=== PATIENT | male | born 1985 | race Caucasian/White ===

== ENCOUNTER 2023-10-12 11:58 | Inpatient (IN) | payer SELFPAY ==
[2023-10-12] VITALS (7 sets, daily range): BP systolic 123–135; BP diastolic 81–87; PULSE 94–113; RESP 18–24; TEMP 36.4–36.7; O2SAT 89–95; BMI 35.6; BMI 34.4
--- NOTE | ~2023-10-12 | XR_ITS ---
EXAMINATION: XR CHEST 2 VIEW CLINICAL INFORMATION: Cough COMPARISON: None TECHNIQUE: PA and lateral views of the chest obtained. FINDINGS: There is a right suprahilar masslike opacity with adjacent infiltration extending into the right upper lobe. The left lung is clear. There are no pleural effusions. The cardiac silhouette is nonenlarged XR/XR chest 2V IMPRESSION: Right suprahilar masslike opacity, perhaps reflecting pneumonia. Close follow-up is recommended to confirm clearing. If persistent, suggest thoracic CT.
--- NOTE | ~2023-10-12 | CT_ITS ---
EXAMINATION: CT CHEST WITH CONTRAST CLINICAL INFORMATION: Masslike opacity right upper lobe COMPARISON: Previous chest x-ray from earlier the same day TECHNIQUE: Multidetector volumetric CT imaging of the chest was obtained after the administration of 65 mL of Omnipaque 350 intravenous contrast without immediate adverse reactions. Axial MIP volume rendering provided. Sagittal and coronal reformatted images were obtained. This CT examination was performed using dose optimization techniques as appropriate, variously including the following: *Automated exposure control *Adjustment of mA and/or kV according to patient size (this includes techniques or standardized protocols for targeted exams where dose is matched to indication/reason for exam; i.e. extremities or head) *Use of iterative reconstruction technique DLP: 345 mGy-cm FINDINGS: LUNGS: There are scattered areas of mild bronchial wall thickening probably representing airways disease. No evidence of pneumonia or mass. No bronchiectasis. No endobronchial or endotracheal lesion. MEDIASTINUM: The mediastinum is normal. Normal heart size. No pericardial effusion. No enlarged hilar or mediastinal lymph nodes. Normal vascular structures. Mild coronary artery calcification. PLEURA: There is no pleural effusion. No pleural mass or thickening. AXILLA: No lymphadenopathy. UPPER ABDOMEN: Fatty liver. OSSEOUS STRUCTURES: Unremarkable. CT/CT chest w IV con IMPRESSION: Mild scattered areas of bronchial wall thickening. No evidence of pneumonia or mass. Fleischner guidelines were followed.
--- NOTE | 2023-10-12 12:04 | ED.GENADULT ---
HPI - General Adult General Chief complaint: Dyspnea Stated complaint: SOB Time Seen by Provider: 10/12/23 13:15 Source: patient, RN notes reviewed and old records reviewed Mode of arrival: ambulatory Limitations: no limitations History of Present Illness ED Provider: JOLLY ROYAL PA-C HPI narrative: 38-year-old male, tobacco smoker (1/2 pack/day) past medical history of uncontrolled type 2 diabetes and hypertension presents to the ED today for evaluation of shortness of breath and dyspnea x5 days, worsening. He reports symptoms initially began with sore throat and nasal congestion. He now reports feeling short of breath. Admits to cough productive of yellow sputum. Adds his father who he lives with was recently treated for strep throat. Admits to taking amoxicillin over the last few days that he had left over from an ear infection approximately a month ago. Denies known history of asthma or COPD. Admits to smoking tobacco currently however has not been able to smoke as much due to his shortness of breath. Denies recent travel or long car rides. Denies fever, chills, chest pain, calf pain/swelling, hemoptysis, palpitations. Related Data Allergies Allergy/AdvReac Type Severity Reaction Status Date / Time cat dander [CAT] Allergy Mild FACIAL Verified 10/12/23 12:07 SWELLING WATERY EYES dog dander [DOG] Allergy Mild FACIAL Verified 10/12/23 12:07 SWELLING, WATERY EYES Review of Systems Review of Systems: Constitutional: No fever, chills, fatigue, night sweats, weight changes ENT/Mouth: No ear pain, hearing loss, nasal congestion, sinus pain, rhinorrhea, sore throat Eyes: No eye pain, swelling, redness, vision changes, discharge Cardio: No chest pain, palpitations, WHALEN, orthopnea, peripheral edema Pulm: No cough, sputum, hemoptysis, +sob, +dyspnea, +wheezing GI: No nausea, vomiting, hematemesis, abdominal pain, diarrhea, constipation, hematochezia, melena : No irregular bleeding, dysuria, frequency, urgency, hesitancy, hematuria, flank pain, urinary flow changes, urinary incontinence or retention MSK: No back pain, neck pain, joint pain, myalgias Skin: No lesions, rashes Neuro: No weakness, numbness, paresthesias, LOC, dizziness, headache Psych: No anxiety/panic, depression, SI/HI, AH/VH All other systems reviewed and are negative. [facility], [facility] Past Medical History Attestation statement: The following information was validated with the patient. Source: old records reviewed and nursing notes reviewed Medical History Cigarette smoker Hypertension Type 2 diabetes mellitus Social History Social History Advance Directives: No Do you have a plan to hurt others: No Plan Physical Exam ED Vital Signs: Vital Signs - 24 hr 10/12/23 12:02 10/12/23 13:54 10/12/23 14:01 Temperature 98 F Pulse Rate 94 96 Respiratory Rate 24 H 18 Blood Pressure 123/83 Pulse Oximetry 92 90 L Oxygen Delivery Method Room Air 10/12/23 17:35 Temperature Pulse Rate Respiratory Rate Blood Pressure Pulse Oximetry 89 L Oxygen Delivery Method BMI result Body Mass Index 35.6 Tachypneic Const General: cooperative, healthy appearing and comfortable Orientation/consciousness: patient oriented x3 Limitations: no limitations HENMT Head: Yes normal to inspection, Yes No palpable skull fracture present, Yes normocephalic and Yes atraumatic Eyes General: appearance normal, both eyes and all related structures Neck Neck: Yes normal visual inspection, Yes full ROM and Yes no lymphadenopathy Resp Other: + mild respiratory distress. Increased effort of breathing with tripoding. Diffuse inspiratory wheezes and rhonchi. speaking in 3-4 word sentences. Cardio Rate: regular rate Rhythm: regular rhythm Skin General skin exam: no rashes or lesions noted Neuro General: patient oriented x3 and gait normal Course Course Course Narrative: This is a rapid medical exam performed by Chandana Kingston NP: Additional HPI, ROS, PE not included below will be deferred to primary provider. Patient is a 38-year-old male current smoker presenting to the ED with complaint of sore throat since Wednesday, shortness of breath, congestion. Father was diagnosed with strep so he started taking amoxicillin that was prescribed to him for an ear infection but symptoms have not improved. Also nausea and headaches, denies vomiting or diarrhea. PE: posterior oropharynx erythematous, nonproductive cough noted in triage Plan: viral and strep swabs, cxr Reevaluation(s) Reevaluation #1: 1457-- CBC without leukocytosis or left shift. No anemia. H&H stable. D-dimer undetectable > VTE unlikely. Chemistry without acute electrolyte abnormality requiring intervention. Random glucose 366. Patient states that he is diabetic however does not currently take medication for it. IV fluids ordered. Will repeat glucose. BNP WNL at 16. CHF unlikely. Normal renal and liver function. He has tested negative for COVID, flu, RSV, strep throat. Chest xr shows right sprahilar masslike opacity, perhaps suggesting pneumonia. Close follow-up recommended. Given patient's extensive shortness of breath along with hypoxia, will order CT chest with con to r/o pathology. Patient aware and agreeable. > ambulatory O2 dropped to 90% on room air 1751-- CT chest showing mild scattered areas of bronchial wall thickening without evidence of pneumonia or mass. On re-evaluation, patient reports minimal improvement in breathing following albuterol treatment, IV magnesium and IV Solu-Medrol. He still reports difficulty taking deep breaths in and out. On exam, there is improvement in wheezing however there are still rhonchi noted to bilateral bases. He is satting around 90% on room air while sitting on ED bed. Ambulatory O2 repeated and showed drop in oxygen saturation 89% on room air. Given continued symptoms with evidence of hypoxia, will present patient for admission. 1800-- Discussed with hospitalist who has agreed to admission for acute bronchitis and hypoxemia. Ginny Storey to place admission orders. Medications Administered Generic Name Dose Route Start Last Admin Trade Name Freq PRN Reason Stop Dose Admin Azithromycin 500 mg/ Sodium 250 mls @ 125 mls/hr 10/12/23 18:30 10/12/23 19:18 Chloride IV 125 mls/hr Q24H MARGUERITE Administration Discontinued Medications Generic Name Dose Route Start Last Admin Trade Name Freq PRN Reason Stop Dose Admin Albuterol Sulfate 2.5 mg/ 0 mg 10/12/23 13:57 10/12/23 14:01 Albuterol/Ipratropium 3 ml INHALE 10/12/23 13:58 1 dose ONCE ONE Administration Sodium Chloride 1,000 mls @ 999 mls/hr 10/12/23 14:30 10/12/23 16:16 Ns IV 10/12/23 15:30 Infused .Q1H1M MARGUERITE Infusion Magnesium Sulfate 2 gm in 50 mls @ 150 mls/hr 10/12/23 15:54 10/12/23 16:59 Magnesium Sulfate/H2o IV 10/12/23 16:13 Infused ONCE ONE Infusion Iohexol 100 ml 10/12/23 15:10 10/12/23 15:10 Iohexol 350 Mg/Ml 100 Ml Infus..Btl IV 10/12/23 15:11 65 ml ONCE ONE Administration Methylprednisolone Sodium Succinate 125 mg 10/12/23 13:41 10/12/23 14:25 Methylprednisolone Sod Succ 125 Mg/2 Ml Vial IVPUSH 10/12/23 13:42 125 mg ONCE ONE Administration Medical Decision Making Medical Decision Making MDM Narrative: 8-year-old male, tobacco smoker (1/2 pack/day) presents to the ED today for evaluation of shortness of breath and dyspnea x5 days, worsening. On presentation, patient tachypneic. Satting 92% on room air. On ambulatory O2, patient's oxygen saturation dropped to 90% on room air. On exam, patient in mild respiratory distress. Increased effort of breathing with tripoding. Diffuse inspiratory wheezes and rhonchi. speaking in 3-4 word sentences.. RRR. Skin warm/dry/intact. ambulating with steady gait. skin w/d/i. no rashes. Differential diagnosis includes asthma exacerbation, COPD exacerbation, pneumonia, bronchitis, viral syndrome, strep throat, anemia, CHF, electrolyte abnormality Plan for labs, viral/ strep swab, CXR, ED bronch protocol and re-evaluation. Differential Diagnosis Differential Diagnoses: The differential diagnosis associated with the presentation includes Above Admission/Observation Consideration of admission/observation: Escalation of care including admission/observation considered Patient to be admitted to medicine for acute bronchitis and hypoxemia. Consult Healthcare Provider Management of the patient was discussed with: Hospitalist (Dr. Andersen, Ginny Storey PA-C) Lab Data MDM Lab Attestation statement: I reviewed the patient's lab results. As above 10/12/23 13:50 10/12/23 13:50 Labs: Lab Results 10/12/23 10/12/23 10/12/23 Range/Units 12:16 13:48 13:50 WBC 7.0 (4.8-10.8) X10*3/uL RBC 5.42 (4.60-5.80) X10*6/uL Hgb 16.9 (14.0-18.0) g/dl Hct 46.1 (42.0-52.0) % MCV 85.1 (80.0-98.0) fL MCH 31.2 (27.0-33.0) pg MCHC 36.7 H (31.0-36.0) g/dl RDW 11.5 (11.0-16.0) % Plt Count 192 (160-400) X10*3/uL MPV 11.7 (9.4-12.4) fL Immature Gran % (Auto) 0.3 (0.0-0.4) % Neut % (Auto) 62.0 (45-73) % Lymph % (Auto) 24.6 (20-40) % [place] % (Auto) 8.5 (2-11) % Eos % (Auto) 4.0 (0-4) % Baso % (Auto) 0.6 (0-2) % Lymph # (Auto) 1.7 (1.2-4.9) X10*3/uL [place] # (Auto) 0.6 (0.1-1.2) X10*3/uL Eos # (Auto) 0.3 (0.0-0.4) X10*3/uL Baso # (Auto) 0.0 (0.0-0.2) X10*3/uL Abs Immat Gran (auto) 0.02 (0.00-0.03) X10*3/uL Absolute Neuts (auto) 4.4 (2.0-8.3) x10*3/uL Absolute Nucleated RBC 0.000 (0.0-0.012) X10*3/uL Nucleated RBC % (auto) 0.0 (0.0-0.2) /100WBC D-Dimer High Sensitivty < 150 NG/ML Sodium 136 (135-145) mmol/L Potassium 4.3 (3.3-5.1) mmol/L Chloride 99 (96-108) mmol/L Carbon Dioxide 27 (22-29) mmol/L Anion Gap 14 (12-20) BUN 13 (9-16) mg/dL Creatinine 0.92 (0.5-1.4) mg/dL Estim Creat Clear Calc 143.5 Estimated GFR > 60 Random Glucose 366 H* (60-115) mg/dL Calcium 9.9 (8.4-10.2) mg/dL Magnesium 1.7 (1.6-2.6) mg/dL Total Bilirubin 1.0 (0.0-1.0) mg/dL AST 25 (5-37) U/L ALT 49 H (0-40) U/L Alkaline Phosphatase 68 (39-117) U/L B-Natriuretic Peptide 16 (<100) pg/mL Total Protein 7.9 (6.5-8.0) g/dL Albumin 4.4 (3.5-5.0) g/dL Influenza Type A (PCR) NEGATIVE (Negative) Influenza Type B (PCR) NEGATIVE (Negative) RSV RNA Qual (PCR) NEGATIVE (Negative) SARS-CoV-2 RNA (RT-PCR) NEGATIVE (Negative) S. pyogenes GrpA ANDREA Negative (Negative) Independent Interpretation I performed an independent interpretation of an: Plain X-Ray and CT Scan Interpretation: XR with question consolidation to right upper lobe, agree with radiologist's interpretation. CT chest without mass, agree with radiologist's interpretation. Radiology Impression Discussion of test interpretation with radiology: I have reviewed the radiologist's reading. Radiologist Impression: EXAMINATION: XR CHEST 2 VIEW CLINICAL INFORMATION: Cough COMPARISON: None TECHNIQUE: PA and lateral views of the chest obtained. FINDINGS: There is a right suprahilar masslike opacity with adjacent infiltration extending into the right upper lobe. The left lung is clear. There are no pleural effusions. The cardiac silhouette is nonenlarged XR/XR chest 2V IMPRESSION: Right suprahilar masslike opacity, perhaps reflecting pneumonia. Close follow-up is recommended to confirm clearing. If persistent, suggest thoracic CT. EXAMINATION: CT CHEST WITH CONTRAST CLINICAL INFORMATION: Masslike opacity right upper lobe COMPARISON: Previous chest x-ray from earlier the same day TECHNIQUE: Multidetector volumetric CT imaging of the chest was obtained after the administration of 65 mL of Omnipaque 350 intravenous contrast without immediate adverse reactions. Axial MIP volume rendering provided. Sagittal and coronal reformatted images were obtained. This CT examination was performed using dose optimization techniques as appropriate, variously including the following: *Automated exposure control *Adjustment of mA and/or kV according to patient size (this includes techniques or standardized protocols for targeted exams where dose is matched to indication/reason for exam; i.e. extremities or head) *Use of iterative reconstruction technique DLP: 345 mGy-cm FINDINGS: LUNGS: There are scattered areas of mild bronchial wall thickening probably representing airways disease. No evidence of pneumonia or mass. No bronchiectasis. No endobronchial or endotracheal lesion. MEDIASTINUM: The mediastinum is normal. Normal heart size. No pericardial effusion. No enlarged hilar or mediastinal lymph nodes. Normal vascular structures. Mild coronary artery calcification. PLEURA: There is no pleural effusion. No pleural mass or thickening. AXILLA: No lymphadenopathy. UPPER ABDOMEN: Fatty liver. OSSEOUS STRUCTURES: Unremarkable. CT/CT chest w IV con IMPRESSION: Mild scattered areas of bronchial wall thickening. No evidence of pneumonia or mass. Fleischner guidelines were followed. Prescription Management I considered prescription management with: Antibiotic Chronic Conditions Patient?s care impacted by: Diabetes Social Determinants Patient?s care significantly limited by Social Determinants of Health including: Other Social Determinant of Health Critical Care Time Critical Care Time Critical Care Time: Yes Total Critical Care Time: 35 Attestation: Critical care time in the amount of 35 minutes has been provided to the patient in terms of direct patient care, frequent reevaluation after IV mag and IV solumedrol, consultation with hospitalist review and interpretation of medical data and results, and management of potentially life-threatening conditions. This is all outside of any medical procedures. Discharge Plan Discharge Clinical Impression: Acute bronchitis, Hypoxemia, Uncontrolled diabetes mellitus with hyperglycemia Patient Disposition: Admitted As Inpatient
[2023-10-12 12:29] LABS: IDNOW Serial# 58CA691E; Strep A Nucleic Acid Negative (Negative)
[2023-10-12 13:00] LABS: Influenza A PCR NEGATIVE (Negative); Influenza B PCR NEGATIVE (Negative); Resp Syncy Virus RNA Qual PCR NEGATIVE (Negative); SARS COV2 PCR INHOUSE NEGATIVE (Negative)
[2023-10-12 13:57] LABS: MANUAL DIFF FLAG NO
[2023-10-12 14:01] LABS: Basophils Percent Auto 0.6 % (0-2); Eosinophils Absolute Auto 0.3 X10*3/uL (0.0-0.4); Hematocrit 46.1 % (42.0-52.0); Hemoglobin 16.9 g/dl (14.0-18.0); Imm Gran Abs Auto 0.02 X10*3/uL (0.00-0.03); Imm Gran Pct Auto 0.3 % (0.0-0.4); Lymphocytes Absolute Auto 1.7 X10*3/uL (1.2-4.9); Lymphocytes Percent Auto 24.6 % (20-40); Mean Corpuscular HGB Conc 36.7 g/dl (31.0-36.0); Mean Corpuscular Hemoglobin 31.2 pg (27.0-33.0); Mean Corpuscular Volume 85.1 fL (80.0-98.0); Mean Platelet Volume 11.7 fL (9.4-12.4); Monocytes Absolute Auto 0.6 X10*3/uL (0.1-1.2); Monocytes Percent Auto 8.5 % (2-11); Neutrophils Absolute Auto 4.4 x10*3/uL (2.0-8.3); Platelet Count 192 X10*3/uL (160-400); Red Blood Count 5.42 X10*6/uL (4.60-5.80); Red Cell Distribution Width 11.5 % (11.0-16.0)
[2023-10-12] MEDS: Albuterol Sulfate 2.5 MG, Albuterol/Iprat 2.5/0.5MG 3 ML 3 ML INHALE (14:01)
[2023-10-12 14:13] LABS: D Dimer High Sensitivity < 150 NG/ML
[2023-10-12] MEDS: methylPREDNISolone Sod Succ 125 MG/2 ML VIAL IVPUSH (14:25)
[2023-10-12 14:27] LABS: B Type Natriuretic Peptide 16 pg/mL (<100)
[2023-10-12 14:29] LABS: Alanine Aminotransferase 49 U/L (0-40); Albumin Level 4.4 g/dL (3.5-5.0); Alkaline Phosphatase 68 U/L (39-117); Anion Gap 14 (12-20); Aspartate Amino Transferase 25 U/L (5-37); Blood Urea Nitrogen 13 mg/dL (9-16); Calcium 9.9 mg/dL (8.4-10.2); Carbon Dioxide 27 mmol/L (22-29); Chloride 99 mmol/L (96-108); Creatinine Clr Calc Pharmacy 143.5; Estimated Glomerular Filt Rate > 60; Glucose Random 366 mg/dL (60-115); Magnesium 1.7 mg/dL (1.6-2.6); Potassium 4.3 mmol/L (3.3-5.1); Sodium 136 mmol/L (135-145); Total Protein 7.9 g/dL (6.5-8.0)
[2023-10-12] MEDS: 0.9 % Sodium Chloride 1,000 ML 999 ML IV (14:40)
[2023-10-12] MEDS: iohexoL 350 MG/ML 100 ML INFUS..BTL IV (15:10)
[2023-10-12] MEDS: Magnesium Sulfate/H2O 2 GM/50 ML PIGGYBACK IV (16:14)
--- NOTE | 2023-10-12 18:26 | P.HPHOSP_ITS ---
History of Present Illness Date of Service: 10/12/23 Attending physician on admission: Doyle Andersen Chief Complaint: sob, wheezing, cough 38-year-old male with history of uncontrolled type 2 diabetes, hypertension, who is a current 1/2 pack per day cigarette smoker presented to the ED earlier today for evaluation of upper respiratory symptoms ongoing for 5 days. He reports symptoms started with a sore throat and then developed nasal congestion and productive cough with yellow sputum. He is also reporting shortness of breath and wheezing. Has no known history of asthma or COPD. While in the ED, was briefly tachypneic but vital signs otherwise stable except with ambulation when O2 was noted to drop to 88-89% on room air. There is no leukocytosis. Renal function electrolyte levels are normal. Glucose is 366. He is unsure what his last A1c is as he has not seen a medical provider in years due to lack of insurance. He has not currently on any home medications. Negative for influenza, COVID-19, and RSV. Chest CT shows mild scattered areas of bronchial wall thickening without evidence of pneumonia or mass. In the ED, he was treated with DuoNeb, IV magnesium, normal saline, and 125 mg of IV methylprednisolone. He will be admitted for further management of acute bronchitis with exercise-induced hypoxemia. Review of Systems 2 Review of Systems: Yes all other systems are reviewed and are negative [facility] Medical History Cigarette smoker Hypertension Type 2 diabetes mellitus Social History Household Members: Children Housing: House Do you presently have visiting nurse or other home services: No Alcohol intake: current Patient Tobacco Use Status: Current everyday Tobacco user Tobacco use type: Cigarette Cigarettes Per Day: 10 Years Smoked: 16 Smoked in Last 30 Days: Yes Patient Interested in Nicotine Replacement: No Patient Given Instructions on How to Stop Smoking: No Second Hand Smoke Exposure: No Use of substances other than those prescribed or required for medical reasons: Yes Substance Use Type: Marijuana Substance Use Frequency: Occasionally Last Used Substance: Weeks (ago) Currently Displaying Signs/Symptoms of Drug Intoxication Withdrawal: No Any prior treatment program specific to substance use: No Have you been hit, kicked, punched, or otherwise hurt by someone within the past year? If so, by whom?: No Do you feel safe in your current relationship?: Yes Is there a partner from a previous relationship who is making you feel unsafe now?: No Are you made to feel afraid or neglected: No Advance Directives: No Do you have a plan to hurt others: No Plan Recently lost weight without trying: No How much weight loss: Not applicable Eating poorly because of decreased appetite: No Nutrition screen score: 0 Nutrition Risks: No Nutritional Risk Poor oral hygiene: No service: No Meds Allergies Allergy/AdvReac Type Severity Reaction Status Date / Time cat dander [CAT] Allergy Mild FACIAL Verified 10/12/23 12:07 SWELLING WATERY EYES dog dander [DOG] Allergy Mild FACIAL Verified 10/12/23 12:07 SWELLING, WATERY EYES Physical Exam 2 Vital Signs and Narrative: Vital Signs: Last Vital Signs Temp 98 F 10/12/23 12:02 Pulse 96 10/12/23 14:01 Resp 18 10/12/23 14:01 BP 123/83 10/12/23 12:02 Pulse Ox 89 L 10/12/23 17:35 O2 Del Method Room Air 10/12/23 12:02 BMI result Body Mass Index 35.6 Constitutional - Awake and Alert, No apparent distress Eyes - PERRLA, EOMI Cardiovascular - S1S2, RRR, No edema Respiratory - Normal lung expansion, Normal respiratory effort, No respiratory distress, bilateral expiratory wheezes Gastrointestinal - NT / ND; +BS; No rebound or guarding Extremities - no calf tenderness bilaterally, no swelling Skin - Warm/Dry Neurological - Alert & oriented x3 Psychological - Appropriate affect Results Labs 10/13/23 05:43 10/13/23 05:43 Labs: Laboratory Results - last 24 hr 10/12/23 10/12/23 10/12/23 12:16 13:48 13:50 MCV 85.1 MCH 31.2 MCHC 36.7 H RDW 11.5 Plt Count 192 MPV 11.7 Immature Gran % (Auto) 0.3 Neut % (Auto) 62.0 Lymph % (Auto) 24.6 [place] % (Auto) 8.5 Eos % (Auto) 4.0 Baso % (Auto) 0.6 Lymph # (Auto) 1.7 [place] # (Auto) 0.6 Eos # (Auto) 0.3 Baso # (Auto) 0.0 Abs Immat Gran (auto) 0.02 Absolute Neuts (auto) 4.4 Absolute Nucleated RBC 0.000 Nucleated RBC % (auto) 0.0 D-Dimer High Sensitivty < 150 Anion Gap 14 Estim Creat Clear Calc 143.5 Estimated GFR > 60 Random Glucose 366 H* Calcium 9.9 Magnesium 1.7 Total Bilirubin 1.0 AST 25 ALT 49 H Alkaline Phosphatase 68 B-Natriuretic Peptide 16 Total Protein 7.9 Albumin 4.4 Influenza Type A (PCR) NEGATIVE Influenza Type B (PCR) NEGATIVE RSV RNA Qual (PCR) NEGATIVE SARS-CoV-2 RNA (RT-PCR) NEGATIVE S. pyogenes GrpA ANDREA Negative Imaging Radiologist's Impressions: Impressions Chest X-Ray 10/12/23 12:30 IMPRESSION: Right suprahilar masslike opacity, perhaps reflecting pneumonia. Close follow-up is recommended to confirm clearing. If persistent, suggest thoracic CT. Chest CT 10/12/23 15:02 IMPRESSION: Mild scattered areas of bronchial wall thickening. No evidence of pneumonia or mass. Fleischner guidelines were followed. Assessment and Plan (1) Acute bronchitis: Status: Acute (2) Exercise hypoxemia: Status: Acute Plan 38-year-old male with history of uncontrolled type 2 diabetes, hypertension, who is a current 1/2 pack per day cigarette smoker admitted for further management of acute bronchitis with exercise-induced hypoxemia. # exercise-induced hypoxemia due to acute bronchitis -possibly viral but can not rule out COPD given history of cigarette smoking -negative for COVID-19, RSV, influenza. Check RPP -chest CT shows bronchial wall thickening but no mass or pneumonia -give azithromycin for pleiotropic effect -IV methylprednisolone 40 mg b.i.d. -DuoNebs q.4h while awake, p.r.n. -guaifenesin p.r.n. -no leukocytosis, no sepsis. # uncontrolled type 2 diabetes -check hemoglobin A1c now -POC glucose, diabetic diet -initiate 20 units Lantus -will need outpatient follow-up with new PCP and diabetes management # hypertension -normotensive at this time, hold on initiating meds for now. Consider wes/arb if develops htn # cigarette smoker -declines replacement therapy, cessation advised # severe obesity with BMI greater than 35 -weight loss efforts encouraged DVT prophylaxis-SCPs, early ambulation Full code Patient requires inpatient stay at least 2 midnights for treatment of acute bronchitis with exercise-induced hypoxemia who will require IV steroids, nebulizers, and close monitoring of respiratory status to monitor for and prevent decompensation Quality Stroke Does the patient have a stroke diagnosis?: No VTE Prior VTE?: No VTE Risk Level:: Medical - moderate - high VTE Device Contraindication: N/A - Device Ordered VTE Drug Contraindication: Treatment Not Indicated
[2023-10-12] MEDS: Azithromycin 500 MG in 0.9 % Sodium Chloride 250 ML 125 MG IV (19:18)
--- NOTE | 2023-10-12 19:48 | PHA.MEDREC ---
Pharmacy Consult ? Medication Reconciliation Pharmacy has completed the medication reconciliation.
[2023-10-12] MEDS: Albuterol/Iprat 2.5/0.5MG 3 ML AMPUL.NEB INHALE (20:37)
[2023-10-12 21:15] LABS: Glucose, Whole Blood > 600 mg/dL (60-115)
[2023-10-12 21:15] LABS: Glucose, Whole Blood 586 mg/dL (60-115)
[2023-10-12] MEDS: methylPREDNISolone Sod Succ 40 MG/ML VIAL IVPUSH (21:28)
[2023-10-12] MEDS: 0.9 % Sodium Chloride Flush 3 ML SYRINGE IVFLUSH (21:28)
[2023-10-12] MEDS: Insulin Glargine,Hum.rec.anlog 100 UNIT/ML 10 ML VIAL 20 UNIT SUBCUT (21:29)
[2023-10-12] MEDS: 0.9 % Sodium Chloride 500 ML IV (21:36)
[2023-10-12] MEDS: Insulin Lispro 100 UNIT/ML 3 ML VIAL SUBCUT (21:36)
--- NOTE | 2023-10-12 22:36 | PC.NURSE ---
pt's [id number] notified ordered 500cc ns bolus and to give scheduled 20 units of lantus and 10 units lispro per sliding scale and recheck poc in 2 hours.
[2023-10-13 00:23] LABS: Glucose, Whole Blood 423 mg/dL (60-115)
[2023-10-13] MEDS: Insulin Lispro 100 UNIT/ML 3 ML VIAL 10 UNIT SUBCUT (01:13)
--- NOTE | 2023-10-13 01:15 | PC.NURSE ---
repeat [id number] notified ordered 10 units of lispro to recheck in 2 hours
[2023-10-13 03:07] VITALS: BP 130/77; PULSE 95; RESP 16; TEMP 36.6; O2SAT 94
[2023-10-13 03:14] LABS: Glucose, Whole Blood 299 mg/dL (60-115)
--- NOTE | 2023-10-13 03:16 | PC.NURSE ---
pt's repeat [id number] notified no new orders at this time.
[2023-10-13 05:59] LABS: Estimated Average Glucose 260 mg/dL; Hemoglobin A1c % 10.7 % (<6.0)
[2023-10-13 06:31] LABS: MANUAL DIFF FLAG NO
[2023-10-13 06:41] LABS: Basophils Percent Auto 0.1 % (0-2); Eosinophils Percent Auto 0.1 % (0-4); Hematocrit 45.2 % (42.0-52.0); Hemoglobin 16.3 g/dl (14.0-18.0); Imm Gran Abs Auto 0.04 X10*3/uL (0.00-0.03); Imm Gran Pct Auto 0.4 % (0.0-0.4); Lymphocytes Absolute Auto 0.8 X10*3/uL (1.2-4.9); Lymphocytes Percent Auto 8.2 % (20-40); Mean Corpuscular HGB Conc 36.1 g/dl (31.0-36.0); Mean Corpuscular Hemoglobin 31.3 pg (27.0-33.0); Mean Corpuscular Volume 86.8 fL (80.0-98.0); Monocytes Absolute Auto 0.2 X10*3/uL (0.1-1.2); Monocytes Percent Auto 2.2 % (2-11); Platelet Count 183 X10*3/uL (160-400); Red Blood Count 5.21 X10*6/uL (4.60-5.80); Red Cell Distribution Width 11.4 % (11.0-16.0); White Blood Count 10.1 X10*3/uL (4.8-10.8)
[2023-10-13 06:58] LABS: Anion Gap 14 (12-20); Blood Urea Nitrogen 13 mg/dL (9-16); Calcium 9.3 mg/dL (8.4-10.2); Carbon Dioxide 23 mmol/L (22-29); Chloride 102 mmol/L (96-108); Creatinine Clr Calc Pharmacy 164.3; Estimated Glomerular Filt Rate > 60; Glucose Random 313 mg/dL (60-115); Sodium 135 mmol/L (135-145)
[2023-10-13 07:00] VITALS: BP 136/83; PULSE 98; RESP 18; TEMP 36.2; O2SAT 92
[2023-10-13 07:11] LABS: Glucose, Whole Blood 332 mg/dL (60-115)
[2023-10-13] MEDS: 0.9 % Sodium Chloride Flush 3 ML SYRINGE IVFLUSH (07:45)
[2023-10-13] MEDS: methylPREDNISolone Sod Succ 40 MG/ML VIAL IVPUSH (07:45)
[2023-10-13] MEDS: Insulin Lispro 100 UNIT/ML 3 ML VIAL SUBCUT ×2 (07:45→11:38)
[2023-10-13 08:25] VITALS: PULSE 100; RESP 18; O2SAT 90
[2023-10-13] MEDS: Albuterol/Iprat 2.5/0.5MG 3 ML AMPUL.NEB INHALE ×2 (08:25→11:21)
--- NOTE | 2023-10-13 09:36 | MHC.CM.PN ---
Addendum entered by Cherrie Orr RN 10/13/23 11:00: Per MD, patient to dc home self care. Will restart Metformin, will also dc on PO abx and prednisone. Patient states his insurance will not be active until 10/17. Rx to be sent to [facility] pharmacy. Patient will pay out of pocket. Father will transport home. Original Note: Patient lives in a home alone. Functionally independent. Denies use of services or DME. No PCP. States insurance will be active 10/17. [facility] provider brochure given. No HCP. CM provided education and offered assistance. Patient declined. DP: Goal is home self care, father to transport. CM will continue to follow.
[2023-10-13 11:19] LABS: Glucose, Whole Blood 347 mg/dL (60-115)
[2023-10-13 11:22] VITALS: PULSE 100; RESP 18; O2SAT 92
--- NOTE | 2023-10-13 11:40 | PM.DS ---
DS: Providers Provider Date of Service: 10/13/23 Date of admission: 10/12/23 18:21 Date of discharge: 10/13/23 Primary care physician: None Physician DS: Diagnosis Discharge Diagnosis (1) Acute bronchitis: Status: Acute (2) Exercise hypoxemia: Status: Acute DS: Summary Hospital Course Hospital Course: 38-year-old male with history of uncontrolled type 2 diabetes, hypertension, who is a current 1/2 pack per day cigarette smoker presented to the ED earlier today for evaluation of upper respiratory symptoms ongoing for 5 days. He reports symptoms started with a sore throat and then developed nasal congestion and productive cough with yellow sputum. He is also reporting shortness of breath and wheezing. Has no known history of asthma or COPD. While in the ED, was briefly tachypneic but vital signs otherwise stable except with ambulation when O2 was noted to drop to 88-89% on room air. There is no leukocytosis. Renal function electrolyte levels are normal. Glucose is 366. He is unsure what his last A1c is as he has not seen a medical provider in years due to lack of insurance. He has not currently on any home medications. Negative for influenza, COVID-19, and RSV. Chest CT shows mild scattered areas of bronchial wall thickening without evidence of pneumonia or mass. In the ED, he was treated with DuoNeb, IV magnesium, normal saline, and 125 mg of IV methylprednisolone. He will be admitted for further management of acute bronchitis with exercise-induced hypoxemia. Hospital Course Patient admitted to general medical floor and started on azithromycin and pulse dose steroids. Over the evening he was weaned off of O2 in the morning he was asking for discharge. His exam does show expiratory wheezes however his satting well on room air and is medically acceptable to discharge home with a course of oral doxycycline prednisone taper. He has been educated about smoking cessation. He also has been educated about his diabetes; he notes he has been on metformin in the past but never has been compliant. He understands that steroids will increase his sugar and he needs to be compliant with his metformin. He will be choosing a new PCP and can follow-up when available. Time Attestation Discharge Coordination Time (in mins): 35 Quality: Safe Use of Opioids Does Pt have an Active Cancer Diagnosis on the Problem List?: No Quality: Stroke Does the patient have a stroke diagnosis?: No Physical Exam Vital Signs: Vital Signs: Last Vital Signs Temp 97.2 F 06/26/24 07:00 Pulse 100 10/13/23 11:22 Resp 18 10/13/23 11:22 BP 136/83 10/13/23 07:00 Pulse Ox 92 10/13/23 07:00 O2 Del Method Room Air 10/13/23 07:00 BMI result Body Mass Index 34.4 Const: Other: Awake alert no acute distress Resp: Other: Scant expiratory wheezes at bases; good aeration to bases Cardio: Other: No S4; positive S1-S2; no S3 murmurs rubs or gallops GI: Other: Soft nontender nondistended normoactive bowel sounds Extrem: Other: No edema bilaterally DS: Data Data Completed and Pending Labs on day of discharge: Laboratory Results - last 24 hr 10/12/23 10/12/23 10/12/23 12:16 13:48 13:50 WBC 7.0 RBC 5.42 Hgb 16.9 Hct 46.1 MCV 85.1 MCH 31.2 MCHC 36.7 H RDW 11.5 Plt Count 192 MPV 11.7 Immature Gran % (Auto) 0.3 Neut % (Auto) 62.0 Lymph % (Auto) 24.6 [place] % (Auto) 8.5 Eos % (Auto) 4.0 Baso % (Auto) 0.6 Lymph # (Auto) 1.7 [place] # (Auto) 0.6 Eos # (Auto) 0.3 Baso # (Auto) 0.0 Abs Immat Gran (auto) 0.02 Absolute Neuts (auto) 4.4 Absolute Nucleated RBC 0.000 Nucleated RBC % (auto) 0.0 D-Dimer High Sensitivty < 150 Sodium 136 Potassium 4.3 Chloride 99 Carbon Dioxide 27 Anion Gap 14 BUN 13 Creatinine 0.92 Estim Creat Clear Calc 143.5 Estimated GFR > 60 POC Glucose Random Glucose 366 H* Estimat Average Glucose Hemoglobin A1c % Calcium 9.9 Magnesium 1.7 Total Bilirubin 1.0 AST 25 ALT 49 H Alkaline Phosphatase 68 B-Natriuretic Peptide 16 Total Protein 7.9 Albumin 4.4 Influenza Type A (PCR) NEGATIVE Influenza Type B (PCR) NEGATIVE RSV RNA Qual (PCR) NEGATIVE SARS-CoV-2 RNA (RT-PCR) NEGATIVE S. pyogenes GrpA ANDREA Negative 06/25/24 06/25/24 06/25/24 18:33 21:06 21:08 WBC RBC Hgb Hct MCV MCH MCHC RDW Plt Count MPV Immature Gran % (Auto) Neut % (Auto) Lymph % (Auto) [place] % (Auto) Eos % (Auto) Baso % (Auto) Lymph # (Auto) [place] # (Auto) Eos # (Auto) Baso # (Auto) Abs Immat Gran (auto) Absolute Neuts (auto) Absolute Nucleated RBC Nucleated RBC % (auto) D-Dimer High Sensitivty Sodium Potassium Chloride Carbon Dioxide Anion Gap BUN Creatinine Estim Creat Clear Calc Estimated GFR POC Glucose > 600 H* 586 H* Random Glucose Estimat Average Glucose 260 Hemoglobin A1c % 10.7 H Calcium Magnesium Total Bilirubin AST ALT Alkaline Phosphatase B-Natriuretic Peptide Total Protein Albumin Influenza Type A (PCR) Influenza Type B (PCR) RSV RNA Qual (PCR) SARS-CoV-2 RNA (RT-PCR) S. pyogenes GrpA ANDREA 10/13/23 10/13/23 10/13/23 00:20 03:09 05:43 WBC 10.1 RBC 5.21 Hgb 16.3 Hct 45.2 MCV 86.8 MCH 31.3 MCHC 36.1 H RDW 11.4 Plt Count 183 MPV 12.0 Immature Gran % (Auto) 0.4 Neut % (Auto) 89.0 H Lymph % (Auto) 8.2 L [place] % (Auto) 2.2 Eos % (Auto) 0.1 Baso % (Auto) 0.1 Lymph # (Auto) 0.8 L [place] # (Auto) 0.2 Eos # (Auto) 0.0 Baso # (Auto) 0.0 Abs Immat Gran (auto) 0.04 H Absolute Neuts (auto) 9.0 H Absolute Nucleated RBC 0.000 Nucleated RBC % (auto) 0.0 D-Dimer High Sensitivty Sodium 135 Potassium 4.0 Chloride 102 Carbon Dioxide 23 Anion Gap 14 BUN 13 Creatinine 0.79 Estim Creat Clear Calc 164.3 Estimated GFR > 60 POC Glucose 423 H* 299 H Random Glucose 313 H Estimat Average Glucose Hemoglobin A1c % Calcium 9.3 D Magnesium Total Bilirubin AST ALT Alkaline Phosphatase B-Natriuretic Peptide Total Protein Albumin Influenza Type A (PCR) Influenza Type B (PCR) RSV RNA Qual (PCR) SARS-CoV-2 RNA (RT-PCR) S. pyogenes GrpA ANDREA 10/13/23 10/13/23 07:06 11:14 WBC RBC Hgb Hct MCV MCH MCHC RDW Plt Count MPV Immature Gran % (Auto) Neut % (Auto) Lymph % (Auto) [place] % (Auto) Eos % (Auto) Baso % (Auto) Lymph # (Auto) [place] # (Auto) Eos # (Auto) Baso # (Auto) Abs Immat Gran (auto) Absolute Neuts (auto) Absolute Nucleated RBC Nucleated RBC % (auto) D-Dimer High Sensitivty Sodium Potassium Chloride Carbon Dioxide Anion Gap BUN Creatinine Estim Creat Clear Calc Estimated GFR POC Glucose 332 H 347 H Random Glucose Estimat Average Glucose Hemoglobin A1c % Calcium Magnesium Total Bilirubin AST ALT Alkaline Phosphatase B-Natriuretic Peptide Total Protein Albumin Influenza Type A (PCR) Influenza Type B (PCR) RSV RNA Qual (PCR) SARS-CoV-2 RNA (RT-PCR) S. pyogenes GrpA ANDREA Discharge Plan Discharge Anticipated Discharge Date/Time: 10/13/23 11:35 Patient Disposition: Home, Self-Care Discharge Diagnosis: Acute tracheobronchitis Referrals: Physician,None [Primary Care Provider] - 1 Week Discharge Medications: New doxycycline hyclate 100 mg tablet 100 mg PO BID Qty: 14 0RF prednisone 20 mg tablet See Rx Instructions .Route .COMPLEX Qty: 18 0RF Rx Instructions: 20 mg orally; 3 tabs daily for 3 days, 2 tabs daily for 3 days, 1 tab daily for 3 days metformin 500 mg tablet 500 mg PO BID Qty: 14 0RF Discharge Orders: Discharge Order (Routine); Ordered 10/13/23 Ordered By: Doyle Andersen Diet: Advance to usual diet Activity on Discharge: As tolerated Stand Alone Forms: Patient Portal Discharge page Print Language: Slovenian Care Plan Goals: Complete course of doxycycline twice daily as ordered. Complete prednisone taper as ordered taking with food. Health Concerns: Your sugars were noted to be high. You have type 2 diabetes. Metformin 500 mg twice daily has been started. Follow-up with new PCP when appropriate Plan of Treatment: Quit smoking! Assessment: See discharge summary
[2023-10-13 12:39] LABS: Adenovirus PCR Not Detected (Not Detect.); Bordetella parapertussis PCR Not Detected (Not Detect.); Bordetella pertussis PCR Not Detected (Not Detect.); Chlamydia pneumoniae PCR Not Detected (Not Detect.); Coronavirus 229E PCR Not Detected (Not Detect.); Coronavirus HKU1 PCR Not Detected (Not Detect.); Coronavirus NL63 PCR Not Detected (Not Detect.); Coronavirus OC43 PCR Not Detected (Not Detect.); SARS-CoV-2 PCR Not Detected (Not Detect.)
[2023-10-13 12:40] LABS: Human metapneumovirus PCR Not Detected (Not Detect.); Influenza A PCR Not Detected (Not Detect.); Influenza B PCR Not Detected (Not Detect.); Mycoplasma pneumoniae PCR Not Detected (Not Detect.); Parainfluenza 1 PCR Not Detected (Not Detect.); Parainfluenza 2 PCR Not Detected (Not Detect.); Parainfluenza 3 PCR Not Detected (Not Detect.); Rhino/Enterovirus PCR Not Detected (Not Detect.)
[2023-10-13 12:41] LABS: Parainfluenza 4 PCR Not Detected (Not Detect.); RSV PCR Not Detected (Not Detect.)
== END 2023-10-13 12:17 | disposition home or self-care (01) | DRG 203 ==
LOC: HO.ED 13:44 → HO.EDOVER 18:30 → HO.S3 19:46
PROVIDERS: Physician Assistant Medical; Registered Nurse Emergency; Admitting Provider Physician Assistant; Emergency Provider Emergency Medicine; Visit Provider Hospitalist
DX: J20.9 Acute bronchitis, unspecified (principal); I10 Essential (primary) hypertension; F17.210 Nicotine dependence, cigarettes, uncomplicated; Z71.6 Tobacco abuse counseling; Z91.190 Patient's noncompliance with other medical treatment and regimen due to financial hardship; E66.01 Morbid (severe) obesity due to excess calories; Z68.35 Body mass index [BMI] 35.0-35.9, adult; Z20.822 Contact with and (suspected) exposure to COVID-19
CPT/HCPCS: 0241U; 36415; 71046; 71260; 80048; 80053; 82947; 83036; 83735; 83880; 85025; 85379; 87633; 87651; 94640; 99285; J0456; J2919; J3475; Q9967

== ENCOUNTER → 2023-10-12 18:21 | Outpatient (BNV) | payer SELFPAY | PROVIDERS: Admitting Provider Physician Assistant; Emergency Provider Emergency Medicine; Visit Provider Physician Assistant | DX: J20.9 Acute bronchitis, unspecified (principal); R09.02 Hypoxemia | CPT/HCPCS: 99223; 99239 ==

== ENCOUNTER 2023-11-16 06:11 | Emergency (ER) | payer OTHER, SELFPAY ==
--- NOTE | ~2023-11-16 | CT_ITS ---
EXAMINATION: CT ABDOMEN AND PELVIS WITH CONTRAST CLINICAL INFORMATION: Right gluteal abscess, perirectal involvement. COMPARISON: None available. TECHNIQUE: Multidetector volumetric images were obtained from the superior aspect of the liver through the pubic symphysis following administration 85 mL of Omnipaque 350 intravenous contrast. Sagittal and coronal reformatted images were obtained on the technologist's workstation. Oral contrast: No This CT examination was performed using dose optimization techniques as appropriate, variously including the following: *Automated exposure control *Adjustment of mA and/or kV according to patient size (this includes techniques or standardized protocols for targeted exams where dose is matched to indication/reason for exam; i.e. extremities or head) *Use of iterative reconstruction technique DLP: 871 mGy-cm FINDINGS: LUNG BASES: Bilateral lung bases are clear. LIVER: No focal lesion is seen in the liver. The liver parenchyma shows relatively low density, with mean attenuation of 51 Hounsfield units in spite of intravenous contrast enhancement, compatible with hepatic steatosis. GALLBLADDER AND BILIARY TREE: Gallbladder appears unremarkable without calcified stones. Common bile duct is not dilated. SPLEEN: The spleen is normal in size without focal lesion. PANCREAS: The pancreas appears unremarkable. ADRENAL GLANDS: Adrenal glands are normal in size without focal lesion bilaterally. KIDNEYS: Bilateral kidneys are normal in size without focal lesion. A punctate calculus is seen in posterior mid right renal calyx without causing caliectasis. BOWELS: There is no abnormal dilatation of the large and small bowel loops. RETROPERITONEUM: No abnormally enlarged retroperitoneal lymph nodes, mass or hematoma could be seen. BLOOD VESSELS: Abdominal aorta is normal in size and smoothly patent. ABDOMINAL WALL: There is diastases of rectus sheath. No evidence of ventral hernia. PERITONEUM: There was no ascites. There were no abdominal peritoneal inflammatory changes seen. No free peritoneal air was seen. No abnormally enlarged mesenteric lymph nodes are found. BONES: No fracture or dislocation. No focal bone lesion diagnostic of metastatic disease could be seen in the lumbar region. EXAMINATION: CT pelvis. FINDINGS: SOFT TISSUE: At the level of coccygeal tip, a right parasagittal gluteal subdermal rim-enhancing abscess is seen measuring 3.4 cm in AP diameter, 5.6 cm in width, 6.0 cm in vertical height, surrounded by subcutaneous fat inflammatory stranding, extending to midline posterior perianal region. No well defined fistula tract could be identified between the anal canal and the abscess. URINARY BLADDER: Urinary bladder fills normally with urine. BOWELS: There is no abnormal dilatation of the large and small bowel loops. Normal air-filled appendix is seen projecting posterior and superior to the cecum. Diverticula are seen in proximal sigmoid colon without inflammatory changes. GENITAL ORGANS: Seminal vesicles are unremarkable. Prostate gland is normal. LYMPH NODES: No abnormally enlarged iliac or inguinal lymph nodes are seen. PERITONEUM: No inflammatory changes, ascites or free peritoneal air are found in the pelvis. Small left inguinal hernia containing mesenteric fat is present. BONES: No fracture or dislocation. No focal bone lesion diagnostic of metastatic disease could be seen in the pelvis. CT/CT abdomen pelvis w IV con IMPRESSION: 1. Hepatic steatosis. 2. Punctate nonobstructing right renal calculus. 3. Diastases of rectus sheath. 4. Right parasagittal gluteal subdermal abscess measuring 3.4 x 5.6 x 6.0 cm, surrounded by subcutaneous fat inflammatory stranding, extending to midline posterior perianal region. No well defined fistula tract could be identified between the anal canal and the abscess. 5. Small left inguinal hernia containing mesenteric fat. 6. Sigmoid diverticulosis without evidence of diverticulitis. Fleischner guidelines were followed.
[2023-11-16 06:15] VITALS: BP 124/79; PULSE 95; RESP 20; TEMP 37; O2SAT 96; BMI 33.7
[2023-11-16 07:22] LABS: MANUAL DIFF FLAG NO
[2023-11-16] MEDS: Morphine Sulfate 10 MG/ML CARTRIDGE 6 MG IVPUSH (07:22)
--- NOTE | 2023-11-16 07:24 | ED_ITS ---
HPI - Skin/Abscess/Foreign Bdy General Chief complaint: Skin/Abscess/Foreign Body Stated complaint: abscess tailbone Time Seen by Provider: 11/16/23 06:40 Source: patient Limitations: no limitations History of Present Illness ED Provider: Yarelis Stewart PA-C HPI narrative: 38-year-old male with history of diabetes and morbid obesity presents with right buttock abscess x3 days. Patient states he has had abscesses in the past in other locations. Over the weekend, patient noted a tender spot on the right buttock. Since, it has increased in size, he has been applying warm compresses, however the lesion has not opened. Denies purulent drainage or bloody discharge from his rectum, no abdominal pain, denies fevers. Related Data Previous Rx's ?Medication ?Instructions ?Recorded doxycycline hyclate 100 mg tablet 100 mg PO BID #14 tabs 10/13/23 metformin 500 mg tablet 500 mg PO BID #14 tabs 10/13/23 prednisone 20 mg tablet See Rx Instructions .Route 10/13/23 .COMPLEX #18 tabs cephalexin 500 mg capsule 500 mg PO QID #28 caps 11/16/23 sulfamethoxazole 800 1 tab PO BID #14 tabs 11/16/23 mg-trimethoprim 160 mg tablet (Bactrim DS) Allergies Allergy/AdvReac Type Severity Reaction Status Date / Time cat dander [CAT] Allergy Mild FACIAL Verified 11/16/23 06:15 SWELLING WATERY EYES dog dander [DOG] Allergy Mild FACIAL Verified 11/16/23 06:15 SWELLING, WATERY EYES Review of Systems 2 Review of Systems: Yes all other systems are reviewed and are negative Constitutional: Constitutional: Denies fever(s) Cardiovascular: Cardiovascular: Denies chest pain and Denies dyspnea Respiratory: Respiratory: Denies dyspnea Gastrointestinal: Gastrointestinal: Denies abdominal pain Integumentary/Breasts: Skin/Breast: Denies rash and Reports sores PMFSH Past Medical History Attestation statement: The following information was validated with the patient. Medical History Cigarette smoker Hypertension Type 2 diabetes mellitus Social History Social History Household Members: Children Housing: House Do you presently have visiting nurse or other home services: No Alcohol intake: current Patient Tobacco Use Status: Current everyday Tobacco user Tobacco use type: Cigarette Cigarettes Per Day: 10 Years Smoked: 16 Second Hand Smoke Exposure: No Substance Use Type: Marijuana Advance Directives: No service: No Physical Exam 2 Vital Signs: Vital Signs: Last Vital Signs Temp 98.2 F 11/16/23 12:00 Pulse 91 11/16/23 12:00 Resp 18 11/16/23 12:00 BP 142/88 H 11/16/23 12:00 Pulse Ox 94 11/16/23 12:00 O2 Del Method Room Air 11/16/23 12:00 BMI result Body Mass Index 33.7 Const: Other: Alert well in appearance Orientation/consciousness: patient oriented x3 Resp: Other: Nonlabored respiration Cardio: Other: Normal peripheral perfusion GI: Other: Abdomen is soft, nondistended, obese no guarding, nontender. Tender fluctuant swelling noted over right buttock lateral to the buttock crease, with overlying erythema and warmth no active purulent drainage from the site Skin: Other: Warm, dry, no rash Neuro: General: patient oriented x3, no focal motor deficits and CN's II-XI intact bilaterally Psych: Other: Calm cooperative Course Course Course Narrative: 38-year-old male with history of diabetes and morbid obesity presents with right buttock abscess x3 days. Patient states he has had abscesses in the past in other locations. Over the weekend, patient noted a tender spot on the right buttock. Since, it has increased in size, he has been applying warm compresses, however the lesion has not opened. Denies purulent drainage or bloody discharge from his rectum, no abdominal pain, denies fevers. Problem: Obesity and diabetes History: Per patient I have considered the following differential diagnoses: Cellulitis, purulence cellulitis, abscess, cyst, perirectal abscess Plan: Patient requires incision and drainage, however I want to be sure that the abscess is not tracking deep into the buttock tissue, that would necessitate potential surgical intervention versus a bedside I and D. I am also concerned for potential perirectal abscess. We will be obtaining a CT scan, ordering screening labs. Given morphine for his pain. I have independently reviewed the following tests: Labs: Leukocytosis with left shift, not anemic, no electrolyte abnormality CT abdomen pelvis:cc: Juan Canales MD; Yarelis Stewart~ EXAMINATION: CT ABDOMEN AND PELVIS WITH CONTRAST CLINICAL INFORMATION: Right gluteal abscess, perirectal involvement. COMPARISON: None available. TECHNIQUE: Multidetector volumetric images were obtained from the superior aspect of the liver through the pubic symphysis following administration 85 mL of Omnipaque 350 intravenous contrast. Sagittal and coronal reformatted images were obtained on the technologist's workstation. Oral contrast: No This CT examination was performed using dose optimization techniques as appropriate, variously including the following: *Automated exposure control *Adjustment of mA and/or kV according to patient size (this includes techniques or standardized protocols for targeted exams where dose is matched to indication/reason for exam; i.e. extremities or head) *Use of iterative reconstruction technique DLP: 871 mGy-cm FINDINGS: LUNG BASES: Bilateral lung bases are clear. LIVER: No focal lesion is seen in the liver. The liver parenchyma shows relatively low density, with mean attenuation of 51 Hounsfield units in spite of intravenous contrast enhancement, compatible with hepatic steatosis. GALLBLADDER AND BILIARY TREE: Gallbladder appears unremarkable without calcified stones. Common bile duct is not dilated. SPLEEN: The spleen is normal in size without focal lesion. PANCREAS: The pancreas appears unremarkable. ADRENAL GLANDS: Adrenal glands are normal in size without focal lesion bilaterally. KIDNEYS: Bilateral kidneys are normal in size without focal lesion. A punctate calculus is seen in posterior mid right renal calyx without causing caliectasis. BOWELS: There is no abnormal dilatation of the large and small bowel loops. RETROPERITONEUM: No abnormally enlarged retroperitoneal lymph nodes, mass or hematoma could be seen. BLOOD VESSELS: Abdominal aorta is normal in size and smoothly patent. ABDOMINAL WALL: There is diastases of rectus sheath. No evidence of ventral hernia. PERITONEUM: There was no ascites. There were no abdominal peritoneal inflammatory changes seen. No free peritoneal air was seen. No abnormally enlarged mesenteric lymph nodes are found. BONES: No fracture or dislocation. No focal bone lesion diagnostic of metastatic disease could be seen in the lumbar region. EXAMINATION: CT pelvis. FINDINGS: SOFT TISSUE: At the level of coccygeal tip, a right parasagittal gluteal subdermal rim-enhancing abscess is seen measuring 3.4 cm in AP diameter, 5.6 cm in width, 6.0 cm in vertical height, surrounded by subcutaneous fat inflammatory stranding, extending to midline posterior perianal region. No well defined fistula tract could be identified between the anal canal and the abscess. URINARY BLADDER: Urinary bladder fills normally with urine. BOWELS: There is no abnormal dilatation of the large and small bowel loops. Normal air-filled appendix is seen projecting posterior and superior to the cecum. Diverticula are seen in proximal sigmoid colon without inflammatory changes. GENITAL ORGANS: Seminal vesicles are unremarkable. Prostate gland is normal. LYMPH NODES: No abnormally enlarged iliac or inguinal lymph nodes are seen. PERITONEUM: No inflammatory changes, ascites or free peritoneal air are found in the pelvis. Small left inguinal hernia containing mesenteric fat is present. BONES: No fracture or dislocation. No focal bone lesion diagnostic of metastatic disease could be seen in the pelvis. CT/CT abdomen pelvis w IV con IMPRESSION: 1. Hepatic steatosis. 2. Punctate nonobstructing right renal calculus. 3. Diastases of rectus sheath. 4. Right parasagittal gluteal subdermal abscess measuring 3.4 x 5.6 x 6.0 cm, surrounded by subcutaneous fat inflammatory stranding, extending to midline posterior perianal region. No well defined fistula tract could be identified between the anal canal and the abscess. 5. Small left inguinal hernia containing mesenteric fat. 6. Sigmoid diverticulosis without evidence of diverticulitis. Fleischner guidelines were followed. Will be patent surgical service for consult Consultations Consultation #1: Paging the surgical service for consult, Dr. Mosley ..... He recommends I can perform the I and D at bedside and the patient could follow up with him in the office in a week Time: 10:23 Medications Administered Discontinued Medications Generic Name Dose Route Start Last Admin Trade Name Freq PRN Reason Stop Dose Admin Iohexol 100 ml 11/16/23 08:31 11/16/23 08:32 Iohexol 350 Mg/Ml 100 Ml Infus..Btl IV 11/16/23 08:32 85 ml ONCE ONE Administration Morphine Sulfate 6 mg 11/16/23 06:58 11/16/23 07:22 Morphine Sulfate 10 Mg/Ml Cartridge IVPUSH 11/16/23 06:59 6 mg ONCE ONE Administration Protocol Medical Decision Making Lab Data 11/16/23 07:19 11/16/23 07:19 Labs: Lab Results 11/16/23 Range/Units 07:19 WBC 11.5 H (4.8-10.8) X10*3/uL RBC 5.07 (4.60-5.80) X10*6/uL Hgb 15.6 (14.0-18.0) g/dl Hct 43.6 (42.0-52.0) % MCV 86.0 (80.0-98.0) fL MCH 30.8 (27.0-33.0) pg MCHC 35.8 (31.0-36.0) g/dl RDW 11.5 (11.0-16.0) % Plt Count 190 (160-400) X10*3/uL MPV 11.4 (9.4-12.4) fL Immature Gran % (Auto) 0.5 H (0.0-0.4) % Neut % (Auto) 78.3 H (45-73) % Lymph % (Auto) 9.9 L (20-40) % [place] % (Auto) 10.0 (2-11) % Eos % (Auto) 1.0 (0-4) % Baso % (Auto) 0.3 (0-2) % Lymph # (Auto) 1.1 L (1.2-4.9) X10*3/uL [place] # (Auto) 1.2 (0.1-1.2) X10*3/uL Eos # (Auto) 0.1 (0.0-0.4) X10*3/uL Baso # (Auto) 0.0 (0.0-0.2) X10*3/uL Abs Immat Gran (auto) 0.06 H (0.00-0.03) X10*3/uL Absolute Neuts (auto) 9.0 H (2.0-8.3) x10*3/uL Absolute Nucleated RBC 0.000 (0.0-0.012) X10*3/uL Nucleated RBC % (auto) 0.0 (0.0-0.2) /100WBC Sodium 132 L (135-145) mmol/L Potassium 3.9 (3.3-5.1) mmol/L Chloride 97 (96-108) mmol/L Carbon Dioxide 26 (22-29) mmol/L Anion Gap 13 (12-20) BUN 12 (9-16) mg/dL Creatinine 0.91 (0.5-1.4) mg/dL Estim Creat Clear Calc 142.3 Estimated GFR > 60 Random Glucose 343 H (60-115) mg/dL Calcium 9.6 (8.4-10.2) mg/dL Total Bilirubin 1.1 H (0.0-1.0) mg/dL AST 14 (5-37) U/L ALT 24 (0-40) U/L Alkaline Phosphatase 66 (39-117) U/L Total Protein 7.3 (6.5-8.0) g/dL Albumin 4.0 (3.5-5.0) g/dL Procedures Abscess I/D Site: other (Right buttock) Side (if applicable): right Sedation/analgesia: none Local Anesthetic: lidocaine 1% Amount of anesthesia used (mL): 10 Technique: incised with blade Amount of fluid expressed (mL): 20 Sent for culture/gram staining?: Yes Irrigation: Yes Packing used?: plain (Gauze) Discharge Plan Discharge Clinical Impression: Abscess of skin or subcutaneous tissue Patient Disposition: Home, Self-Care Instructions: Abscess (ED) Additional Instructions: The CT scan revealed that the abscess was isolated to the right buttock. It was drained at bedside. There is packing within the wound, it can be removed within 3 days. Continue to apply warm compresses to the site. Take both the Bactrim and the cephalexin as directed. You need to follow up with Dr. Mosley in one week, I will provide you with his contact. You have a wound culture pending, this will determine the type of bacteria causing the infection. Prescriptions: New sulfamethoxazole-trimethoprim [Bactrim DS] 800-160 mg tablet 1 tab PO BID Qty: 14 0RF cephalexin 500 mg capsule 500 mg PO QID Qty: 28 0RF No Action doxycycline hyclate 100 mg tablet 100 mg PO BID Qty: 14 0RF prednisone 20 mg tablet See Rx Instructions .Route .COMPLEX Qty: 18 0RF Rx Instructions: 20 mg orally; 3 tabs daily for 3 days, 2 tabs daily for 3 days, 1 tab daily for 3 days metformin 500 mg tablet 500 mg PO BID Qty: 14 0RF Referrals: Prabhakar Mosley MD [Physician] - (Call today to make an appointment to be seen within a week.) Print Language: Maori
[2023-11-16 07:28] LABS: Basophils Percent Auto 0.3 % (0-2); Eosinophils Absolute Auto 0.1 X10*3/uL (0.0-0.4); Hematocrit 43.6 % (42.0-52.0); Hemoglobin 15.6 g/dl (14.0-18.0); Imm Gran Abs Auto 0.06 X10*3/uL (0.00-0.03); Imm Gran Pct Auto 0.5 % (0.0-0.4); Lymphocytes Absolute Auto 1.1 X10*3/uL (1.2-4.9); Lymphocytes Percent Auto 9.9 % (20-40); Mean Corpuscular HGB Conc 35.8 g/dl (31.0-36.0); Mean Corpuscular Hemoglobin 30.8 pg (27.0-33.0); Mean Platelet Volume 11.4 fL (9.4-12.4); Monocytes Absolute Auto 1.2 X10*3/uL (0.1-1.2); Neutrophils Percent Auto 78.3 % (45-73); Platelet Count 190 X10*3/uL (160-400); Red Blood Count 5.07 X10*6/uL (4.60-5.80); Red Cell Distribution Width 11.5 % (11.0-16.0); White Blood Count 11.5 X10*3/uL (4.8-10.8)
[2023-11-16 07:42] LABS: Alanine Aminotransferase 24 U/L (0-40); Alkaline Phosphatase 66 U/L (39-117); Anion Gap 13 (12-20); Aspartate Amino Transferase 14 U/L (5-37); Bilirubin Total 1.1 mg/dL (0.0-1.0); Blood Urea Nitrogen 12 mg/dL (9-16); Calcium 9.6 mg/dL (8.4-10.2); Carbon Dioxide 26 mmol/L (22-29); Chloride 97 mmol/L (96-108); Creatinine Clr Calc Pharmacy 142.3; Estimated Glomerular Filt Rate > 60; Glucose Random 343 mg/dL (60-115); Potassium 3.9 mmol/L (3.3-5.1); Sodium 132 mmol/L (135-145); Total Protein 7.3 g/dL (6.5-8.0)
[2023-11-16] MEDS: iohexoL 350 MG/ML 100 ML INFUS..BTL IV (08:32)
[2023-11-16 10:07] VITALS: BP 131/86; PULSE 86; RESP 20; TEMP 36.3; O2SAT 95
--- NOTE | 2023-11-16 11:36 | PC.NURSE ---
Patient noted that abscess has begun to drain, moderate amount of green/blood tinged drainage noted on bed sheet. Patient given warm wipes to clean up additional drainage. Patient states he feels much less pressure, is able to walk independently to bathroom.
[2023-11-16 12:00] VITALS: BP 142/88; PULSE 91; RESP 18; TEMP 36.8; O2SAT 94
[2023-11-16] MEDS: Sulfamethox/Trimeth 800/160 TABLET 1 TAB PO (13:15)
[2023-11-16] MEDS: cephALEXin 500 MG CAPSULE PO (13:15)
[2023-11-16 13:21] VITALS: BP 142/88; PULSE 91; RESP 18; TEMP 36.8; O2SAT 94
== END 2023-11-16 13:21 | disposition home or self-care (01) ==
PROVIDERS: Physician Assistant Medical; Emergency Provider Emergency Medicine; PCP Family Medicine
DX: L02.31 Cutaneous abscess of buttock (principal); F17.210 Nicotine dependence, cigarettes, uncomplicated
CPT/HCPCS: 10060; 36415; 74177; 80053; 85025; 87070; 87077; 87186; 87205; 96374; 99284; J2270; Q9967

== ENCOUNTER 2023-12-15 06:26 | Emergency (ER) | payer OTHER, SELFPAY ==
[2023-12-15 06:32] VITALS: BP 137/94; PULSE 92; RESP 18; TEMP 36.6; O2SAT 95; BMI 33.2
--- NOTE | 2023-12-15 07:23 | ED_ITS ---
HPI - Back Pain/Injury General Chief Complaint: Back Pain/Injury Stated Complaint: lower back pain Time Seen by Provider: 12/15/23 07:03 Source: patient Mode of arrival: ambulatory Limitations: no limitations History of Present Illness ED Provider: Dr. Beny Servin HPI Narrative: 38-year-old male diabetes mellitus not on any medications who presents emergency department for evaluation of lower back pain since , 12/09/2023 (6 days prior) that occurred while he was walking at work. 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 He states that the pain became more severe over the last 24 hours. He did not take any medications for the pain. He points to his lower back when asked to localize the pain. States the pain is a constant, pain which is worse with movement. He also states the pain is worse if he moves his neck. He denies any pain radiating down his legs, numbness, weakness of his extremities or loss of bowel or bladder control. He denied systemic symptoms such as fever and chills. Patient states that his gave him a massage yesterday and noted a lesion to his left lower back. He states he has had history of skin abscesses and skin infections in the past. He denies injection drug use. He denies headache. Patient states he does have history diabetes mellitus but does not take any medications since he did not have insurance until recently. Related Data Previous Rx's ?Medication ?Instructions ?Recorded doxycycline hyclate 100 mg tablet 100 mg PO BID #14 tabs 10/13/23 metformin 500 mg tablet 500 mg PO BID #14 tabs 10/13/23 prednisone 20 mg tablet See Rx Instructions .Route 10/13/23 .COMPLEX #18 tabs cephalexin 500 mg capsule 500 mg PO QID #28 caps 11/16/23 sulfamethoxazole 800 1 tab PO BID #14 tabs 11/16/23 mg-trimethoprim 160 mg tablet (Bactrim DS) cyclobenzaprine 10 mg tablet 10 mg PO TID PRN pain, muscle 12/15/23 spasm #15 tabs metformin 500 mg tablet 500 mg PO BID 90 days #180 tabs 12/15/23 morphine 15 mg immediate release 15 mg PO Q6H PRN pain #14 tabs 12/15/23 tablet valacyclovir 1 gram tablet 1,000 mg PO Q8H 7 days #21 tabs 12/15/23 (Valtrex) Allergies Allergy/AdvReac Type Severity Reaction Status Date / Time cat dander [CAT] Allergy Mild FACIAL Verified 12/15/23 06:33 SWELLING WATERY EYES dog dander [DOG] Allergy Mild FACIAL Verified 12/15/23 06:33 SWELLING, WATERY EYES Review of Systems 2 Review of Systems: Yes all other systems are reviewed and are negative COUNTS INCLUDE 234 BEDS AT THE [facility] Past Medical History COUNTS INCLUDE 234 BEDS AT THE [facility] Narrative: Social history: Patient does smoke cigarettes. He denies alcohol use. He denies injection drug use. He does smoke marijuana. Medical History Cigarette smoker Hypertension Type 2 diabetes mellitus Social History Social History Household Members: Children Housing: House Do you presently have visiting nurse or other home services: No Alcohol intake: current Patient Tobacco Use Status: Current everyday Tobacco user Tobacco use type: Cigarette Cigarettes Per Day: 10 Years Smoked: 16 Smoked in Last 30 Days: Yes Second Hand Smoke Exposure: No Use of substances other than those prescribed or required for medical reasons: Yes Substance Use Type: Marijuana Substance Use Frequency: Daily Advance Directives: No service: No Physical Exam 2 Vital Signs: Vital Signs: Last Vital Signs Temp 97.7 F 12/15/23 08:09 Pulse 74 12/15/23 10:20 Resp 12 12/15/23 10:20 BP 133/86 12/15/23 10:20 Pulse Ox 96 12/15/23 10:20 O2 Del Method Nasal Cannula 12/15/23 10:20 O2 Flow Rate 1 12/15/23 10:20 BMI result Body Mass Index 33.2 Vital signs were normal. Exam: General: Awake, alert patient appears to be in distress secondary to his lower back pain which is exacerbated by any movement Head: Normocephalic, atraumatic EENT: PERRL, Lids normal, sclera normal, conjunctiva normal, nose normal , ears normal, throat without erythema or exudates Neck: Supple, no nuchal rigidity, patient does have exacerbation of his lower back pain with movement of his neck Lung: breath sounds symmetric, no wheezing, rales or rhonchi Chest: symmetric movement, nontender Heart: regular rate and rhythm, normal S1, S2 no murmurs or rubs Abdomen: soft, non-tender, nondistended, normal bowel sounds Back: Patient has tenderness palpation of his lower lumbar back muscles with spasm of these muscles, there is a skin lesion with an abrasion over his lower back, the lesion in his left of the midline but I do not see any other lesions on his back or abdomen in a dermal pattern, he has negative straight leg raises bilaterally and lifting his legs does not exacerbate his neck pain Extremities: no deformities, moves all extremities symmetrically Neuro: Awake, alert, oriented, normal speech, cranial nerves intact, moves all extremities symmetrically Psych: Pleasant, cooperative Medications Administered Discontinued Medications Generic Name Dose Route Start Last Admin Trade Name Nikita PRN Reason Stop Dose Admin Ketorolac Tromethamine 15 mg 12/15/23 07:23 12/15/23 07:56 Ketorolac Tromethamine 15 Mg/Ml Vial IVPUSH 12/15/23 07:24 15 mg ONCE STA Administration Morphine Sulfate 4 mg 12/15/23 07:23 12/15/23 07:56 Morphine Sulfate 4 Mg/Ml Cartridge IVPUSH 12/15/23 07:24 4 mg ONCE STA Administration Protocol Ondansetron HCl 4 mg 12/15/23 07:23 12/15/23 07:57 Ondansetron Hcl 4 Mg/2 Ml Vial IVPUSH 12/15/23 07:24 4 mg ONCE ONE Administration Medical Decision Making Medical Decision Making MDM Narrative: 38-year-old male diabetes mellitus not on any medications who presents emergency department for evaluation of lower back pain since , 12/09/2023 (6 days prior) that occurred while he was walking at work. He states that the pain became more severe over the last 24 hours, 11/26, worse with movement of his lower back and neck, no associated systemic symptoms, no radiculopathy to his legs or weakness of the lower extremities, no loss of bowel or bladder control. Patient's did notice a skin lesion to his left lower back yesterday. Patient was diabetes but does not take any medications or check his glucose. Vital signs were normal. Physical examination did reveal pain with palpation of the lower lumbar muscles bilaterally with spasm of these muscles, has negative straight leg raises bilaterally does have exacerbation of his lower back pain with raising his neck but no exacerbation of his neck pain with raising his legs. He does have a skin lesion to his left lower back with no other lesions on his lower back or abdomen at this time. Differential diagnosis: ?Includes but is not limited to degenerative disc disease, degenerative joint disease, lumbar musculoskeletal injury, sciatica, herpes zoster, paraspinal abscess, electrolyte abnormalities, anemia, elevated glucose Following evaluation was ordered: CBC, CMP, lactic acid, magnesium, CRP, ESR, tick-borne illness panel, lipase, PTT, urinalysis, blood cultures x2 Patient was initially treated with the following: Toradol 15 mg IV, morphine 4 mg IV, Zofran 4 mg IV Course: 10:55 The patient's laboratory evaluation was unremarkable including a normal white blood cell count, normal ESR and CRP. At this time I do not think that the patient has meningitis or encephalitis as the cause of his back pain. He most likely has musculoskeletal strain however given the lesion on his left lower back I am also going to treat him for possible shingles/herpes zoster. Patient's pain did improve slightly with the 1st dose of morphine he was given a 2nd dose of morphine 4 mg IV. I also ordered metformin 500 mg orally for his diabetes. The patient states that he was on this medication but did not have a PCP and could not get a refill. The patient will be discharged home and advised to take Tylenol ibuprofen for pain and for pain not relieved by these meds as prescribed morphine 15 mg every 6 hours as needed he was also given prescription for Flexeril. He was given printed and verbal instructions discharged home. He was also given a work Admission/Observation Consideration of admission/observation: Escalation of care including admission/observation considered Lab Data MDM Lab Attestation statement: I reviewed the patient's lab results. My independent interpretation patient's laboratory evaluation is as follows: WBC was normal 6700 with a normal differential of 68 neutrophils and 18 lymphocytes. Glucose elevated 327. BUN elevated 17. ALT elevated 46. Lipase was normal. CRP was normal. ESR is normal. 12/15/23 07:43 12/15/23 07:43 Labs: Lab Results 12/15/23 12/15/23 12/15/23 Range/Units 07:42 07:43 09:43 WBC 6.7 (4.8-10.8) X10*3/uL RBC 5.60 (4.60-5.80) X10*6/uL Hgb 17.4 (14.0-18.0) g/dl Hct 47.8 (42.0-52.0) % MCV 85.4 (80.0-98.0) fL MCH 31.1 (27.0-33.0) pg MCHC 36.4 H (31.0-36.0) g/dl RDW 11.7 (11.0-16.0) % Plt Count 177 (160-400) X10*3/uL MPV 11.4 (9.4-12.4) fL Immature Gran % (Auto) 0.6 H (0.0-0.4) % Neut % (Auto) 68.9 (45-73) % Lymph % (Auto) 18.6 L (20-40) % [place]isco[place] % (Auto) 7.1 (2-11) % Eos % (Auto) 4.2 H (0-4) % Baso % (Auto) 0.6 (0-2) % Lymph # (Auto) 1.3 (1.2-4.9) X10*3/uL [place] # (Auto) 0.5 (0.1-1.2) X10*3/uL Eos # (Auto) 0.3 (0.0-0.4) X10*3/uL Baso # (Auto) 0.0 (0.0-0.2) X10*3/uL Abs Immat Gran (auto) 0.04 H (0.00-0.03) X10*3/uL Absolute Neuts (auto) 4.6 (2.0-8.3) x10*3/uL Absolute Nucleated RBC 0.000 (0.0-0.012) X10*3/uL Nucleated RBC % (auto) 0.0 (0.0-0.2) /100WBC ESR 3 (0-15) MM/HR APTT 33.1 (26.0-36.8) SEC Sodium 136 (135-145) mmol/L Potassium 4.4 (3.3-5.1) mmol/L Chloride 101 (96-108) mmol/L Carbon Dioxide 25 (22-29) mmol/L Anion Gap 14 (12-20) BUN 17 H (9-16) mg/dL Creatinine 0.94 (0.5-1.4) mg/dL Estim Creat Clear Calc 139.8 Estimated GFR > 60 Random Glucose 327 H (60-115) mg/dL Lactic Acid 1.0 (0.5-2.0) mmol/L Calcium 9.9 (8.4-10.2) mg/dL Magnesium 1.7 (1.6-2.6) mg/dL Total Bilirubin 1.0 (0.0-1.0) mg/dL AST 23 (5-37) U/L ALT 46 H (0-40) U/L Alkaline Phosphatase 70 (39-117) U/L Total Creatine Kinase 159 (38-174) U/L C-Reactive Protein 0.19 (< or = 0.50) mg/dL Total Protein 7.8 (6.5-8.0) g/dL Albumin 4.5 (3.5-5.0) g/dL Lipase 29 (8-78) U/L Urine Color Yellow Urine Appearance Clear Urine pH 5.5 (5.0-9.0) Ur Specific New Site >= 1.030 H (1.005-1.025) Urine Protein Trace (Neg-Trace) mg/dL Urine Glucose (UA) >=1000 H (Negative) mg/dL Urine Ketones Trace (Negative) mg/dL Urine Blood Negative (Negative) Urine Nitrite Negative (Negative) Ur Leukocyte Esterase Negative (Negative) Urine RBC 0-2 (0-2) /HPF Urine WBC 0-5 (0-5) /HPF Ur Squamous Epith Cells 0-2 (0-2) /HPF Urine Bacteria None Seen (None Seen) Hyaline Casts 0-2 (0-2) /LPF Urine Opiates Screen POSITIVE H (Not Detect) Ur Buprenorphine Scrn Not Detected (Not Detect) ng/mL Ur Oxycodone Screen Not Detected (Not Detect) ng/mL Urine Methadone Screen Not Detected (Not Detect) ng/mL Urine Fentanyl Screen Not Detected (Not Detect) Ur Barbiturates Screen Not Detected (Not Detect) Ur Phencyclidine Scrn Not Detected (Not Detect) Ur Amphetamines Screen Not Detected (Not Detect) U Benzodiazepines Scrn POSITIVE H (Not Detect) Urine Cocaine Screen Not Detected (Not Detect) U Marijuana (THC) Screen POSITIVE H (Not Detect) Prescription Management I considered prescription management with: Pain Medication, Antiviral and Other (Antihyperglycemic medication-metformin) Chronic Conditions Patient?s care impacted by: Diabetes Discharge Plan Discharge Clinical Impression: Lumbar back sprain, Herpes zoster, Uncontrolled diabetes mellitus with hyperglycemia Patient Disposition: Home, Self-Care Instructions: Shingles (ED), Acute Low Back Pain (ED) Additional Instructions: Your blood work was unremarkable including a normal white blood cell count and normal inflammatory markers (CRP and ESR). Your lower back pain is most likely caused by sprain/strain of your muscles. Take ibuprofen 200 mg pills, 2 pills every 6 hours as needed for pain. Take Tylenol (acetaminophen) 2 pills every 6 hours as needed for pain. For pain not relieved by ibuprofen or Tylenol take morphine 15 mg pills, 1 pill every 6 hours as needed for pain. This medication will make you sleepy, do not drive or work while taking this medication. Morphine is a narcotic medication and can be addicting. If you are concerned about addiction you can ask the pharmacist for less pills or do not get this prescription filled. Take Flexeril (cyclobenzaprine) 10 mg pills, 1 pill every 6-8 hours as needed for pain or spasm. ?This medication will make you sleepy. ?Do not drive or work while taking this medication. I am concerned however that you may have shingles as the cause of your pain therefore I am treating you with valacyclovir a 1000 mg every 8 hours for 7 days I am also restarting your metformin 500 mg every 12 hours and I am giving you a three-month supply. It is very important that you get a primary care provider to help manage her diabetes Insert discharge follow-up Prescriptions: New cyclobenzaprine 10 mg tablet 10 mg PO TID PRN (Reason: pain, muscle spasm) Qty: 15 0RF morphine 15 mg tablet 15 mg PO Q6H PRN (Reason: pain) Qty: 14 0RF Rx Instructions: Patient may request partial fill; Partial Fill upon patient request. metformin 500 mg tablet 500 mg PO BID 90 Days Qty: 180 0RF valacyclovir [Valtrex] 1 gram tablet 1,000 mg PO Q8H 7 Days Qty: 21 0RF No Action doxycycline hyclate 100 mg tablet 100 mg PO BID Qty: 14 0RF prednisone 20 mg tablet See Rx Instructions .Route .COMPLEX Qty: 18 0RF Rx Instructions: 20 mg orally; 3 tabs daily for 3 days, 2 tabs daily for 3 days, 1 tab daily for 3 days metformin 500 mg tablet 500 mg PO BID Qty: 14 0RF sulfamethoxazole-trimethoprim [Bactrim DS] 800-160 mg tablet 1 tab PO BID Qty: 14 0RF cephalexin 500 mg capsule 500 mg PO QID Qty: 28 0RF Print Language: Yi
[2023-12-15 07:32] VITALS: BP 142/91; PULSE 77; RESP 15; TEMP 36.6; O2SAT 96
--- NOTE | 2023-12-15 07:32 | PC.NURSE ---
Pt. on hall monitor at this time.
[2023-12-15 07:49] LABS: MANUAL DIFF FLAG NO
--- NOTE | 2023-12-15 07:51 | PC.NURSE ---
20G to RAC. Tolerated well. Good blood return.
--- NOTE | 2023-12-15 07:51 | PC.NURSE ---
Labs and blood cultures drawn as ordered.
[2023-12-15] MEDS: Morphine Sulfate 4 MG/ML CARTRIDGE IVPUSH ×2 (07:56→11:17)
[2023-12-15] MEDS: Ketorolac Tromethamine 15 MG/ML VIAL IVPUSH (07:56)
[2023-12-15] MEDS: ondansetron HCL 4 MG/2 ML VIAL IVPUSH (07:57)
[2023-12-15 07:59] LABS: Partial Thromboplastin Time 33.1 SEC (26.0-36.8)
[2023-12-15 08:00] LABS: Basophils Percent Auto 0.6 % (0-2); Eosinophils Absolute Auto 0.3 X10*3/uL (0.0-0.4); Eosinophils Percent Auto 4.2 % (0-4); Hematocrit 47.8 % (42.0-52.0); Hemoglobin 17.4 g/dl (14.0-18.0); Imm Gran Abs Auto 0.04 X10*3/uL (0.00-0.03); Imm Gran Pct Auto 0.6 % (0.0-0.4); Lymphocytes Absolute Auto 1.3 X10*3/uL (1.2-4.9); Lymphocytes Percent Auto 18.6 % (20-40); Mean Corpuscular HGB Conc 36.4 g/dl (31.0-36.0); Mean Corpuscular Hemoglobin 31.1 pg (27.0-33.0); Mean Corpuscular Volume 85.4 fL (80.0-98.0); Mean Platelet Volume 11.4 fL (9.4-12.4); Monocytes Absolute Auto 0.5 X10*3/uL (0.1-1.2); Monocytes Percent Auto 7.1 % (2-11); Neutrophils Absolute Auto 4.6 x10*3/uL (2.0-8.3); Neutrophils Percent Auto 68.9 % (45-73); Platelet Count 177 X10*3/uL (160-400); Red Cell Distribution Width 11.7 % (11.0-16.0); White Blood Count 6.7 X10*3/uL (4.8-10.8)
[2023-12-15 08:04] LABS: Alanine Aminotransferase 46 U/L (0-40); Albumin Level 4.5 g/dL (3.5-5.0); Alkaline Phosphatase 70 U/L (39-117); Anion Gap 14 (12-20); Aspartate Amino Transferase 23 U/L (5-37); Blood Urea Nitrogen 17 mg/dL (9-16); C Reactive Protein 0.19 mg/dL (< or = 0.50); Calcium 9.9 mg/dL (8.4-10.2); Carbon Dioxide 25 mmol/L (22-29); Chloride 101 mmol/L (96-108); Creatinine Clr Calc Pharmacy 139.8; Estimated Glomerular Filt Rate > 60; Glucose Random 327 mg/dL (60-115); Lipase 29 U/L (8-78); Magnesium 1.7 mg/dL (1.6-2.6); Potassium 4.4 mmol/L (3.3-5.1); Sodium 136 mmol/L (135-145); Total Protein 7.8 g/dL (6.5-8.0)
[2023-12-15 08:09] VITALS: BP 135/88; PULSE 79; RESP 19; TEMP 36.5; O2SAT 94
[2023-12-15 09:28] LABS: Erythrocyte Sedimentation Rate 3 MM/HR (0-15)
[2023-12-15 09:53] LABS: Appearance Urine Clear; Color Urine Yellow; Glucose Urine UA >=1000 mg/dL (Negative); Leukocyte Esterase Urine Negative (Negative); Nitrite Urine Negative (Negative); PH 5.5 (5.0-9.0); Specific Gravity - Urine >= 1.030 (1.005-1.025); UMIC TRIGGER UACC YES; Urine Blood Negative (Negative); Urine Ketones Trace mg/dL (Negative); Urine Protein Trace mg/dL (Neg-Trace)
[2023-12-15 09:56] LABS: Bacteria Urine None Seen (None Seen); Hyaline Casts Urine 0-2 /LPF (0-2); RBC Urine 0-2 /HPF (0-2); Squamous Epithelial Cell Urine 0-2 /HPF (0-2); WBC Urine 0-5 /HPF (0-5)
[2023-12-15 10:02] LABS: Amphetamine Screen Urine Not Detected (Not Detect); Barbiturates, Urine Not Detected (Not Detect); Benzodiazepines Screen Urine POSITIVE (Not Detect); Buprenorphine Scr Not Detected (Not Detect); Cannabinoid Screen Urine POSITIVE (Not Detect); Cocaine Screen Urine Not Detected (Not Detect); Fentanyl, urine Not Detected (Not Detect); Methadone Screen, Urine Not Detected (Not Detect); Opiate Screen Urine POSITIVE (Not Detect); Oxycodone Screen Urine Not Detected (Not Detect); Phencyclidine Screen Urine Not Detected (Not Detect)
[2023-12-15 10:20] VITALS: BP 133/86; PULSE 74; RESP 12; O2SAT 96
[2023-12-15] MEDS: valACYclovir HCL 1,000 MG TABLET 1000 MG PO (11:16)
[2023-12-15] MEDS: metFORMIN HCl 500 MG TABLET PO (11:16)
[2023-12-15] MEDS: Cyclobenzaprine HCl 10 MG TABLET PO (11:16)
[2023-12-15 11:17] VITALS: RESP 16
[2023-12-15 11:41] VITALS: BP 133/83; PULSE 78; RESP 18; TEMP 36.5; O2SAT 96
--- NOTE | 2023-12-15 11:42 | PC.NURSE ---
Patient arranged for a safe ride home.
[2023-12-17 06:03] LABS: A. Phagocytphilium DNA,RT-PCR NOT DETECTED (NOT DETECTED); Babesia Microti DNA, RT-PCR NOT DETECTED (NOT DETECTED); Borrelia Miyamotoi,DNA RT-PCR NOT DETECTED (NOT DETECTED); E.Chaffeensis DNA RT-PCR NOT DETECTED (NOT DETECTED); Lyme(Borrelia ssp)DNA RT-PCR NOT DETECTED (NOT DETECTED)
== END 2023-12-15 11:43 | disposition home or self-care (01) ==
PROVIDERS: Emergency Provider Emergency Medicine Emergency Medical Services; PCP Family Medicine
DX: S33.5XXA Sprain of ligaments of lumbar spine, initial encounter (principal); X58.XXXA Exposure to other specified factors, initial encounter; B02.9 Zoster without complications; E11.65 Type 2 diabetes mellitus with hyperglycemia; I10 Essential (primary) hypertension; F17.210 Nicotine dependence, cigarettes, uncomplicated; Y93.9 Activity, unspecified; Y92.9 Unspecified place or not applicable; Y99.9 Unspecified external cause status; Z79.84 Long term (current) use of oral hypoglycemic drugs; Z79.899 Other long term (current) drug therapy
CPT/HCPCS: 36415; 80053; 80307; 81001; 82550; 83605; 83690; 83735; 85025; 85652; 85730; 86140; 87040; 87468; 87469; 87478; 87484; 87798; 96374; 96375; 96376; 99284; J1885; J2270; J2405

== ENCOUNTER 2023-12-18 18:15 | Inpatient (IN) | payer OTHER, SELFPAY ==
--- NOTE | ~2023-12-18 | CT_ITS ---
EXAMINATION: CT PELVIS WITH CONTRAST CLINICAL INFORMATION: Scrotal abscess COMPARISON: None available. TECHNIQUE: Helical scanning was performed with submillimeter collimation through the pelvis with the use of oral contrast and during bolus intravenous injection of 85 mL of Omnipaque 350 intravenous contrast. Sagittal and coronal multiplanar 2-D reconstructions were obtained. This CT examination was performed using dose optimization techniques as appropriate, variously including the following: *Automated exposure control *Adjustment of mA and/or kV according to patient size (this includes techniques or standardized protocols for targeted exams where dose is matched to indication/reason for exam; i.e. extremities or head) *Use of iterative reconstruction technique DLP: 530 mGy-cm FINDINGS: PELVIS: There is no pelvic mass. REPRODUCTIVE: Prostate normal in size. Significant scrotal thickening, right greater than left. Inflammatory changes within the canal, right greater than left. No drainable fluid collection. Distended testes. OSSEOUS STRUCTURES: No acute fracture or focal osseous lesion. CT/CT pelvis w IV con IMPRESSION: Scrotal thickening without drainable abscess. Recommend further evaluation with scrotal ultrasound Electronically signed by: Tylor Gillespie DO 12/18/2023 10:55 PM EDT
--- NOTE | ~2023-12-18 | US_ITS ---
EXAMINATION: US SCROTUM CLINICAL INFORMATION: Right-sided swelling with pain. Assess for abscess. COMPARISON: Selected images CT pelvis 12/18/2023 TECHNIQUE: A sonogram of the scrotum was performed assessing man-scale appearance and color Doppler flow. Spectral Doppler analysis of the arterial and venous flow were performed in the testes bilaterally. FINDINGS: RIGHT: Right testicle measures 4.3 x 1.9 x 2.8 cm, volume 11.8 mL. No focal testicular parenchymal lesions are visualized. Spectral Doppler analysis of the arterial and venous flow is normal in the right testis. Right epididymal head is now well visualized. No right hydrocele or varicocele is seen. In the lateral right scrotum in the area of pain, no abnormal fluid collection is seen but prominent edema and increased color Doppler flow is present in the soft tissues. LEFT: Left testicle measures 4.9 x 2.0 x 3.1 cm, volume 16.3 mL. No focal testicular parenchymal lesions are visualized. Spectral Doppler analysis of the arterial and venous flow is normal in the left testis. Left epididymal head is normal in size. No left hydrocele or varicocele is seen. Left epididymal Doppler flow is normal. US/US scrotum doppler IMPRESSION: Normal testes. Prominent edema is seen in the soft tissues of the right lateral scrotum. No discrete abscess collection is seen. Electronically signed by: Jose Luis Rehman MD 12/18/2023 09:04 PM EDT
--- NOTE | ~2023-12-18 | US_ITS ---
EXAMINATION: US SCROTUM CLINICAL INFORMATION: Right-sided swelling with pain. Assess for abscess. COMPARISON: Selected images CT pelvis 12/18/2023 TECHNIQUE: A sonogram of the scrotum was performed assessing man-scale appearance and color Doppler flow. Spectral Doppler analysis of the arterial and venous flow were performed in the testes bilaterally. FINDINGS: RIGHT: Right testicle measures 4.3 x 1.9 x 2.8 cm, volume 11.8 mL. No focal testicular parenchymal lesions are visualized. Spectral Doppler analysis of the arterial and venous flow is normal in the right testis. Right epididymal head is now well visualized. No right hydrocele or varicocele is seen. In the lateral right scrotum in the area of pain, no abnormal fluid collection is seen but prominent edema and increased color Doppler flow is present in the soft tissues. LEFT: Left testicle measures 4.9 x 2.0 x 3.1 cm, volume 16.3 mL. No focal testicular parenchymal lesions are visualized. Spectral Doppler analysis of the arterial and venous flow is normal in the left testis. Left epididymal head is normal in size. No left hydrocele or varicocele is seen. Left epididymal Doppler flow is normal. US/US scrotum IMPRESSION: Normal testes. Prominent edema is seen in the soft tissues of the right lateral scrotum. No discrete abscess collection is seen. Electronically signed by: Jose Luis Rehman MD 12/18/2023 09:04 PM EDT
[2023-12-18 18:28] VITALS: BP 141/97; PULSE 116; RESP 18; TEMP 37.4; O2SAT 94; BMI 33.2
--- NOTE | 2023-12-18 18:28 | ED_ITS ---
HPI - Skin/Abscess/Foreign Bdy General Chief complaint: Skin/Abscess/Foreign Body Stated complaint: groin abscess Time Seen by Provider: 12/18/23 19:26 Source: patient, RN notes reviewed and old records reviewed Mode of arrival: ambulatory Limitations: no limitations History of Present Illness ED Provider: Sanjuana HPI narrative: 38-year-old male past medical history significant for xum-bvrndzt-pyygtusib diabetes presents for evaluation of scrotal pain. He reports that he 1st noticed pain yesterday. He reports that he feels like he has an abscess to his right scrotum. He reports that his pain radiates into his right leg and up towards his buttocks. He denies any fevers but does endorse chills and states he has felt cold for about the last 4 hours Patient states that he has had abscesses in the past but never on his scrotum He denies any injury or trauma to the scrotum Denies any difficulty urinating Related Data Previous Rx's ?Medication ?Instructions ?Recorded doxycycline hyclate 100 mg tablet 100 mg PO BID #14 tabs 10/13/23 metformin 500 mg tablet 500 mg PO BID #14 tabs 10/13/23 prednisone 20 mg tablet See Rx Instructions .Route 10/13/23 .COMPLEX #18 tabs cephalexin 500 mg capsule 500 mg PO QID #28 caps 11/16/23 sulfamethoxazole 800 1 tab PO BID #14 tabs 11/16/23 mg-trimethoprim 160 mg tablet (Bactrim DS) cyclobenzaprine 10 mg tablet 10 mg PO TID PRN pain, muscle 12/15/23 spasm #15 tabs metformin 500 mg tablet 500 mg PO BID 90 days #180 tabs 12/15/23 morphine 15 mg immediate release 15 mg PO Q6H PRN pain #14 tabs 12/15/23 tablet valacyclovir 1 gram tablet 1,000 mg PO Q8H 7 days #21 tabs 12/15/23 (Valtrex) Allergies Allergy/AdvReac Type Severity Reaction Status Date / Time cat dander [CAT] Allergy Mild FACIAL Verified 12/18/23 18:29 SWELLING WATERY EYES dog dander [DOG] Allergy Mild FACIAL Verified 12/18/23 18:29 SWELLING, WATERY EYES Review of Systems 2 Constitutional: Constitutional: Denies body ache(s), Reports chills and Denies fever(s) Eyes: Eyes: Denies blurry vision ENT: Denies vertigo, Denies dizziness and Denies sore throat Cardiovascular: Cardiovascular: Denies chest pain and Denies dyspnea Respiratory: Respiratory: Denies cough and Denies dyspnea Gastrointestinal: Gastrointestinal: Denies abdominal pain, Denies nausea and Denies vomiting Genitourinary: Genitourinary: Reports scrotal swelling Musculoskeletal: Musculoskeletal: Denies back pain Integumentary/Breasts: Skin/Breast: Reports erythema, Reports rash, Reports skin swelling and Reports skin ulcer Neurologic: Denies vertigo and Denies dizziness [facility] Past Medical History Medical History Cigarette smoker Hypertension Type 2 diabetes mellitus Social History Social History Household Members: Children Housing: House Do you presently have visiting nurse or other home services: No Alcohol intake: current Patient Tobacco Use Status: Current everyday Tobacco user Tobacco use type: Cigarette Cigarettes Per Day: 10 Years Smoked: 16 Second Hand Smoke Exposure: No Substance Use Type: Marijuana Advance Directives: No Advance Directives Information Provided: No Do you have a plan to hurt others: No Plan service: No Physical Exam 2 Vital Signs: Vital Signs: Last Vital Signs Temp 98.3 F 12/18/23 22:34 Pulse 101 H 12/18/23 22:34 Resp 20 12/18/23 22:34 BP 127/73 12/18/23 22:34 Pulse Ox 96 12/18/23 22:34 O2 Del Method Room Air 12/18/23 22:34 BMI result Body Mass Index 33.2 Const: General: healthy appearing, comfortable, alert and awake Nutritional Appearance: well nourished Orientation/consciousness: patient oriented x3 HEENT: Head: Yes normocephalic and Yes atraumatic Eyes: Eyelids: Yes eyelids normal Conjunctivae: conjunctivae normal S clerae: sclerae normal Corneas: corneas normal Pupils: Equal, round and reactive pupils present EOM: EOMs intact bilaterally Neck: Neck: Yes full ROM Resp: Effort & Inspection: normal respiratory effort, able to speak in complete sentences and not labored GI: Inspection: No distended Palpation (GI): Soft to palpation, not firm, nontender, no guarding and not rigid Skin: Other: Patient's scrotum is diffusely erythematous and edematous, right greater than left. There is a large area of induration with exquisite tenderness to the right hemiscrotum. The patient does have some psoriatic skin changes to the right upper thigh which does not appear to be active cellulitis but difficult to assess as it is adjacent to the scrotal cellulitis. General skin exam: elasticity normal Neuro: General: patient oriented x3 Cranial nerves: Yes Equal, round and reactive pupils present and Yes Bilaterally intact EOM present Cognition (Neuro): normal cognition Course Course Course Narrative: This is an RME performed by Ivonne Rapp CNP: Additional HPI, ROS, PE not included below will be deferred to primary provider. Patient is a 38-year-old male who presents to the emergency department for evaluation of a right groin abscess with onset yesterday. Reports a history of similar in the past requiring incision and drainage. Endorses chills today. Reporting associated swelling of the right testicle and significant pain. Mi of wish with sudden onset Medications Administered Discontinued Medications Generic Name Dose Route Start Last Admin Trade Name Freq PRN Reason Stop Dose Admin Sodium Chloride 1,000 mls @ 999 mls/hr 12/18/23 20:00 12/18/23 22:07 Ns IV 12/18/23 21:00 Infused .Q1H1M MARGUERITE Infusion Vancomycin HCl 2,000 mg in 500 mls @ 250 mls/hr 12/18/23 19:49 12/18/23 21:03 Vancomycin/Ns IV 12/18/23 21:48 250 mls/hr ONCE ONE Administration Piperacillin Sod/Tazobactam 50 mls @ 100 mls/hr 12/18/23 19:49 12/18/23 21:02 Sod 3.375 gm/ Sodium Chloride IV 12/18/23 20:18 Infused ONCE ONE Infusion Iohexol 100 ml 12/18/23 20:43 12/18/23 20:44 Iohexol 350 Mg/Ml 100 Ml Infus..Btl IV 12/18/23 20:44 85 ml ONCE ONE Administration Morphine Sulfate 4 mg 12/18/23 19:49 12/18/23 20:29 Morphine Sulfate 4 Mg/Ml Cartridge IVPUSH 12/18/23 19:50 4 mg ONCE ONE Administration Protocol Ondansetron HCl 4 mg 12/18/23 19:49 12/18/23 20:30 Ondansetron Hcl 4 Mg/2 Ml Vial IVPUSH 12/18/23 19:50 4 mg ONCE ONE Administration Medical Decision Making Medical Decision Making [facility] Narrative: 38-year-old diabetic male presents for evaluation of scrotal pain and swelling. His findings are concerning for a scrotal abscess. Given that his symptoms started yesterday and he has fairly extensive erythema and nearly circumferential scrotal edema, we will get a CT scan of the pelvis to evaluate for gas producing organisms and rule out Daya's gangrene/necrotizing fasciitis. He is tachycardic to 116, we will treat with IV fluids, the patient is afebrile but does a white count. Given the suspected infection with SIRS criteria of tachycardia and a leukocytosis we will treat with vancomycin and Zosyn. An ultrasound of the scrotum was ordered but I have a low suspicion for torsion. I did order blood cultures, lactic acid and a CPK Differential Diagnosis Differential Diagnoses: The differential diagnosis associated with the presentation includes Scrotal abscess Scrotal cellulitis Sepsis Hydrocele Testicular torsion less likely Admission/Observation Consideration of admission/observation: Escalation of care including admission/observation considered Consult Healthcare Provider Management of the patient was discussed with: Hospitalist Lab Data [facility] Lab Attestation statement: I reviewed the patient's lab results. Leukocytosis to 13.0 K with a left shift. There is no bandemia. Patient's chemistries are significant for an elevated glucose to 306. He also has a sodium of 134, however once corrected for the hyperglycemia this is within normal limits. No other electrolyte abnormalities. 12/18/23 18:41 12/18/23 18:41 Labs: Lab Results 12/18/23 12/18/23 Range/Units 18:41 20:16 WBC 13.0 H (4.8-10.8) X10*3/uL RBC 5.33 (4.60-5.80) X10*6/uL Hgb 16.5 (14.0-18.0) g/dl Hct 45.9 (42.0-52.0) % MCV 86.1 (80.0-98.0) fL MCH 31.0 (27.0-33.0) pg MCHC 35.9 (31.0-36.0) g/dl RDW 11.7 (11.0-16.0) % Plt Count 174 (160-400) X10*3/uL MPV 11.7 (9.4-12.4) fL Immature Gran % (Auto) 0.4 (0.0-0.4) % Neut % (Auto) 78.2 H (45-73) % Lymph % (Auto) 9.4 L (20-40) % [place] % (Auto) 10.6 (2-11) % Eos % (Auto) 1.2 (0-4) % Baso % (Auto) 0.2 (0-2) % Lymph # (Auto) 1.2 (1.2-4.9) X10*3/uL [place] # (Auto) 1.4 H (0.1-1.2) X10*3/uL Eos # (Auto) 0.2 (0.0-0.4) X10*3/uL Baso # (Auto) 0.0 (0.0-0.2) X10*3/uL Abs Immat Gran (auto) 0.05 H (0.00-0.03) X10*3/uL Absolute Neuts (auto) 10.2 H (2.0-8.3) x10*3/uL Absolute Nucleated RBC 0.000 (0.0-0.012) X10*3/uL Nucleated RBC % (auto) 0.0 (0.0-0.2) /100WBC Sodium 134 L (135-145) mmol/L Potassium 4.1 (3.3-5.1) mmol/L Chloride 98 (96-108) mmol/L Carbon Dioxide 25 (22-29) mmol/L Anion Gap 15 (12-20) BUN 16 (9-16) mg/dL Creatinine 1.07 (0.5-1.4) mg/dL Estim Creat Clear Calc 122.8 Estimated GFR > 60 Random Glucose 306 H (60-115) mg/dL Lactic Acid 0.9 (0.5-2.0) mmol/L Calcium 10.0 (8.4-10.2) mg/dL Total Creatine Kinase 171 (38-174) U/L Independent Interpretation I performed an independent interpretation of an: CT Scan Interpretation: Agree with Radiology interpretation, no drainable abscess visible Radiology Impression Discussion of test interpretation with radiology: I have reviewed the radiologist's reading. Radiologist Impression: CT/CT pelvis w IV con IMPRESSION: Scrotal thickening without drainable abscess. Recommend further evaluation with scrotal ultrasound US/US scrotum IMPRESSION: Normal testes. Prominent edema is seen in the soft tissues of the right lateral scrotum. No discrete abscess collection is seen. Discharge Plan Discharge Clinical Impression: Cellulitis of scrotum Patient Disposition: Admitted As Inpatient Prescriptions: No Action doxycycline hyclate 100 mg tablet 100 mg PO BID Qty: 14 0RF prednisone 20 mg tablet See Rx Instructions .Route .COMPLEX Qty: 18 0RF Rx Instructions: 20 mg orally; 3 tabs daily for 3 days, 2 tabs daily for 3 days, 1 tab daily for 3 days metformin 500 mg tablet 500 mg PO BID Qty: 14 0RF sulfamethoxazole-trimethoprim [Bactrim DS] 800-160 mg tablet 1 tab PO BID Qty: 14 0RF cephalexin 500 mg capsule 500 mg PO QID Qty: 28 0RF cyclobenzaprine 10 mg tablet 10 mg PO TID PRN (Reason: pain, muscle spasm) Qty: 15 0RF morphine 15 mg tablet 15 mg PO Q6H PRN (Reason: pain) Qty: 14 0RF Rx Instructions: Patient may request partial fill; Partial Fill upon patient request. metformin 500 mg tablet 500 mg PO BID 90 Days Qty: 180 0RF valacyclovir [Valtrex] 1 gram tablet 1,000 mg PO Q8H 7 Days Qty: 21 0RF Print Language: Mohawk
[2023-12-18 18:45] LABS: MANUAL DIFF FLAG NO
[2023-12-18 18:50] LABS: Basophils Percent Auto 0.2 % (0-2); Eosinophils Absolute Auto 0.2 X10*3/uL (0.0-0.4); Eosinophils Percent Auto 1.2 % (0-4); Hematocrit 45.9 % (42.0-52.0); Hemoglobin 16.5 g/dl (14.0-18.0); Imm Gran Abs Auto 0.05 X10*3/uL (0.00-0.03); Imm Gran Pct Auto 0.4 % (0.0-0.4); Lymphocytes Absolute Auto 1.2 X10*3/uL (1.2-4.9); Lymphocytes Percent Auto 9.4 % (20-40); Mean Corpuscular HGB Conc 35.9 g/dl (31.0-36.0); Mean Corpuscular Volume 86.1 fL (80.0-98.0); Mean Platelet Volume 11.7 fL (9.4-12.4); Monocytes Absolute Auto 1.4 X10*3/uL (0.1-1.2); Monocytes Percent Auto 10.6 % (2-11); Neutrophils Absolute Auto 10.2 x10*3/uL (2.0-8.3); Neutrophils Percent Auto 78.2 % (45-73); Platelet Count 174 X10*3/uL (160-400); Red Blood Count 5.33 X10*6/uL (4.60-5.80); Red Cell Distribution Width 11.7 % (11.0-16.0)
[2023-12-18 18:59] LABS: Anion Gap 15 (12-20); Blood Urea Nitrogen 16 mg/dL (9-16); Carbon Dioxide 25 mmol/L (22-29); Chloride 98 mmol/L (96-108); Creatinine Clr Calc Pharmacy 122.8; Estimated Glomerular Filt Rate > 60; Glucose Random 306 mg/dL (60-115); Potassium 4.1 mmol/L (3.3-5.1); Sodium 134 mmol/L (135-145)
[2023-12-18] MEDS: 0.9 % Sodium Chloride 1,000 ML 999 ML IV (20:18)
[2023-12-18 20:29] VITALS: RESP 18
[2023-12-18] MEDS: Morphine Sulfate 4 MG/ML CARTRIDGE IVPUSH (20:29)
[2023-12-18] MEDS: Piperacillin Sodium/Tazobactam 3.375 GM in 0.9 % Sodium Chloride 50 ML IV (20:30)
[2023-12-18] MEDS: ondansetron HCL 4 MG/2 ML VIAL IVPUSH (20:30)
[2023-12-18 20:36] VITALS: BP 136/93; PULSE 104; RESP 20; TEMP 36.8; O2SAT 97
[2023-12-18 20:37] LABS: Lactic Acid 0.9 mmol/L (0.5-2.0)
[2023-12-18] MEDS: iohexoL 350 MG/ML 100 ML INFUS..BTL IV (20:44)
[2023-12-18] MEDS: vancomycin/NS 2,000 MG/500 ML PLAST..BAG 250 MG IV (21:03)
--- NOTE | 2023-12-18 21:33 | PC.NURSE ---
pt a&ox4, tachycardic, other vss. pt reports 9/10 r inguinal/scrotal pain radiating up r leg/buttock with increased redness and swelling starting yesterday. reports hx of abscesses to buttocks and recent shingles outbreak. 20G PIV placed left AC, additional labs and first set of cultures obtained, tech at bedside for additional set. pt medicated per JUN, 1L NS running. pt pending CT and u/s results. cont'd pain despite morphine administration. resting quietly, no new orders at this time.
[2023-12-18 22:08] VITALS: BP 134/92; PULSE 103; RESP 20; TEMP 36.8; O2SAT 97
[2023-12-18 22:34] VITALS: BP 127/73; PULSE 101; RESP 20; TEMP 36.8; O2SAT 96
--- NOTE | 2023-12-19 00:08 | P.HPHOSP_ITS ---
History of Present Illness Date of Service: 12/19/23 Chief Complaint: Scrotal infection This is a 38-year-old male with pertinent history of meh-twohotw-kdrsgrsyh diabetes mellitus who presents to the emergency department for evaluation of scrotal pain. Patient states his symptoms started 1 day prior to presentation. He has been having right-sided scrotal pain with erythema, warmth and swelling. His symptoms have been progressive which prompted ER visit. No history of similar symptoms before. Had rectal abscess in the past. No documented fever but endorses chills. No nausea, vomiting, chest pain, palpitations, shortness of breath, abdominal pain, changes in urinary or bowel habits. In the emergency department, imaging with scrotal thickening without abscess. Patient was found to be septic and initiated on empiric IV antibiotics. Review of Systems 2 Constitutional: Constitutional: Reports chills Cardiovascular: Cardiovascular: Reports no additional cardiovascular complaints Respiratory: Respiratory: Reports no additional respiratory complaints Gastrointestinal: Gastrointestinal: Reports no additional gastrointestinal complaints [facility] Medical History Uncontrolled diabetes mellitus with hyperglycemia Cigarette smoker Hypertension Type 2 diabetes mellitus Pertinent family history: No family history of early CAD Social History Household Members: Children Housing: House Do you presently have visiting nurse or other home services: No Alcohol intake: current Patient Tobacco Use Status: Current everyday Tobacco user Tobacco use type: Cigarette Cigarettes Per Day: 10 Years Smoked: 16 Second Hand Smoke Exposure: No Substance Use Type: Marijuana Advance Directives: No Advance Directives Information Provided: No Do you have a plan to hurt others: No Plan service: No Meds Allergies Allergy/AdvReac Type Severity Reaction Status Date / Time cat dander [CAT] Allergy Mild FACIAL Verified 12/18/23 18:29 SWELLING WATERY EYES dog dander [DOG] Allergy Mild FACIAL Verified 12/18/23 18:29 SWELLING, WATERY EYES Physical Exam 2 Vital Signs and Narrative: Vital Signs: Last Vital Signs Temp 98.3 F 12/18/23 22:34 Pulse 101 H 12/18/23 22:34 Resp 20 12/18/23 22:34 BP 127/73 12/18/23 22:34 Pulse Ox 96 12/18/23 22:34 O2 Del Method Room Air 12/18/23 22:34 BMI result Body Mass Index 33.2 Middle-aged male lying in bed in no distress Neck supple, no JVD Regular rate and rhythm, S1-S2 heard Regular breath sounds bilaterally, no wheezing or crackles appreciated Abdomen soft nontender, no guarding, no rigidity Patient is awake, alert and oriented to self, place, time and person ; no focal motor deficit Scrotal swelling with erythema, warmth and tenderness Psych: Normal mood No pedal edema Results Labs 12/18/23 18:41 12/18/23 18:41 Labs: Laboratory Results - last 24 hr 12/18/23 12/18/23 18:41 20:16 MCV 86.1 MCH 31.0 MCHC 35.9 RDW 11.7 Plt Count 174 MPV 11.7 Immature Gran % (Auto) 0.4 Neut % (Auto) 78.2 H Lymph % (Auto) 9.4 L [place] % (Auto) 10.6 Eos % (Auto) 1.2 Baso % (Auto) 0.2 Lymph # (Auto) 1.2 [place] # (Auto) 1.4 H Eos # (Auto) 0.2 Baso # (Auto) 0.0 Abs Immat Gran (auto) 0.05 H Absolute Neuts (auto) 10.2 H Absolute Nucleated RBC 0.000 Nucleated RBC % (auto) 0.0 Anion Gap 15 Estim Creat Clear Calc 122.8 Estimated GFR > 60 Random Glucose 306 H Lactic Acid 0.9 Calcium 10.0 Total Creatine Kinase 171 Imaging Radiologist's Impressions: Impressions Scrotum Ultrasound 12/18/23 19:25 IMPRESSION: Normal testes. Prominent edema is seen in the soft tissues of the right lateral scrotum. No discrete abscess collection is seen. Electronically signed by: Jose Luis Rehman MD 12/18/2023 09:04 PM EDT RP Pelvis CT 12/18/23 20:31 IMPRESSION: Scrotal thickening without drainable abscess. Recommend further evaluation with scrotal ultrasound Electronically signed by: Tylor Gillespie DO 12/18/2023 10:55 PM EDT RP Assessment and Plan (1) Cellulitis of scrotum: Status: Acute Plan This is a 38-year-old male with pertinent history of whq-wvqkevd-dlufwglfe diabetes mellitus who presents to the emergency department for evaluation of scrotal pain. #. Sepsis due to scrotal cellulitis: Resuscitated with IV crystalloids. Lactic acid and blood culture obtained. Initiated empiric IV vancomycin. Monitor for improvement. #. Ehb-swebpxk-nqqwuaoda diabetes mellitus with hyperglycemia: Initiating Accu-Cheks with sliding scale insulin. A1c pending #. Herpes zoster: Recent diagnosis and is currently on valacyclovir. Med rec pending DVT prophylaxis: Lovenox Full code Admit as inpatient and will require two night minimum hospital stay for IV antibiotics (as above), which is not possible in a lesser acute setting. Quality Stroke Does the patient have a stroke diagnosis?: No VTE Prior VTE?: No VTE Risk Level:: Medical - moderate - high VTE Device Contraindication: Treatment Not Indicated VTE Drug Contraindication: N/A - Med Ordered
[2023-12-19] MEDS: Enoxaparin Sodium 40 MG/0.4 ML SYRINGE SUBCUT (01:32)
[2023-12-19] MEDS: Insulin Glargine,Hum.rec.anlog 100 UNIT/ML 10 ML VIAL 20 UNIT SUBCUT ×2 (01:32→21:34)
[2023-12-19 01:33] VITALS: BP 110/61; PULSE 98; RESP 18; TEMP 36.8; O2SAT 93
[2023-12-19] MEDS: Acetaminophen 325 MG TABLET 650 MG PO (01:40)
[2023-12-19 04:35] LABS: MANUAL DIFF FLAG NO
[2023-12-19 04:39] LABS: Basophils Absolute Auto 0.1 X10*3/uL (0.0-0.2); Basophils Percent Auto 0.4 % (0-2); Eosinophils Absolute Auto 0.2 X10*3/uL (0.0-0.4); Eosinophils Percent Auto 1.3 % (0-4); Hematocrit 43.4 % (42.0-52.0); Hemoglobin 15.6 g/dl (14.0-18.0); Imm Gran Abs Auto 0.04 X10*3/uL (0.00-0.03); Imm Gran Pct Auto 0.3 % (0.0-0.4); Lymphocytes Absolute Auto 1.4 X10*3/uL (1.2-4.9); Lymphocytes Percent Auto 11.2 % (20-40); Mean Corpuscular HGB Conc 35.9 g/dl (31.0-36.0); Mean Corpuscular Hemoglobin 31.1 pg (27.0-33.0); Mean Corpuscular Volume 86.5 fL (80.0-98.0); Mean Platelet Volume 11.7 fL (9.4-12.4); Monocytes Absolute Auto 1.4 X10*3/uL (0.1-1.2); Neutrophils Absolute Auto 9.6 x10*3/uL (2.0-8.3); Neutrophils Percent Auto 75.8 % (45-73); Platelet Count 164 X10*3/uL (160-400); Red Blood Count 5.02 X10*6/uL (4.60-5.80); Red Cell Distribution Width 11.7 % (11.0-16.0); White Blood Count 12.7 X10*3/uL (4.8-10.8)
[2023-12-19 04:48] LABS: Anion Gap 13 (12-20); Blood Urea Nitrogen 12 mg/dL (9-16); Calcium 9.4 mg/dL (8.4-10.2); Carbon Dioxide 25 mmol/L (22-29); Chloride 99 mmol/L (96-108); Creatinine Clr Calc Pharmacy 152.8; Estimated Glomerular Filt Rate > 60; Glucose Random 276 mg/dL (60-115); Potassium 4.1 mmol/L (3.3-5.1); Sodium 133 mmol/L (135-145)
[2023-12-19 06:36] VITALS: BP 127/95; PULSE 95; RESP 12; TEMP 36.7; O2SAT 97
[2023-12-19 07:03] LABS: Estimated Average Glucose 272 mg/dL; Hemoglobin A1c % 11.1 % (<6.0)
[2023-12-19 07:19] LABS: Glucose, Whole Blood 245 mg/dL (60-115)
[2023-12-19] MEDS: Insulin Lispro 100 UNIT/ML 3 ML VIAL SUBCUT ×4 (07:37→21:35)
--- NOTE | 2023-12-19 08:05 | PHA.PROG ---
Admission Date/Time: December 19, 2023 00:07 Indication: Sepsis due to scrotal cellulitis Weight in k.13 kg Adjusted body weight in K kg [place] body weight in K.6 kg Obesity Dosing Indication % IBW: 143% Serum Creatinine - Last 168 Hours 12/18/23 12/19/23 18:41 04:33 Creatinine 1.07 0.86 Estimated CrCl and GFR - Last 168 Hours 12/18/23 12/19/23 18:41 04:33 Estim Creat Clear Calc 122.8 152.8 Estimated GFR > 60 > 60 Vancomycin Loading Dose: 2000 mg Current Vancomycin Dosing Regimen: 1500 mg Q12H Date and Time for next Vancomycin Level to be drawn: 12/19 @ 0700 Pharmacist Comments on Vancomycin Plan: Patient received an adequate load dose in the ER on 12/17 @ 2102. Maintenance dose vancomycin 1500 mg q12his schedule to start 12/18 @ 0900. Predicted AUC 551 with a trough of 17.3. Patient is consider obese with %IBW > 130%, therefore close monitor is require due to vancomycin's high volume of distribution. Level will be drawn prior to the 4th dose Pharmacy will monitor the renal function daily Mikayla Candelaria PharmD Vancomycin dosing will take advantage of [employer] as a clinical decision support tool that uses Bayesian modeling to calculate individual patient's pharmacokinetic parameters and forecast the patient's drug concentration time course with the target goal AUC 24 range of 400 - 600 mg/L/hr.
[2023-12-19] MEDS: 0.9 % Sodium Chloride Flush 3 ML SYRINGE IVFLUSH ×2 (08:19→21:36)
[2023-12-19 08:24] LABS: Appearance Urine Clear; Color Urine Yellow; Glucose Urine UA >=1000 mg/dL (Negative); Leukocyte Esterase Urine Negative (Negative); Nitrite Urine Negative (Negative); PH 5.5 (5.0-9.0); Specific Gravity - Urine 1.025 (1.005-1.025); UMIC TRIGGER UACC YES; Urine Blood Negative (Negative); Urine Ketones 80 mg/dL (Negative); Urine Protein Negative (Neg-Trace)
[2023-12-19 08:26] LABS: Bacteria Urine None Seen (None Seen); Hyaline Casts Urine 0-2 /LPF (0-2); RBC Urine 0-2 /HPF (0-2); Squamous Epithelial Cell Urine 0-2 /HPF (0-2); WBC Urine 0-5 /HPF (0-5)
--- NOTE | 2023-12-19 09:32 | PHA.MEDREC ---
Addendum entered by Korin Smiley RPh 12/19/23 09:51: Med rec was reviewed by Tasia. Original Note: Pharmacy Consult ? Medication Reconciliation Pharmacy has completed the medication reconciliation. Spoke with patient to confirm. He last took the metformin and valtrex yesterday.
[2023-12-19 09:35] VITALS: BP 140/88; PULSE 89; RESP 16; O2SAT 95
[2023-12-19 09:38] VITALS: TEMP 36.6
[2023-12-19] MEDS: vancomycin HCL 1,500 MG in 0.9 % Sodium Chloride 500 ML 333.33 MG IV ×2 (09:39→21:34)
[2023-12-19 11:41] LABS: Glucose, Whole Blood 221 mg/dL (60-115)
--- NOTE | 2023-12-19 13:14 | PM.EVENT ---
Event Note Date of Service: 12/19/23 Event Note: This is a 38-year-old male with pertinent history of wgs-awfdnfr-kaecmmqdf diabetes mellitus who presents to the emergency department for evaluation of scrotal pain. Sepsis due to scrotal cellulitis Resuscitated with IV crystalloids. Lactic acid and blood culture obtained. Initiated empiric IV vancomycin. Monitor for improvement. Jhi-usptmsr-urqpdkljs diabetes mellitus with hyperglycemia Initiating Accu-Cheks with sliding scale insulin. A1c pending Herpes zoster Recent diagnosis and is currently on valacyclovir. DVT prophylaxis: Lovenox Full code Admit as inpatient and will require two night minimum hospital stay for IV antibiotics (as above), which is not possible in a lesser acute setting. Time Spent With Patient Time: Total time managing care of this patient today ____ minutes.
[2023-12-19 14:35] VITALS: BMI 32.3
--- NOTE | 2023-12-19 14:47 | HO.SKINPHOTO ---
Location: R scrotal Category:abcess Stage: Length: Width: Depth: cm
[2023-12-19 15:56] VITALS: BP 137/90; PULSE 90; RESP 20; TEMP 36.6; O2SAT 96
[2023-12-19 16:34] LABS: Glucose, Whole Blood 297 mg/dL (60-115)
[2023-12-19] MEDS: valACYclovir HCL 1,000 MG TABLET 1000 MG PO (19:47)
[2023-12-19] MEDS: Morphine Sulfate Immed Release 15 MG TABLET PO (19:47)
[2023-12-19 20:00] VITALS: PULSE 93; RESP 20; TEMP 36.4; O2SAT 97
[2023-12-19 21:02] LABS: Glucose, Whole Blood 266 mg/dL (60-115)
[2023-12-20] MEDS: Enoxaparin Sodium 40 MG/0.4 ML SYRINGE SUBCUT (00:06)
[2023-12-20] MEDS: valACYclovir HCL 1,000 MG TABLET 1000 MG PO (03:13)
[2023-12-20 04:00] VITALS: BP 135/86; PULSE 80; RESP 18; TEMP 36.4; O2SAT 94
[2023-12-20 07:23] LABS: Glucose, Whole Blood 223 mg/dL (60-115)
[2023-12-20] MEDS: Insulin Lispro 100 UNIT/ML 3 ML VIAL SUBCUT (07:42)
[2023-12-20] MEDS: 0.9 % Sodium Chloride Flush 3 ML SYRINGE IVFLUSH (07:43)
[2023-12-20 07:52] VITALS: BP 142/89; PULSE 88; RESP 18; TEMP 36.1; O2SAT 96
--- NOTE | 2023-12-20 08:11 | PM.DS ---
DS: Providers Provider Date of Service: 12/20/23 Date of admission: 12/19/23 00:07 Primary care physician: Juan Canales MD Consults: 12/19/23 14:40 Consult to Wound Care Routine Reason for consultation: scrotal cellulitis/sbcess DS: Diagnosis Discharge Diagnosis (1) Cellulitis of scrotum: Status: Acute DS: Summary Hospital Course Hospital Course: History and physical as per admitting provider. This is a 38-year-old male with pertinent history of tsz-[id number] diabetes mellitus who presents to the emergency department for evaluation of scrotal pain. Patient states his symptoms started 1 day prior to presentation. He has been having right-sided scrotal pain with erythema, warmth and swelling. His symptoms have been progressive which prompted ER visit. No history of similar symptoms before. Had rectal abscess in the past. No documented fever but endorses chills. No nausea, vomiting, chest pain, palpitations, shortness of breath, abdominal pain, changes in urinary or bowel habits. In the emergency department, imaging with scrotal thickening without abscess. Patient was found to be septic and initiated on empiric IV antibiotics. 38-year-old man treated for sepsis secondary to scrotal cellulitis. Treated with IV fluids, IV vancomycin. Blood cultures have remained negative. Likely secondary to uncontrolled diabetes. Erythema and edema significantly improved. Patient has no issues urinating and ambulating fine. May use warm compress for swelling, encouraged to not do any heavy lifting for the next few days, rest and hydrate. We will send home to complete course of antibiotics. Diabetes mellitus type 2. A1c 11.1. Will need stricter blood sugar control. Continue home medications. Follow up with clinical nursing instructor for better management of diabetes. Herpes zoster. Recent diagnosis, on valacyclovir Class 1 obesity. Discussed importance of weight management as this may be contributing to worsening of other comorbidities Time Attestation Discharge Coordination Time (in mins): 30 Quality: Safe Use of Opioids Does Pt have an Active Cancer Diagnosis on the Problem List?: No Quality: Stroke Does the patient have a stroke diagnosis?: No Physical Exam Vital Signs: Vital Signs: Last Vital Signs Temp 97.0 F 12/20/23 07:52 Pulse 88 12/20/23 07:52 Resp 18 12/20/23 07:52 BP 142/89 H 12/20/23 07:52 Pulse Ox 96 12/20/23 07:52 O2 Del Method Room Air 12/20/23 07:52 BMI result Body Mass Index 32.3 Appearing in no acute distress head is normocephalic atraumatic eyes pupils are PERRLA sclera is anicteric mouth throat mucous membranes are intact and moist neck is supple no lymphadenopathy, no JVD noted lung sounds are clear to auscultation heart regular rate rhythm, clear S1, S2 positive bowel sounds, abdomen is soft, nontender neuro patient is alert x3, no focal deficits Mild scrotal edema noted DS: Data Data Completed and Pending Labs on day of discharge: Laboratory Results - last 24 hr 12/19/23 12/19/23 12/19/23 08:14 11:34 16:22 POC Glucose 221 H 297 H Urine Color Yellow Urine Appearance Clear Urine pH 5.[address] [place] 1.025 Urine Protein Negative Urine Glucose (UA) >=1000 H Urine Ketones 80 Urine Blood Negative Urine Nitrite Negative Ur Leukocyte Esterase Negative Urine RBC 0-2 Urine WBC 0-5 Ur Squamous Epith Cells 0-2 Urine Bacteria None Seen Hyaline Casts 0-2 12/19/23 12/20/23 20:58 07:16 POC Glucose 266 H 223 H Urine Color Urine Appearance Urine pH Ur Specific [place] Urine Protein Urine Glucose (UA) Urine Ketones Urine Blood Urine Nitrite Ur Leukocyte Esterase Urine RBC Urine WBC Ur Squamous Epith Cells Urine Bacteria Hyaline Casts Preliminary micro results at discharge 12/18/23 20:29 Blood Culture - Preliminary Blood - Venous No growth after 24 hours. 12/18/23 20:16 Blood Culture - Preliminary Blood - Venous No growth after 24 hours. Discharge Plan Discharge Anticipated Discharge Date/Time: 12/20/23 08:14 Patient Disposition: Home, Self-Care Discharge Diagnosis: Scrotal cellulitis Uncontrolled diabetes mellitus Referrals: Harrison Arteaga MD [Physician] - None (Follow-up for better diabetes control) Juan Canales MD [Primary Care Provider] - 1 Week Discharge Medications: New doxycycline hyclate 100 mg tablet 100 mg PO BID Qty: 16 0RF Continued cyclobenzaprine 10 mg tablet 10 mg PO TID PRN (Reason: pain, muscle spasm) Qty: 15 0RF morphine 15 mg tablet 15 mg PO Q6H PRN (Reason: pain) Qty: 14 0RF Rx Instructions: Patient may request partial fill; Partial Fill upon patient request. metformin 500 mg tablet 500 mg PO BID 90 Days Qty: 180 0RF valacyclovir [Valtrex] 1 gram tablet 1,000 mg PO Q8H 7 Days Qty: 21 0RF ibuprofen 200 mg Tablet 600 mg PO DAILY PRN (Reason: Pain) Discharge Orders: Discharge Order (Routine); Ordered 12/20/23 Ordered By: Rose Baires Diet: Advance to usual diet Activity on Discharge: As tolerated Stand Alone Forms: Patient Portal Discharge page, Work/School Release Print Language: Divehi Care Plan Goals: Your A1c is 11.1. It may be good to follow up with an clinical nursing instructor for better blood sugar control. Managing your blood sugar will help decrease risk of developing issues such as abscesses and cellulitis. Weight loss will also help control your diabetes as well. Health Concerns: Scrotal cellulitis Uncontrolled diabetes mellitus Plan of Treatment: Follow-up with primary care provider as needed Take all medications as prescribed Assessment: See discharge summary
[2023-12-20 08:19] LABS: Creatinine Clr Calc Pharmacy 147.3; Estimated Glomerular Filt Rate > 60
[2023-12-20 08:22] LABS: Vancomycin Trough 6.8 mcg/mL (10.0-20.0)
--- NOTE | 2023-12-20 08:33 | HE.PHANOTE ---
VANCO DOSE ADJUSTMENT BASED ON SCR AND TROUGH OF 6.8 DOSE INCREASED TO 1500 Q . NEXT TROUGH 12/20 @ 0700
[2023-12-20] MEDS: vancomycin HCL 1,500 MG in 0.9 % Sodium Chloride 500 ML 333.33 MG IV (09:13)
--- NOTE | 2023-12-20 16:29 | MHC.CM.PN ---
PT LIVES WITH HIS AND CHILDREN AND IS INDEPENDENT WITH CARE PT HAS NO SERVICES AND NO DME AND WORKS FT PCP: PRITI RODRIGUEZ PT DISCHARGED HOME TODAY WITH NO SERVICES
== END 2023-12-20 10:49 | disposition home or self-care (01) | DRG 872 ==
LOC: HO.ED 23:07 → HO.EDOVER 12-19 00:18 → HO.S3 12-19 13:40
PROVIDERS: Nurse Practitioner Family; Physician Assistant; Admitting Provider Student in an Organized Health Care Education/Training Program; Emergency Provider Emergency Medicine Emergency Medical Services; PCP Family Medicine; Visit Provider Nurse Practitioner Acute Care
DX: A41.9 Sepsis, unspecified organism (principal); N49.2 Inflammatory disorders of scrotum; B02.9 Zoster without complications; E11.65 Type 2 diabetes mellitus with hyperglycemia; E66.8 Other obesity; Z68.32 Body mass index [BMI] 32.0-32.9, adult; Z71.3 Dietary counseling and surveillance; F17.210 Nicotine dependence, cigarettes, uncomplicated; Z71.6 Tobacco abuse counseling; Z79.84 Long term (current) use of oral hypoglycemic drugs; Z79.899 Other long term (current) drug therapy
CPT/HCPCS: 36415; 72193; 76870; 80048; 80202; 81001; 82550; 82565; 82947; 83036; 83605; 85025; 87040; 93975; 99285; J1650; J2270; J2405; J2543; J3370; J3371; Q9967

== ENCOUNTER → 2023-12-19 00:07 | Outpatient (BNV) | payer OTHER, SELFPAY | PROVIDERS: Admitting Provider Student in an Organized Health Care Education/Training Program; Emergency Provider Emergency Medicine Emergency Medical Services; PCP Family Medicine; Visit Provider Student in an Organized Health Care Education/Training Program | DX: N49.2 Inflammatory disorders of scrotum (principal) | CPT/HCPCS: 99222; 99238; 99499 ==

== ENCOUNTER → 2023-12-23 09:48 | Outpatient (BNVA) | payer OTHER, SELFPAY | PROVIDERS: PCP Family Medicine; Visit Provider Internal Medicine ==

== ENCOUNTER 2024-04-04 09:48 | Outpatient (AMB) | payer OTHER, SELFPAY ==
--- NOTE | 2024-04-04 10:19 | A.OFFPC_ITS ---
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 Intake Note: establish care Allergies cat dander [CAT] Allergy (Mild, Verified 04/04/24 10:20) FACIAL SWELLING WATERY EYES dog dander [DOG] Allergy (Mild, Verified 04/04/24 10:20) FACIAL SWELLING, WATERY EYES Medication List - Last Reconciled 04/04/24 by Juan Canales MD metformin 500 mg PO BID 90 days Tobacco use date assessed: 04/04/24 Dental Screening Dental Screen Date: 04/04/24 Did you have a dental visit in the last 12 months?: No Did you have a dental problem in the last 6 months where you did not have access to dental care?: No Was dental information given to patient?: Patient has dentist HPI 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 ?? Prior PCP:? No pcp in 10 yrs Acute issue(s):? DM Abscesses ?? PMHx:? DM w/ Neuropathy,, HTN, SurgHx:? Tonsils& Adenoids FHx:? Dad: DM, Renal failure. Mom: healthy. GM: Colon CA SocHx:? Smokes cigs. 1/2 ppd. EtOH rarely. MJ daily. No other drugs PFSH Medical History Uncontrolled diabetes mellitus with hyperglycemia Cigarette smoker Hypertension Type 2 diabetes mellitus Social History Household Members: Spouse and Children Housing: Apartment Do you presently have visiting nurse or other home services: No Alcohol intake: current Alcohol intake frequency: does not drink Patient Tobacco Use Status: Current everyday Tobacco user Tobacco use type: Cigarette Cigarettes Per Day: 10 Years Smoked: 16 e-Cigarette/Vaping Use: Never Used Second Hand Smoke Exposure: No Substance Use Type: Marijuana service: No Current occupational status: employed 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 1. Little interest or pleasure in doing things: not at all 2. Feeling down, depressed, or hopeless: not at all 3. Trouble falling or staying asleep, or sleeping too much: nearly every day 4. Feeling tired or having little energy: several days 5. Poor appetite or overeating: several days 6. Feeling bad about yourself - or that you are a failure or have let yourself or your family down: not at all 7. Trouble concentrating on things, such as reading the newspaper or watching television: not at all 8. Moving or speaking so slowly that other people could have noticed. Or the opposite - being so fidgety or restless that you have been moving around a lot more than usual: not at all 9. Thoughts that you would be better off or of hurting yourself in some way: not at all Total score: 5 Depression Screening Interpretation: Positive Depression Screening Done: Yes 28690 - PHQ-9 Billing: Yes Source: Developed by Drs. Harrison Ramírez, Kristine Cox, Jose Alfredo Zaldivar and colleagues, with an educational lorenzo from [employer]. Thrive Questionnaire Date Thrive assessed: 04/04/24 I am a: Patient What is your living situation today?: I have a steady place to live Within the past 12 months, did the food you bought not last and you didn't have the money to get more?: Sometimes True Within the past 12 months, did you worry whether your food would run out before you got money to buy more?: Sometimes True Do you have trouble paying for medicines?: Yes Do you have trouble getting transportation to medical appointments?: No Do you have trouble paying your heating and electricity bill?: No Do you have trouble taking care of your child, family member or friend?: No Do you have trouble with day-to-day activities such as bathing, preparing meals, shopping, managing finances, etc.?: No Are you currently unemployed and looking for a job?: No Are you interested in more education?: No Please select the resources that you would like help with: None Currently or been in a relationship where the following occur: No concerns reported THRIVE Score: 2 AUDIT C Alcohol Use Questionnaire (AUDIT-C) 1. How often do you have a drink containing alcohol?: Monthly or less 2. How many drinks containing alcohol do you have on a typical day when you are drinking?: 1 or 2 3. How often do you have six or more drinks on one occasion?: Never Total Score: 1 AMANDA-7 AMB Questionnaire AMANDA-7 Date AMANDA - 7 assessed: 04/04/24 Feeling nervous, anxious, or on edge: 1 = Several days Not being able to stop or control worryin = Not at all Worrying too much about different things: 0 = Not at all Trouble relaxin = Not at all Being so restless that it is hard to sit still: 0 = Not at all Becoming easily annoyed or irritable: 1 = Several days Feeling afraid as if something awful might happen: 0 = Not at all Total AMANDA-7 score (0-4 normal; 5-9 mild; 10-14 moderate; 15-21 severe): 2 Source: Developed by Drs. Harrison Ramírez, Kristine Cox, Jose Alfredo Zaldivar and colleagues, with an educational lorenzo from [employer]. AMANDA-7 Assessment Billing AMANDA-7 Assessment Tool: AMANDA-7 Assessment 22229 Review of Systems Const Denies chills, Denies fatigue, Denies fever(s), Denies headache(s) and Denies weakness ENT Denies dizziness and Denies headache(s) Card Denies chest pain, Denies lightheadedness, Denies dyspnea and Denies other (Palpitations) Resp Denies cough, Denies dyspnea, Denies wheezing and Denies other ( shortness of breath) Musc Denies numbness and Denies tingling Neuro Denies dizziness, Denies headache(s), Denies numbness, Denies tingling, Denies paresthesias and Denies weakness Psych Denies anxiety and Denies depression Endo Denies fatigue Aller/Immun Denies wheezing Physical exam (Primary Care) Vital Signs: Last Vital Signs Pulse 88 04/04/24 10:25 Resp 16 04/04/24 10:25 BP 110/70 04/04/24 10:25 Pulse Ox 97 04/04/24 10:25 Oxygen Delivery Method Room Air 04/04/24 10:25 BMI result Body Mass Index 33.6 Tobacco/Smoking Status: Tobacco use Status Tobacco use date assessed 04/04/24 04/04/24 10:25 Patient Tobacco Use Status Current everyday Tobacco 04/04/24 10:25 Tobacco use type Cigarette 04/04/24 10:25 e-Cigarette/Vaping Use Never Used 04/04/24 10:25 PHQ-9: PHQ-9 Score PHQ-9: Total score 5 04/04/24 10:40 Depression Screening Interpretation: Positive Thrive Assessment: Date of Thrive Assessment Date Thrive assessed 04/04/24 04/04/24 10:25 Currently or been in a relationship where the following occur: No concerns reported Const General: no acute distress and well developed Nutritional Appearance: well nourished Orientation/consciousness: patient oriented x3 HENMT Head: Yes normocephalic and Yes atraumatic Eyes General: appearance normal, both eyes and all related structures Pupils: Equal, round and reactive pupils present EOM: EOMs intact bilaterally Resp Effort & Inspection: normal respiratory effort Auscultation: clear to auscultation bilaterally Cardio Rate: regular rate Rhythm: regular rhythm Heart sounds: S1 normal heart sound present, S2 normal heart sound present, no gallops, no murmurs and no rubs Neuro General: patient oriented x3 and gait normal Cranial nerves: Yes Equal, round and reactive pupils present Psych Affect: normal affect Coding Level of Care Code New Pt Level 3 (08709) Diagnoses Hypertension I10 Skin abscess L02.91 Sleep apnea G47.30 Laboratory exam ordered as part of routine general medical examination Z00.00 Diabetes mellitus with neuropathy E11.40 Additional Codes AMANDA-7 Assessment Billing - AMANDA-7 Assessment Tool: AMANDA-7 Assessment 54449 ([id number]) PHQ-9 - 70598 - PHQ-9 Billing: Yes ([id number]) Assessment & Plan Assessment & Plan (1) Hypertension: Code(s): I10 - Essential (primary) hypertension Category: Medical Plan: History?of?hypertension.??Patient?has?lost?weight.??Blood?pressure?is?controlled . Will?monitor (2) Skin abscess: Code(s): L02.91 - Cutaneous abscess, unspecified Category: Medical Plan: Fluctuant?skin?abscess?at?left?proximal?forearm Area?was?prepped?and?draped?in?the?usual?fashion?with?Betadine 11.?Scalpel?was?used?to?make?a?puncture?incision?a nd?approximately?3?cc?pus?was?expressed?from?wound. Wound?was?then flushed?with?5?cc?saline Bacitracin?was?applied?and?Telfa?pad?with?tape Prescribed?cephalexin?which?he?will?take?times?10?days Encouraged?warm?soaks Call?or?return?to?office (3) Sleep apnea: Code(s): G47.30 - Sleep apnea, unspecified Category: Medical Plan: Refer?to?Sleep?Medicine (4) Laboratory exam ordered as part of routine general medical examination: Code(s): Z00.00 - Encounter for general adult medical examination without abnormal findings Category: Medical Plan: Check?labs (5) Diabetes mellitus with neuropathy: Code(s): E11.40 - Type 2 diabetes mellitus with diabetic neuropathy, unspecified Category: Medical Plan . Orders: Orders Microalbumin, Random (w Creat) Today I10 - Essential (primary) hypertension Lipid Panel Today Z00.00 - Encounter for general adult medical examination without abnormal findings Complete Blood Count Auto Diff Today G47.30 - Sleep apnea, unspecified, Z00.00 - Encounter for general adult medical examination without abnormal findings Comprehensive [place]. Panel Fast Today Z00.00 - Encounter for general adult medical examination without abnormal findings UA and rflx microscopic Today Z00.00 - Encounter for general adult medical examination without abnormal findings TSH reflex Free T4 Today Z00.00 - Encounter for general adult medical examination without abnormal findings Referrals Sleep Medicine Referral G47.30 - Sleep apnea, unspecified Nurse Navigator Referral E11.40 - Type 2 diabetes mellitus with diabetic neuropathy, unspecified Medications: New cephalexin 500 mg PO Q12H 10 days 20 caps 0RF G47.30 - Sleep apnea, unspecified tirzepatide (Mounjaro) for 4 weeks 2.5 mg (0.5 mL) subcut QWEEK 28 days 2 mL 3RF E11.40 - Type 2 diabetes mellitus with diabetic neuropathy, unspecified Discontinued morphine Patient may request partial fill; Partial Fill upon patient request. Discontinued Reason: Patient Completed Course 15 mg PO Q6H PRN 14 tabs 0RF pain valacyclovir (Valtrex) Discontinued Reason: Patient Completed Course 1,000 mg PO Q8H 7 days 21 tabs 0RF cyclobenzaprine Discontinued Reason: Patient Completed Course 10 mg PO TID PRN 15 tabs 0RF pain, muscle spasm doxycycline hyclate Discontinued Reason: Patient Completed Course 100 mg PO BID 16 tabs 0RF
[2024-04-04 10:25] VITALS: BP 110/70; PULSE 88; RESP 16; O2SAT 97; BMI 33.6
== END 2024-04-04 11:16 | disposition home or self-care (01) ==
PROVIDERS: PCP Family Medicine; Visit Provider Family Medicine
DX: E11.40 Type 2 diabetes mellitus with diabetic neuropathy, unspecified (principal); I10 Essential (primary) hypertension; L02.91 Cutaneous abscess, unspecified; G47.30 Sleep apnea, unspecified

== ENCOUNTER → 2024-04-04 09:48 | Outpatient (BNVA) | payer OTHER, SELFPAY | PROVIDERS: PCP Family Medicine; Visit Provider Family Medicine | DX: E11.40 Type 2 diabetes mellitus with diabetic neuropathy, unspecified (principal); I10 Essential (primary) hypertension; L02.414 Cutaneous abscess of left upper limb; G47.30 Sleep apnea, unspecified | CPT/HCPCS: 10060; 83036; 96127 ==

== ENCOUNTER 2024-04-13 08:47 | Outpatient (REF) | payer OTHER, SELFPAY ==
[2024-04-13 11:06] LABS: MANUAL DIFF FLAG NO
[2024-04-13 11:22] LABS: Basophils Percent Auto 0.8 % (0-2); Eosinophils Absolute Auto 0.2 X10*3/uL (0.0-0.4); Eosinophils Percent Auto 4.6 % (0-4); Hematocrit 45.3 % (42.0-52.0); Hemoglobin 15.8 g/dl (14.0-18.0); Imm Gran Abs Auto 0.01 X10*3/uL (0.00-0.03); Imm Gran Pct Auto 0.2 % (0.0-0.4); Lymphocytes Absolute Auto 1.6 X10*3/uL (1.2-4.9); Lymphocytes Percent Auto 32.7 % (20-40); Mean Corpuscular HGB Conc 34.9 g/dl (31.0-36.0); Mean Corpuscular Hemoglobin 30.2 pg (27.0-33.0); Mean Corpuscular Volume 86.6 fL (80.0-98.0); Mean Platelet Volume 11.8 fL (9.4-12.4); Monocytes Absolute Auto 0.5 X10*3/uL (0.1-1.2); Monocytes Percent Auto 9.4 % (2-11); Neutrophils Absolute Auto 2.6 x10*3/uL (2.0-8.3); Neutrophils Percent Auto 52.3 % (45-73); Platelet Count 197 X10*3/uL (160-400); Red Blood Count 5.23 X10*6/uL (4.60-5.80); Red Cell Distribution Width 11.6 % (11.0-16.0)
[2024-04-13 11:55] LABS: Appearance Urine Clear; Color Urine Yellow; Glucose Urine UA Negative (Negative); Leukocyte Esterase Urine Negative (Negative); Nitrite Urine Negative (Negative); PH 5.5 (5.0-9.0); Specific Gravity - Urine 1.015 (1.005-1.025); Urine Blood Negative (Negative); Urine Ketones Negative (Negative); Urine Protein Negative (Neg-Trace)
[2024-04-13 12:06] LABS: Alanine Aminotransferase 68 U/L (0-40); Albumin Level 4.5 g/dL (3.5-5.0); Anion Gap 12 (12-20); Aspartate Amino Transferase 44 U/L (5-37); Bilirubin Total 0.8 mg/dL (0.0-1.0); Blood Urea Nitrogen 14 mg/dL (9-16); Calcium 9.2 mg/dL (8.4-10.2); Carbon Dioxide 28 mmol/L (22-29); Chloride 102 mmol/L (96-108); Cholesterol 159 mg/dL (<200); Estimated Glomerular Filt Rate > 60; Glucose Fasting 204 mg/dL (60-99); HDL Cholesterol 36 mg/dL (>40); LDL Cholesterol Calculated 105 mg/dL (<100); Sodium 138 mmol/L (135-145); Total Protein 7.9 g/dL (6.5-8.0); Triglycerides 94 mg/dL (<150)
[2024-04-13 12:30] LABS: Microalbum/Creatinine Ratio Ur 10.6 ug/mg cr (<30)
[2024-04-13 12:56] LABS: Alkaline Phosphatase 70 U/L (39-117)
== END 2024-04-13 08:48 | disposition home or self-care (01) ==
LOC: HO.WFDLDS 08:47
PROVIDERS: Visit Provider Family Medicine
DX: Z00.00 Encounter for general adult medical examination without abnormal findings (principal); G47.30 Sleep apnea, unspecified; I10 Essential (primary) hypertension
CPT/HCPCS: 36415; 80053; 80061; 81003; 82043; 82570; 84443; 85025

== ENCOUNTER 2024-04-14 14:52 | Outpatient (AMB) | payer OTHER, SELFPAY ==
--- NOTE | 2024-04-14 14:59 | A.OFFVIS_ITS ---
Vital Signs 04/14/24 15:00 Height 5 ft 11.5 in Weight 244 lb BMI 33.6 Intake Visit Reasons: INP-LUPE Intake Note: Patient presents for LUPE Allergies cat dander [CAT] Allergy (Mild, Verified 04/14/24 15:01) FACIAL SWELLING WATERY EYES dog dander [DOG] Allergy (Mild, Verified 04/14/24 15:01) FACIAL SWELLING, WATERY EYES Medication List - Last Reconciled 04/14/24 by Kristine Francisco PA-C cephalexin 500 mg PO Q12H 10 days metformin 500 mg PO BID 90 days tirzepatide (Mounjaro) 2.5 mg (0.5 mL) subcut QWEEK 28 days HPI Comments Details: 39 year old male referred to us by PCP Dr. Canales, for sleep evaluation. 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 His notices he is snoring loudly, gasping for air, tossing, turning a lot, sleeps on his back predominantly. He has allergies to animal dander. His A1C was 11.8, now it is better controlled on Monjaro weekly. He still feels fatigued daily, gets up at 5am for work, goes to bed at 10pm, with 3-4 bathroom breaks at night. He never has trouble falling asleep, he has trouble staying asleep through the night and takes a 1mg Melatonin gummy, this helps him stay asleep. He smokes 1/2 pack of cigarettes per day, will f/u with PCP about smoking cessation when he is ready. 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 He has improved his water intake. His vision is okay, needs an eye appointment, doesn't wear glasses but at night it can be blurry. He has R ear purulent discharge with cerumen, and feels like he is under water doesn't hear well. He denies headaches, balance and gait issues. He has bilateral foot pain with numbness, pins and needles. His mood is good he fishes and plays football. [facility] Medical History (Updated 04/14/24 @ 16:03 by Subhana Maryam, PA-C) Uncontrolled diabetes mellitus with hyperglycemia Cigarette smoker Hypertension Type 2 diabetes mellitus Surgical History (Updated 04/14/24 @ 15:02 by FRANCISCO J Perez) Hx of tonsillectomy Social History Household Members: Spouse and Children Housing: Apartment Do you presently have visiting nurse or other home services: No Alcohol intake: current Alcohol intake frequency: does not drink Patient Tobacco Use Status: Current everyday Tobacco user Tobacco use type: Cigarette Cigarettes Per Day: 10 Years Smoked: 16 e-Cigarette/Vaping Use: Never Used Second Hand Smoke Exposure: No Substance Use Type: Marijuana service: No Current occupational status: employed 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 Current occupational exposures/hazards: No Cognitive needs: No Hearing needs: Yes Vision needs: No Physical Exam Vital Signs: BMI result Body Mass Index 33.6 Assessment & Plan Assessment & Plan (1) Sleep apnea: Code(s): G47.30 - Sleep apnea, unspecified Category: Medical Qualifiers: Sleep apnea type: unspecified type Qualified Code(s): G47.30 - Sleep apnea, unspecified (2) Sleep disturbances: Code(s): G47.9 - Sleep disorder, unspecified Category: Medical (3) Fatigue due to sleep pattern disturbance: Code(s): R53.83 - Other fatigue; G47.9 - Sleep disorder, unspecified Category: Medical Plan HST: Sleep disturbances with snoring, gasping for air and witnessed apneas. Labs for excessive daytime fatigue: TSH is 0.5 will send for free T3/T4. B12 with MMA, Folate along with Iron panel and Vitamin D. Orders: Orders Methylmalonic Acid Today G47.9 - Sleep disorder, unspecified, R53.83 - Other fatigue Vitamin D 25-OH Total Today G47.9 - Sleep disorder, unspecified, R53.83 - Other fatigue RT home sleep study Today G47.30 - Sleep apnea, unspecified, G47.9 - Sleep disorder, unspecified Vitamin B12 and Folate Today G47.9 - Sleep disorder, unspecified, R53.83 - Other fatigue IRON PROFILE Today G47.9 - Sleep disorder, unspecified, R53.83 - Other fatigue Coding Level of Care Code New Pt Level 3 (37868) Diagnoses Sleep apnea, unspecified type G47.30 Sleep apnea type: unspecified type Sleep disturbances G47.9 Fatigue due to sleep pattern disturbance R53.83; G47.9 Time Spent (min) 30 Sleep Questionnaire Difficulty falling asleep: No Difficulty staying asleep?: Yes Number of arousals: 8 x tosses all night Snoring: Yes Witnessed apneas: Yes Gasping arousals: Yes Nocturia: Yes (2-3x) GERD: No Vivid dreams: No Acting out dreams: No Abnormal behavior in sleep: No Abnormal movements in sleep: Yes Morning headaches: No Excessive daytime sleepiness: Yes Daytime naps: No Restless legs: Yes (bilaterally feet numbness/ tingling) Hallucinations: No Sleep paralysis: No Drop attacks: No Sleep Study: No CPAP: No
[2024-04-14 15:00] VITALS: BMI 33.6
== END 2024-04-14 15:43 | disposition home or self-care (01) ==
PROVIDERS: PCP Family Medicine; Visit Provider Physician Assistant Medical
DX: G47.30 Sleep apnea, unspecified (principal); G47.9 Sleep disorder, unspecified; R53.83 Other fatigue
CPT/HCPCS: 99203

== ENCOUNTER 2024-05-02 15:50 | Outpatient (AMB) | payer OTHER, SELFPAY ==
--- NOTE | 2024-05-02 16:08 | MHC.PC.OV ---
Vital Signs 05/02/24 16:13 Height 5 ft 11 in Weight 240 lb BMI 33.5 BP 126/70 Blood Pressure Location Lt brachial Position Sitting Respiration 14 Pulse 97 Pulse Source Pulse Oximeter Temp 98.9 F Temp Source Oral Pulse Oximetry (%) 98 Oxygen Delivery Method Room Air Intake Visit Reasons: CPE with f/u labs and health maint. Intake Note: cpe Allergies cat dander [CAT] Allergy (Mild, Verified 05/02/24 16:09) FACIAL SWELLING WATERY EYES dog dander [DOG] Allergy (Mild, Verified 05/02/24 16:09) FACIAL SWELLING, WATERY EYES Medication List - Last Reconciled 05/02/24 by Juan Canales MD metformin 500 mg PO BID 90 days sulfamethoxazole-trimethoprim 800-160 mg (Bactrim DS) 1 tab PO Q12H 10 days tirzepatide (Mounjaro) 2.5 mg (0.5 mL) subcut QWEEK 28 days Tobacco use date assessed: 05/02/24 Dental Screening Dental Screen Date: 05/02/24 Did you have a dental visit in the last 12 months?: No Did you have a dental problem in the last 6 months where you did not have access to dental care?: No Was dental information given to patient?: Patient has dentist HPI CPE with f/u labs and health maint. HPI Details 39 y/o male presents for a CPE with f/u llabs and health maintenance. Continued his metformin and prescribed Mounjaro for his diabetes. Labs drawn 04/13/24. Reviewed labs with pt. Last A1c 04/04/24 9.3%. Triglycerides 94. TC 159. LDL 105. HDL low at 36. A1c today 05/02/24 is 8.1%. Ongoing complaints of skin abscess. Has complaints of ?ear infection with difficulty hearing. He notes he may have recurrent ear infections [facility] Medical History Uncontrolled diabetes mellitus with hyperglycemia Cigarette smoker Hypertension Type 2 diabetes mellitus Surgical History Hx of tonsillectomy Social History Household Members: Spouse and Children Housing: Apartment Do you presently have visiting nurse or other home services: No Alcohol intake: current Alcohol intake frequency: does not drink Patient Tobacco Use Status: Current everyday Tobacco user Tobacco use type: Cigarette Cigarettes Per Day: 10 Years Smoked: 16 e-Cigarette/Vaping Use: Never Used Second Hand Smoke Exposure: No Substance Use Type: Marijuana service: No Current occupational status: employed 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 1. Little interest or pleasure in doing things: not at all 2. Feeling down, depressed, or hopeless: not at all 3. Trouble falling or staying asleep, or sleeping too much: not at all 4. Feeling tired or having little energy: several days 5. Poor appetite or overeating: several days 6. Feeling bad about yourself - or that you are a failure or have let yourself or your family down: not at all 7. Trouble concentrating on things, such as reading the newspaper or watching television: not at all 8. Moving or speaking so slowly that other people could have noticed. Or the opposite - being so fidgety or restless that you have been moving around a lot more than usual: not at all 9. Thoughts that you would be better off or of hurting yourself in some way: not at all Total score: 2 Source: Developed by Drs. Harrison Ramírez, Kristine Cox, Jose Alfredo Zaldivar and colleagues, with an educational lorenzo from [employer] Thrive Questionnaire Date Thrive assessed: 05/02/24 I am a: Patient What is your living situation today?: I have a steady place to live Within the past 12 months, did the food you bought not last and you didn't have the money to get more?: Never true Within the past 12 months, did you worry whether your food would run out before you got money to buy more?: Never true Do you have trouble paying for medicines?: No Do you have trouble getting transportation to medical appointments?: No Do you have trouble paying your heating and electricity bill?: No Do you have trouble taking care of your child, family member or friend?: No Do you have trouble with day-to-day activities such as bathing, preparing meals, shopping, managing finances, etc.?: No Are you currently unemployed and looking for a job?: No Are you interested in more education?: No Please select the resources that you would like help with: None Currently or been in a relationship where the following occur: No concerns reported THRIVE Score: 0 AUDIT C Alcohol Use Questionnaire (AUDIT-C) 1. How often do you have a drink containing alcohol?: Never Total Score: 0 AMANDA-7 AMB Questionnaire AMANDA-7 Date AMANDA - 7 assessed: 05/02/24 Feeling nervous, anxious, or on edge: 0 = Not at all Not being able to stop or control worryin = Not at all Worrying too much about different things: 0 = Not at all Trouble relaxin = Not at all Being so restless that it is hard to sit still: 0 = Not at all Becoming easily annoyed or irritable: 0 = Not at all Feeling afraid as if something awful might happen: 0 = Not at all Total AMANDA-7 score (0-4 normal; 5-9 mild; 10-14 moderate; 15-21 severe): 0 Source: Developed by Drs. Harrison Ramírez, Kristine Cox, Jose Alfredo Zaldivar and colleagues, with an educational lorenzo from [employer] Review of Systems Const Denies chills, Denies fatigue, Denies fever(s), Denies headache(s) and Denies weakness Eyes Denies change in vision ENT Denies dizziness, Reports otalgia, Denies headache(s), Denies hearing loss, Denies nasal congestion, Denies sinus pain, Denies sinus pressure and Denies sore throat Card Denies chest pain, Denies lightheadedness, Denies dyspnea and Denies other (palpitations) Resp Denies cough, Denies dyspnea and Denies wheezing GI Denies abdominal pain, Denies melena, Denies hematochezia, Denies change in bowel habits, Denies dyspepsia and Denies nausea Denies hematuria and Denies dysuria Musc Denies abnormal gait, Denies myalgias, Denies arthralgias, Denies numbness and Denies tingling Skin/Breast Denies rash, Denies unusual bruising and Denies wounds Neuro Denies abnormal gait, Denies dizziness, Denies headache(s), Denies memory loss, Denies numbness, Denies Sensory deficit (Neuro), Denies tingling and Denies weakness Psych Denies anxiety, Denies depression and Denies memory loss Endo Denies cold intolerance, Denies fatigue, Denies heat intolerance, Denies polydipsia and Denies polyuria Deshawn/Lymph Denies easy bleeding and Denies easy bruising Aller/Immun Denies wheezing Physical exam (Primary Care) Vital Signs: Last Vital Signs Temp 98.9 F 05/02/24 16:13 Pulse 97 05/02/24 16:13 Resp 14 05/02/24 16:13 BP 126/70 05/02/24 16:13 Pulse Ox 98 05/02/24 16:13 Oxygen Delivery Method Room Air 05/02/24 16:13 BMI result Body Mass Index 33.5 Tobacco/Smoking Status: Tobacco use Status Tobacco use date assessed 05/02/24 05/02/24 16:18 Patient Tobacco Use Status Current everyday Tobacco 05/02/24 16:18 Tobacco use type Cigarette 05/02/24 16:18 e-Cigarette/Vaping Use Never Used 05/02/24 16:18 PHQ-9: PHQ-9 Score PHQ-9: Total score 2 05/02/24 17:05 Thrive Assessment: Date of Thrive Assessment Date Thrive assessed 05/02/24 05/02/24 16:18 Currently or been in a relationship where the following occur: No concerns reported Const General: no acute distress, well developed, alert and awake Nutritional Appearance: well nourished Orientation/consciousness: patient oriented x3 HENMT Head: Yes normocephalic and Yes atraumatic Ears: hearing grossly normal bilaterally and TM's normal bilaterally General nose exam: Normal external nose present and Normal nares present Mouth: Normal oral and palatal mucosa present and moist mucous membranes Teeth and gingiva: dentition normal Throat: Yes posterior oropharynx normal Eyes General: appearance normal, both eyes and all related structures Pupils: Equal, round and reactive pupils present and Pupil accommodation reflex normal EOM: EOMs intact bilaterally Neck Neck: Yes normal visual inspection, Yes no lymphadenopathy and Yes trachea midline Thyroid: Thyroid normal Carotids: no bruits Lymphatic: no lymphadenopathy noted Chest Chest palpation & inspection: normal inspection of the chest Resp Effort & Inspection: normal respiratory effort Auscultation: clear to auscultation bilaterally Cardio Rate: regular rate Rhythm: regular rhythm Heart sounds: S1 normal heart sound present, S2 normal heart sound present, no gallops, no murmurs and no rubs Bruits: no abdominal aortic bruits and no carotid bruits GI Palpation (GI): No Abdominal aortic bruit present, Soft to palpation, nontender, No hepatosplenomegaly present and No Rebound tenderness present Auscultation: normal bowel sounds General: Yes no CVA tenderness Back/Spine/Pelvis Back: no CVA tenderness Cervical Spine: cervical ROM normal and No Cervical spine tenderness Thoracic/Lumbar Spine: thoraco-lumbar ROM normal, No pain with thoraco-lumbar ROM, No thoracic spinal tenderness and No lumbar spinal tenderness Skin Other: Several large abscesses on his skin in various places, including hips, legs and back Lesions: no lesions Rashes: no rashes Trauma: no lacerations or abrasions Wounds: no wounds Nails: normal Neuro General: patient oriented x3 Cranial nerves: Yes Equal, round and reactive pupils present Cognition (Neuro): normal cognition Gait exam (Neuro): Normal gait present Motor exam (neuro): 5/5 motor strength present throughout Sensory Exam: No Sensory deficit (Neuro) Deep tendon reflexes (DTR's): Right patellar reflex intensity grade: 2+ and Left patellar reflex intensity grade: 2+ Extrem General: Yes normal to inspection and No edema Psych Appearance: grossly normal Affect: normal affect Attitude: cooperative Thought process: Normal thought process present Coding Level of Care Code Est Pt Prev Care 18-39y(50160) Diagnoses Adult general medical exam Z00.00 Hypertension I10 Type 2 diabetes mellitus E11.9 Low HDL (under 40) E78.6 Skin abscess L02.91 Otitis media H66.90 Overgrown nail L60.2 Assessment & Plan Assessment & Plan (1) Adult general medical exam: Code(s): Z00.00 - Encounter for general adult medical examination without abnormal findings Category: Medical Plan: 39-year-old?male?presents?for?complete?physical?exam Encouraged?healthy?diet?with?active?lifestyle?and?plenty?of?exercise (2) Hypertension: Code(s): I10 - Essential (primary) hypertension Category: Medical Plan: Blood?pressure?is?controlled.??Goal?is?less?than?140/90 Continue?to?work?at?a?diet?low?in?salt/sodium Encouraged?exercise?and?weight?loss (3) Type 2 diabetes mellitus: Code(s): E11.9 - Type 2 diabetes mellitus without complications Category: Medical Plan: A1c?is?8.1%.??This?continues?to?improve.??He?has?only?just?started?Mounjaro?recently. Goal?is?less?than?7.0% Continue?current?medication?regimen Work?at?diet?exercise?and?weight?loss Will?follow (4) Low HDL (under 40): Code(s): E78.6 - Lipoprotein deficiency Category: Medical Plan: Work?at?exercise?watch?saturated?fats?and?cholesterol (5) Skin abscess: Code(s): L02.91 - Cutaneous abscess, unspecified Category: Medical Plan: Multiple?skin?abscesses Has?used?cephalexin?in?the?past.??Will?switch?to?Bactrim. Continue?warm?compresses?and?Hibiclens Referred?to?dermatology (6) Otitis media: Code(s): H66.90 - Otitis media, unspecified, unspecified ear Category: Medical Plan: Right?otitis?media And?recurrent?ear?infections. Starting?Bactrim Referred?to?ENT (7) Overgrown nail: Code(s): L60.2 - Onychogryphosis Category: Medical Plan: Referred?to?Podiatry?for?diabetes?and?overgrown?nails Orders: Orders Comprehensive Almo. Panel Fast Today E11.40 - Type 2 diabetes mellitus with diabetic neuropathy, unspecified, Z00.00 - Encounter for general adult medical examination without abnormal findings Microalbumin, Random (w Creat) Today E11.40 - Type 2 diabetes mellitus with diabetic neuropathy, unspecified, I10 - Essential (primary) hypertension Lipid Panel Today E78.6 - Lipoprotein deficiency, Z00.00 - Encounter for general adult medical examination without abnormal findings Referrals Dermatology Referral L02.91 - Cutaneous abscess, unspecified Ear/Nose/Throat Referral H66.90 - Otitis media, unspecified, unspecified ear, Z86.69 - Personal history of other diseases of the nervous system and sense organs Podiatry Referral E11.40 - Type 2 diabetes mellitus with diabetic neuropathy, unspecified, L60.2 - Onychogryphosis Medications: New sulfamethoxazole-trimethoprim 800-160 mg (Bactrim DS) 1 tab PO Q12H 10 days 20 tabs 0RF
[2024-05-02 16:13] VITALS: BP 126/70; PULSE 97; RESP 14; TEMP 37.2; O2SAT 98; BMI 33.5
== END 2024-05-02 17:18 | disposition home or self-care (01) ==
PROVIDERS: PCP Family Medicine; Visit Provider Family Medicine
DX: Z00.00 Encounter for general adult medical examination without abnormal findings (principal); I10 Essential (primary) hypertension; E11.9 Type 2 diabetes mellitus without complications; E78.6 Lipoprotein deficiency; L02.91 Cutaneous abscess, unspecified; H66.90 Otitis media, unspecified, unspecified ear; L60.2 Onychogryphosis

== ENCOUNTER → 2024-05-02 15:50 | Outpatient (BNVA) | payer OTHER, SELFPAY | PROVIDERS: PCP Family Medicine; Visit Provider Family Medicine | DX: Z00.01 Encounter for general adult medical examination with abnormal findings (principal); I10 Essential (primary) hypertension; E11.9 Type 2 diabetes mellitus without complications; E78.6 Lipoprotein deficiency; L02.91 Cutaneous abscess, unspecified; H66.91 Otitis media, unspecified, right ear; L60.2 Onychogryphosis | CPT/HCPCS: 83036; 96127 ==

== ENCOUNTER → 2024-05-24 15:47 | Outpatient (REF) | payer OTHER, SELFPAY ==
--- OUTSIDE RECORDS SUMMARY | 2024-05-24 16:29 | XMS_ITS | Clinical Summary ---
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 Name Role Phone Unavailable Primary Care Provider Unavailabl e Social History Tobacco Use Types Packs/Day Years Used Date Smoking Tobacco: Never Assessed Sex and Gender Information Value Date Recorded Sex Assigned at Not on file Gender Identity Not on file Sexual Orientation Not on file Plan of Treatment Health Maintenance Due Date Last Done Comments DTaP,Tdap,and Td Vaccines (1 - Tdap) 2006 Hepatitis B Vaccines (1 of 3 - 19+ 3-dose series) 2006 Cholesterol Screening (Lipid Panel) 03/18/2022 Depression Screening 03/18/2022 HIV Screening 03/18/2022 Hepatitis C Screening 03/18/2022 Social Influencers of Health Screening 03/18/2022 COVID-19 Vaccine ( - 2023-2 5 season) 2023 Influenza Vaccine (#1) 2023 HIB Vaccines Aged Out No longer eligi ble based on patient's age to complete this topic HPV Vaccines Aged Out No longer eligi ble based on patient's age to complete this topic Hepatitis A Vaccines Aged Out No long er eligible based on patient's age to complete this topic IPV Vaccines Aged Out No longer eligi ble based on patient's age to complete this topic MMR Vaccines Aged Out No longer eligi ble based on patient's age to complete this topic Meningococcal ACWY Vaccine Aged Out N o longer eligible based on patient's age to complete this topic Pneumococcal Vaccine: Pediat rics (0 to 5 Years) and At-Risk Patients (6 to 64 Years) Aged Out No longer eligible b ased on patient's age to complete this topic RSV Immunization Patients Un ty 20 months Aged Out No longer eligible b ased on patient's age to complete this topic Varicella Vaccines Aged Out No longer eligible based on patient's age to complete this topic
== END ==
LOC: HO.SL 15:47
PROVIDERS: PCP Family Medicine; Visit Provider Physician Assistant Medical
DX: G47.9 Sleep disorder, unspecified (principal); G47.30 Sleep apnea, unspecified; R06.83 Snoring; R40.0 Somnolence
CPT/HCPCS: 95806

== ENCOUNTER → 2024-05-24 15:55 | Outpatient (BNV) | payer OTHER, SELFPAY | PROVIDERS: PCP Family Medicine; Visit Provider Psychiatry & Neurology Neurology | DX: G47.33 Obstructive sleep apnea (adult) (pediatric) (principal) | CPT/HCPCS: 95806 ==

== ENCOUNTER 2024-06-02 09:38 | Outpatient (REF) | payer OTHER, SELFPAY ==
--- OUTSIDE RECORDS SUMMARY | 2024-06-02 10:07 | XMS_ITS | Clinical Summary ---
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 Name Role Phone Unavailable Primary Care Provider Unavailabl e Social History Tobacco Use Types Packs/Day Years Used Date Smoking Tobacco: Never Assessed Sex and Gender Information Value Date Recorded Sex Assigned at Not on file Legal Sex Male 3:24 PM EST Gender Identity Not on file Sexual Orientation Not on file Plan of Treatment Health Maintenance Due Date Last Done Comments DTaP,Tdap,and Td Vaccines (1 - Tdap) 2006 Hepatitis B Vaccines (1 of 3 - 19+ 3-dose series) 2006 Cholesterol Screening (Lipid Panel) 03/18/2022 Depression Screening 03/18/2022 HIV Screening 03/18/2022 Hepatitis C Screening 03/18/2022 Social Influencers of Health Screening 03/18/2022 COVID-19 Vaccine (2023-2 5 season) 2023 Influenza Vaccine (#1) 2023 [...] patient's age to complete this topic Meningococcal B Vacine Aged Out No lo nger eligible based on patient's age to complete [...]
[2024-06-02 11:52] LABS: Alanine Aminotransferase 37 U/L (0-40); Albumin Level 4.5 g/dL (3.5-5.0); Alkaline Phosphatase 72 U/L (39-117); Anion Gap 11 (12-20); Aspartate Amino Transferase 35 U/L (5-37); Bilirubin Total 0.6 mg/dL (0.0-1.0); Blood Urea Nitrogen 14 mg/dL (9-16); Calcium 9.7 mg/dL (8.4-10.2); Carbon Dioxide 27 mmol/L (22-29); Chloride 104 mmol/L (96-108); Cholesterol 167 mg/dL (<200); Estimated Glomerular Filt Rate > 60; Glucose Fasting 142 mg/dL (60-99); HDL Cholesterol 40 mg/dL (>40); Iron 88 mcg/dL (45-160); LDL Cholesterol Calculated 108 mg/dL (<100); Percent Iron Saturation 32 % (15-50); Potassium 4.2 mmol/L (3.3-5.1); Sodium 138 mmol/L (135-145); Total Iron Binding Capacity 273 mcg/dL (228-428); Total Protein 8.2 g/dL (6.5-8.0); Triglycerides 96 mg/dL (<150); Unsaturated Iron Binding 185 ug/dL
[2024-06-02 12:00] LABS: Folate 7.7 ng/mL (> or = 4.0); Vitamin B12 522 pg/mL (200-900)
[2024-06-02 12:15] LABS: Vitamin D 25-OH Total 43.2 ng/mL (>30)
[2024-06-06 11:19] LABS: Methylmalonic Acid 92 nmol/L (55-335)
== END 2024-06-02 09:39 | disposition home or self-care (01) ==
LOC: HO.WFDLDS 09:38
PROVIDERS: Referring Provider Physician Assistant Medical; Visit Provider Family Medicine
DX: Z00.00 Encounter for general adult medical examination without abnormal findings (principal); E11.40 Type 2 diabetes mellitus with diabetic neuropathy, unspecified; E78.6 Lipoprotein deficiency; G47.9 Sleep disorder, unspecified; R53.83 Other fatigue
CPT/HCPCS: 36415; 80053; 80061; 82306; 82607; 82746; 83540; 83921

== ENCOUNTER 2024-07-12 14:46 | Outpatient (AMB) | payer OTHER, SELFPAY ==
[2024-07-12 14:50] VITALS: BP 122/80; PULSE 101; O2SAT 97; BMI 33.1
--- NOTE | 2024-07-12 14:50 | A.OFFVIS_ITS ---
Vital Signs 07/12/24 14:50 Height 5 ft 11 in Weight 237 lb BMI 33.1 BP 122/80 Blood Pressure Location Lt brachial Position Sitting Pulse 101 H Pulse Source Pulse Oximeter Pulse Oximetry (%) 97 Oxygen Delivery Method Room Air Intake Visit Reasons: 3 mo follow up Intake Note: Patient presents for 3 month follow up LUPE. Sleep study in chart and done on 05/24/24. Allergies cat dander [CAT] Allergy (Mild, Verified 07/12/24 14:54) FACIAL SWELLING WATERY EYES dog dander [DOG] Allergy (Mild, Verified 07/12/24 14:54) FACIAL SWELLING, WATERY EYES HPI Comments Details: 39 year old male referred to us by PCP Dr. Canales, for sleep evaluation. 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 His notices he is snoring loudly, gasping for air, tossing, turning a lot, sleeps on his back predominantly uses a cervical neck my pillow and a body pillow, but tosses and turns a lot. He never has trouble falling asleep, he has trouble staying asleep through the night and takes a 1mg Melatonin gummy. He is learning to eat better with a dining service worker teaching him better food choices as his A1c is now 8.4, he is on Monjarou 2.5mg subcut weekly, he feels like weight loss is slow. He has improved his water intake. He has a headache now and then over l. eye, with a sharp pain, advil otc. helps, recently it lasted 2 days. He denies dizziness balance and gait issues. He does have light headedness when he gets up from reading the water meter and squatting, BP is good today Pulse is high at 101. RLS: He has bilateral foot pain with numbness, tingling, pins and needles which go away when he shakes his legs, denies cramps or spasms and it does not keep him up at night. His mood is good and memory is stable. He is no longer smoking nicotine, now he started the Zyn pouches. [facility] Medical History Uncontrolled diabetes mellitus with hyperglycemia Cigarette smoker Hypertension Type 2 diabetes mellitus Surgical History Hx of tonsillectomy Social History Household Members: Spouse and Children Housing: Apartment Do you presently have visiting nurse or other home services: No Alcohol intake: current Alcohol intake frequency: does not drink Patient Tobacco Use Status: Current everyday Tobacco user Tobacco use type: Cigarette Cigarettes Per Day: 10 Years Smoked: 16 e-Cigarette/Vaping Use: Never Used Second Hand Smoke Exposure: No Substance Use Type: Marijuana service: No Current occupational status: employed 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 Current occupational exposures/hazards: No Cognitive needs: No Hearing needs: Yes Vision needs: No Physical Exam Vital Signs: Last Vital Signs Pulse 101 H 07/12/24 14:50 BP 122/80 07/12/24 14:50 Pulse Ox 97 07/12/24 14:50 Oxygen Delivery Method Room Air 07/12/24 14:50 BMI result Body Mass Index 33.1 Const General: cooperative, comfortable and no acute distress Orientation/consciousness: patient oriented x3 HEENT Face and sinus: Yes normal facial exam and Yes face symmetric Teeth and gingiva: other ([place] score is 4) Eyes Pupils: Equal, round and reactive pupils present Neck Neck: Yes full ROM and Yes supple Resp Effort & Inspection: normal respiratory effort and able to speak in complete sentences Neuro General: patient oriented x3 and moves all extremities Cranial nerves: Yes Facial sensation intact/muscles of mastication intact, Yes Equal, round and reactive pupils present, Yes Normal accommodation reflex present, Yes Bilaterally intact EOM present, Yes Nystagmus not present, Yes Normal facial strength present, Yes Midline tongue present, Yes Ability to bilaterally rotate head present and Yes Ability to bilaterally elevate shoulders present Gait exam (Neuro): Normal gait present Motor exam (neuro): 5/5 motor strength present throughout and Normal motor muscle tone present throughout Deep tendon reflexes (DTR's): Right triceps reflex intensity grade: 2+, Left triceps reflex intensity grade: 2+, Rt Biceps (C5, C6): 2+, Left biceps reflex intensity grade: 2+, Right brachioradialis reflex intensity grade: 2+, Left brachioradialis reflex intensity grade: 2+, Right patellar reflex intensity grade: 2+ and Left patellar reflex intensity grade: 2+ Results Reviewed Results Reviewed: HST completed 2024 AHI is 5 and oxygen Stephane to 77% : Recommend positional therapy and weight loss, oral appliance. Assessment & Plan Assessment & Plan (1) Sleep apnea: Comment: AHI 5, oxygen Stephane 77% Code(s): G47.30 - Sleep apnea, unspecified Category: Medical Qualifiers: Sleep apnea type: unspecified type Qualified Code(s): G47.30 - Sleep apnea, unspecified (2) Cluster headaches: Code(s): G44.009 - Cluster headache syndrome, unspecified, not intractable Category: Medical Qualifiers: Headache chronicity pattern: unspecified pattern Intractability: intractable Qualified Code(s): G44.001 - Cluster headache syndrome, unspecified, intractable Plan Sleep disturbances, HST was completed AHI was 5 and oxygen Stephane to 77%, he has very mild sleep apnea. Fatigue reviewed lab and HDL was low, A1c high, 8.4, and Fasting Glucose 145. Recommended Mouth Guard Somno guard and weight loss along with positional therapy. Cluster Headaches L. sided will monitor. Weight loss, he is on Monjarou 2.5mg subcut once a week, will monitor A1c, as it was 8.4 today. Orders: Referrals Dentistry Referral G47.30 - Sleep apnea, unspecified Patient Instructions: Sleep Hygiene provided: set a scheduled bedtime and wake time to help regulate the circadian rhythm and balance the release of pituitary hormones. Sleep in a dark room, temperatures below 68 degrees, and no devices n bed. Limit caffeinated products 6 hours prior to bed, and limit fluids 2-4 hours prior to bed. Gentle night yoga, diffusing essential oils, and playing soft music can be relaxing. Cluster Headaches: Monitor onset, timing, frequency and severity, will f/u at next visit. RLS: will f/u at next visit. Coding Level of Care Code Est Pt Level 4 (68838) Diagnoses Sleep apnea, unspecified type G47.30 Sleep apnea type: unspecified type Intractable cluster headache syndrome, unspecified chronicity pattern G44.001 Headache chronicity pattern: unspecified pattern Intractability: intractable Time Spent (min) 20
--- OUTSIDE RECORDS SUMMARY | 2024-07-12 17:44 | XMS_ITS | Clinical Summary ---
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
== END 2024-07-12 15:43 | disposition home or self-care (01) ==
LOC: HO.HSMS 14:47
PROVIDERS: PCP Family Medicine; Visit Provider Physician Assistant Medical
DX: G47.30 Sleep apnea, unspecified (principal); G44.001 Cluster headache syndrome, unspecified, intractable
CPT/HCPCS: 99214

== ENCOUNTER 2024-08-01 10:34 | Outpatient (AMB) | payer OTHER, SELFPAY ==
--- NOTE | 2024-08-01 10:54 | A.OFFPC_ITS ---
Vital Signs 08/01/24 11:01 Height 5 ft 11 in Weight 238 lb 4 oz BMI 33.2 BP 120/68 Blood Pressure Location Rt brachial Position Sitting Respiration 16 Pulse 89 Pulse Source Pulse Oximeter Temp 98.6 F Temp Source Oral Pulse Oximetry (%) 97 Oxygen Delivery Method Room Air Intake Visit Reasons: f/u HLD, diabetes Intake Note: patient is schedule to follolw up on labs and dm Blueprint Maker Required: No Allergies cat dander [CAT] Allergy (Mild, Verified 08/01/24 10:59) FACIAL SWELLING WATERY EYES dog dander [DOG] Allergy (Mild, Verified 08/01/24 10:59) FACIAL SWELLING, WATERY EYES Medication List - Last Reconciled 08/01/24 by Juan Canales MD tirzepatide 5 mg (0.5 mL) subcut QWEEK 28 days Tobacco use date assessed: 08/01/24 Dental Screening Dental Screen Date: 05/02/24 HPI f/u HLD, diabetes HPI Details 39 y/o male presents to f/u D, diabete s. A1c 6.7%. He is on Mounjaro 2.5mg. Has discontinued his metformin 500mg b.i.d. Blood pressure today 120/68, 89p. HPI Comments History of Present Illness Details Documentation assistance for Juan Canales MD, was provided by Sterling Blue, Road Engineer on 08/01/2024 at 11:38 AM CURTIS. I, Dr. Canales, have read, observed, and verified documentation. [facility], [facility] Medical History Uncontrolled diabetes mellitus with hyperglycemia Cigarette smoker Hypertension Type 2 diabetes mellitus Surgical History Hx of tonsillectomy Social History Household Members: Spouse and Children Housing: Apartment Do you presently have visiting nurse or other home services: No Alcohol intake: current Alcohol intake frequency: does not drink Patient Tobacco Use Status: Current everyday Tobacco user Tobacco use type: Cigarette Cigarettes Per Day: 10 Years Smoked: 16 e-Cigarette/Vaping Use: Never Used Second Hand Smoke Exposure: No Substance Use Type: Marijuana service: No Current occupational status: employed 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 Harrison Ramírez, Kristine Cox, Jose Alfredo Zaldivar and colleagues, with an educational lorenzo from [email or web address]. Review of Systems Const Denies chills, Denies fatigue, Denies fever(s), Denies headache(s) and Denies weakness ENT Denies dizziness and Denies headache(s) Card Denies dyspnea Resp Denies cough, Denies dyspnea, Denies wheezing and Denies other (shortness of breath) Musc Denies numbness and Denies tingling Neuro Denies dizziness, Denies headache(s), Denies numbness, Denies tingling and Denies weakness Psych Denies anxiety and Denies depression Endo Denies fatigue Aller/Immun Denies wheezing Physical exam (Primary Care) Vital Signs: Last Vital Signs Temp 98.6 F 08/01/24 11:01 Pulse 89 08/01/24 11:01 Resp 16 08/01/24 11:01 BP 120/68 08/01/24 11:01 Pulse Ox 97 08/01/24 11:01 Oxygen Delivery Method Room Air 08/01/24 11:01 BMI result Body Mass Index 33.2 Tobacco/Smoking Status: Tobacco use Status Tobacco use date assessed 08/01/24 08/01/24 11:02 Patient Tobacco Use Status Current everyday Tobacco 08/01/24 10:55 Tobacco use type Cigarette 08/01/24 10:55 e-Cigarette/Vaping Use Never Used 08/01/24 10:55 Thrive Assessment: Date of Thrive Assessment Date Thrive assessed 05/02/24 08/01/24 10:55 Const General: well developed; No acute distress Nutritional Appearance: well nourished Orientation/consciousness: patient oriented x3 HENMT Head: Yes normocephalic and Yes atraumatic Eyes General: appearance normal, both eyes and all related structures Pupils: Equal, round and reactive pupils present EOM: EOMs intact bilaterally Resp Effort & Inspection: normal respiratory effort Auscultation: clear to auscultation bilaterally Cardio Rate: regular rate Rhythm: regular rhythm Heart sounds: S1 normal heart sound present, S2 normal heart sound present, no gallops, no murmurs and no rubs Neuro General: patient oriented x3 and gait normal Cranial nerves: Yes Equal, round and reactive pupils present Psych Affect: normal affect Coding Level of Care Code Est Pt Level 4 (93921) Diagnoses Hypertension I10 Type 2 diabetes mellitus E11.9 Skin abscess L02.91 Elevated LDL cholesterol level E78.00 Assessment & Plan Assessment & Plan (1) Hypertension: Code(s): I10 - Essential (primary) hypertension Category: Medical Plan: Blood?pressure?is?controlled.??He?is?medication Will?continue?monitor Continue?exercise?and?weight?loss (2) Type 2 diabetes mellitus: Code(s): E11.9 - Type 2 diabetes mellitus without complications Category: Medical Plan: A1c 6.7%. A1c?now?at?goal?of?less?than?7.0% Increasing?Mounjaro?to?help?with?ongoing?weight?loss. (3) Skin abscess: Code(s): L02.91 - Cutaneous abscess, unspecified Category: Medical Plan: Recurrence?furuncles?abscesses?at?baez?line?and?hairline?at?nape?of?neck. Warm?compresses Will?give?him?a?script?for?cephalexin He?was?referred?to?[facility]?but?has?not?heard?back?from?them?yet.??I ?gave?them?the?phone?number. (4) Elevated LDL cholesterol level: Code(s): E78.00 - Pure hypercholesterolemia, unspecified Category: Medical Plan: Encouraged?a?diet?lower?in?saturated?fats?and?cholesterol Continue?weight?loss Will?recheck?in?a?few months Orders: Orders Comprehensive [place]. Panel Fast Today E78.00 - Pure hypercholesterolemia, unspecified, Z00.00 - Encounter for general adult medical examination without abnormal findings Lipid Panel Today E78.00 - Pure hypercholesterolemia, unspecified, Z00.00 - Encounter for general adult medical examination without abnormal findings Referrals Ophthalmology Referral E11.40 - Type 2 diabetes mellitus with diabetic neuropathy, unspecified Medications: New cephalexin 500 mg PO Q12H 10 days 20 caps 0RF L02.91 - Cutaneous abscess, unspecified Changed From tirzepatide (Mounjaro) for 4 weeks 2.5 mg (0.5 mL) subcut QWEEK 28 days 2 mL 3RF E11.40 - Type 2 diabetes mellitus with diabetic neuropathy, unspecified To tirzepatide for 4 weeks 5 mg (0.5 mL) subcut QWEEK 28 days 2 mL 3RF E11.40 - Type 2 diabetes mellitus with diabetic neuropathy, unspecified
[2024-08-01 11:01] VITALS: BP 120/68; PULSE 89; RESP 16; TEMP 37; O2SAT 97; BMI 33.2
--- OUTSIDE RECORDS SUMMARY | 2024-08-01 12:41 | XMS_ITS | Clinical Summary ---
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
== END 2024-08-01 11:39 | disposition home or self-care (01) ==
LOC: HO.HMCFM 10:34
PROVIDERS: PCP Family Medicine; Visit Provider Family Medicine
DX: I10 Essential (primary) hypertension (principal); E11.40 Type 2 diabetes mellitus with diabetic neuropathy, unspecified; L02.91 Cutaneous abscess, unspecified; E78.00 Pure hypercholesterolemia, unspecified

== ENCOUNTER → 2024-08-01 10:34 | Outpatient (BNVA) | payer OTHER, SELFPAY | PROVIDERS: PCP Family Medicine; Visit Provider Family Medicine | DX: I10 Essential (primary) hypertension (principal); E11.9 Type 2 diabetes mellitus without complications; L02.11 Cutaneous abscess of neck; E78.00 Pure hypercholesterolemia, unspecified | CPT/HCPCS: 83036 ==

== ENCOUNTER 2024-10-19 03:55 | Emergency (ER) | payer OTHER, SELFPAY ==
--- NOTE | ~2024-10-19 | CT_ITS ---
CLINICAL HISTORY: neck trauma CT cervical spine without contrast Comparison: None provided Findings: Normal vertebral body alignment. No significant degenerative change. No acute fractures or dislocations. Visualized mastoid air cells are partially opacified. There is soft tissue edema posteriorly, sagittal image 49 No consolidation or effusion at the lung apices. IMPRESSION: No fracture or malalignment. Incidental findings. This document has been electronically signed by: Luis Blanton MD on 10/19/2024 07:19:26
[2024-10-19 03:58] VITALS: BP 142/102; PULSE 100; RESP 17; TEMP 36.6; O2SAT 99; BMI 31.8
--- NOTE | 2024-10-19 04:51 | ED.NECK ---
HPI - Neck Pain/Injury General Chief Complaint: Neck Pain/Injury Stated Complaint: Neck pain and runs down left side of body Time Seen by Provider: 10/19/24 04:44 Source: patient and old records reviewed Mode of arrival: ambulatory Limitations: no limitations History of Present Illness ED Provider: JERAD LARSON Narrative: 39 yo male with PMH of DM, sleep apnea, HTN, not on blood thinners here with c/o swimming in his pool yesterday and his 13 year old daughter who is big for her age landed on his L trap/neck area. He notes he has severe pain in the L lateral neck but no numbness/weakness. He feels the pain radiates down to his trapezius. He has no numbness, weakness, loss of control of bowel or bladder. He has no prior neck surgery. He took leftover 15mg of morphine he had at home but nothing helped. MD complaint: neck pain and neck injury Onset (ago): day(s) (wednesday ) Place: home Radiation: left lateral Severity: severe Quality: sharp Duration: constant Relieving factors: immobilization Exacerbating factors: movement of neck Context: direct blow Associated symptoms: none Treatments prior to arrival: prescription analgesic Related Data Previous Rx's ?Medication ?Instructions ?Recorded cephalexin 500 mg capsule 500 mg PO Q12H 10 days #20 caps 08/01/24 tirzepatide 5 mg/0.5 mL 5 mg (0.5 mL) subcut QWEEK 28 days 08/01/24 subcutaneous pen injector #2 mL diazepam 5 mg tablet (Valium) 5 mg PO TID PRN muscle spasm #10 10/19/24 tabs Allergies Allergy/AdvReac Type Severity Reaction Status Date / Time cat dander (CAT) Allergy Mild FACIAL Verified 10/19/24 04:00 SWELLING WATERY EYES dog dander (DOG) Allergy Mild FACIAL Verified 10/19/24 04:00 SWELLING, WATERY EYES Review of Systems Review of Systems: Constitutional : No Weight loss, No Fever, No Chills, ENT/Mouth : No Hearing loss, No Ear Pain, No Nasal Congestion, No Sinus Pain, No Hoarseness, No sore throat, No Rhinorrhea, No Swallowing Difficulty Cardiovascular : No Chest Pain, No SOB Respiratory : No Cough, No Dyspnea Gastrointestinal : No Nausea, No Vomiting, No Diarrhea, No abdominal Pain, No Hematochezia, No Melena Genitourinary : No Dysuria, No Urinary Frequency, No Hematuria, No Urinary Incontinence, Musculoskeletal : positive neck pain Skin : No Skin Lesions, No rash Neuro : No Weakness, No Numbness, No Paresthesias, no loss of bowel or bladder incontinence, no saddle anesthesia Yes all other systems are reviewed and are negative [facility] Past Medical History Attestation statement: The following information was validated with the patient. Source: old records reviewed Medical History Uncontrolled diabetes mellitus with hyperglycemia Cigarette smoker Hypertension Type 2 diabetes mellitus Surgical History Hx of tonsillectomy Social History Social History Household Members: Spouse and Children Housing: Apartment Do you presently have visiting nurse or other home services: No Alcohol intake: current Alcohol intake frequency: does not drink Patient Tobacco Use Status: Current everyday Tobacco user Tobacco use type: Cigarette Cigarettes Per Day: 10 Years Smoked: 16 Smoked in Last 30 Days: Yes e-Cigarette/Vaping Use: Never Used Second Hand Smoke Exposure: No Use of substances other than those prescribed or required for medical reasons: Yes Substance Use Type: Marijuana Advance Directives: No Advance Directives Information Provided: Yes Do you have a plan to hurt others: No Plan service: No Current occupational status: employed 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 Oriented X3. No acute distress. Eyes: Pupils equal, round and reactive to light. ENT: Pharynx normal. Neck: R side of neck normal, L lateral neck spasm and ttp not step offs, distal UE and LE intact, no midline ttp CVS: Pulses normal. Respiratory: No respiratory distress. Abdomen: Soft and nontender. Skin: Skin warm and dry. Normal skin color. Extremities: No lower extremity edema. Neuro: Oriented X 3. No motor deficit. No sensory deficit. Medications Administered Discontinued Medications Generic Name Dose Route Start Last Admin Trade Name Nikita PRN Reason Stop Dose Admin Diazepam 5 mg 10/19/24 04:54 10/19/24 05:06 Diazepam 5 Mg Tablet PO 10/19/24 04:55 5 mg ONCE ONE Administration Hydromorphone HCl 2 mg 10/19/24 05:07 10/19/24 06:14 Hydromorphone Hcl 2 Mg/Ml Vial IM 10/19/24 05:08 2 mg ONCE ONE Administration Protocol Medical Decision Making Medical Decision Making MDM Narrative: 39 yo male with PMH of DM, sleep apnea, HTN, not on blood thinners here with c/o L lateral neck pain but no neuro findings in UE and LE - he will get CT scan for trauma and start on muscle relaxers. He has DM so prednisone with his hx of elevated hemoglobin A1c is not indicated. Suspect strain, spasm, radiculopathy Differential Diagnosis Differential Diagnoses: The differential diagnosis associated with the presentation includes sprain, strain, fracture, radiculopathy Admission/Observation Consideration of admission/observation: Escalation of care including admission/observation considered no neuro findings can be managed with pain control and referral to PCP he has likely radicular symptoms but will treat heat/ice valium and defer prednisone given his DM Independent Interpretation I performed an independent interpretation of an: CT Scan Radiology Impression Discussion of test interpretation with radiology: I have reviewed the radiologist's reading. External Record Review External record reviewed: Inpatient record and Outpatient record Prescription Management I considered prescription management with: Other Discharge Plan Discharge Clinical Impression: Neck muscle spasm Neck strain Qualifiers: Encounter type: initial encounter Qualified Code(s): S16.1XXA - Strain of muscle, fascia and tendon at neck level, initial encounter Contusion Qualifiers: Encounter type: initial encounter Contusion area: thoracic wall Front or back of thoracic wall: back Thoracic wall location detail: left Qualified Code(s): S20.222A - Contusion of left back wall of thorax, initial encounter Patient Disposition: Home, Self-Care Instructions: Cervical Strain (ED), Muscle Spasm (ED) Additional Instructions: no broken bones on CT scan but you have a soft tissue contusion in the soft tissues of the neck this will take time to heal return for weakness, numbness, loss of control of your bowel or bladders at this time will start on muscle relaxer - no driving or drinking rest and limit lifting to 10lbs for 2 weeks follow up with your primary care doctor if not better by next week Prescriptions: New diazepam [Valium] 5 mg tablet 5 mg PO TID PRN (Reason: muscle spasm) Qty: 10 0RF Rx Instructions: partial fill is okay No Action tirzepatide 5 mg/0.5 mL pen injector 5 mg subcut QWEEK 28 Days Qty: 2 3RF Rx Instructions: for 4 weeks cephalexin 500 mg capsule 500 mg PO Q12H 10 Days Qty: 20 0RF Stand Alone Forms: Work/School Release Print Language: Israeli
--- OUTSIDE RECORDS SUMMARY | 2024-10-19 05:35 | XMS_ITS | Clinical Summary ---
Author Organization [facility] it Address [address] [place] [address] Care Team Providers Care Banquet Houseperson Name Role Phone Unavailable Primary Care Provider [...]
--- OUTSIDE RECORDS SUMMARY | 2024-10-19 05:35 | XMS_ITS | Patient Health Record ---
[facility] Address [address] [place] [address] Care Team Providers Care Manager Port Name Role Phone Juan Canales MD Primary Care Provider Fab Stevens Unavailable [phone] Reason For Referral No Information Encounters Encounter Location Date Provider Diagnosis [facility] [place] [address] [facility] [address] [place] [address] 10/04/2024 Fab Diaz Plan Of Treatment No Information Insurance Providers Payer Name Payer Address Payer Phone Subscriber Number Group Number Insured Name Patient Relationship to Insured Coverage Start Date Coverage End Date [employer] [address] [place] [phone] [id number] Jan Cespedes Self - patient is the insured
[2024-10-19 06:14] VITALS: RESP 18
--- NOTE | 2024-10-19 06:18 | PC.NURSE ---
Pain was still 10/10 even after valium that was given per JUN. PT medicated on L deltoid IM diluadid per JUN order.
[2024-10-19 06:34] VITALS: BP 130/96; PULSE 87; RESP 18; TEMP 36.6; O2SAT 97
[2024-10-19 06:36] VITALS: BP 130/96; PULSE 87; RESP 16; TEMP 36.7; O2SAT 97
[2024-10-19 07:36] VITALS: BP 130/96; PULSE 87; RESP 16; TEMP 36.7; O2SAT 97
== END 2024-10-19 07:37 | disposition home or self-care (01) ==
PROVIDERS: Emergency Provider Emergency Medicine
DX: S16.1XXA Strain of muscle, fascia and tendon at neck level, initial encounter (principal); S20.222A Contusion of left back wall of thorax, initial encounter; M54.2 Cervicalgia; X58.XXXA Exposure to other specified factors, initial encounter; Y93.9 Activity, unspecified; Y92.9 Unspecified place or not applicable; Y99.8 Other external cause status; F17.210 Nicotine dependence, cigarettes, uncomplicated
CPT/HCPCS: 72125; 96372; 99284; J1171

== ENCOUNTER → 2024-10-19 04:23 | Outpatient (BNV) | payer OTHER, SELFPAY | PROVIDERS: Emergency Provider Emergency Medicine; Visit Provider Radiology Vascular & Interventional Radiology | DX: R22.1 Localized swelling, mass and lump, neck (principal) | CPT/HCPCS: 72125 ==

== ENCOUNTER 2024-10-30 08:32 | Outpatient (REF) | payer OTHER, SELFPAY ==
--- OUTSIDE RECORDS SUMMARY | 2024-10-30 08:37 | XMS_ITS | Clinical Summary ---
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
--- OUTSIDE RECORDS SUMMARY | 2024-10-30 08:37 | XMS_ITS | Patient Health Record ---
Author Organization [facility] Address [address] [place] [address] Care Team Providers Care An Employee Sponsor Or Advocate And Name Role Phone Juan Canales MD Primary Care Provider Fab Stevens Unavailable [phone] Reason For Referral No Information Encounters Encounter Location Date Provider Diagnosis [facility] [place] [address] [facility] [address] [place] [address] 10/04/2024 Fab Diaz Plan Of Treatment No Information Insurance Providers Payer Name Payer Address Payer Phone Subscriber Number Group Number Insured Name Patient Relationship to Insured Coverage Start Date Coverage End Date [employer] [address] [place] [phone] [id number] Jan Cespedes Self - patient is the insured
[2024-10-30 12:29] LABS: Alanine Aminotransferase 31 U/L (0-40); Albumin Level 4.4 g/dL (3.5-5.0); Alkaline Phosphatase 65 U/L (39-117); Anion Gap 13 (12-20); Aspartate Amino Transferase 30 U/L (5-37); Blood Urea Nitrogen 17 mg/dL (9-16); Calcium 9.6 mg/dL (8.4-10.2); Carbon Dioxide 25 mmol/L (22-29); Chloride 106 mmol/L (96-108); Cholesterol 162 mg/dL (<200); Estimated Glomerular Filt Rate > 60; HDL Cholesterol 34 mg/dL (>40); Potassium 4.0 mmol/L (3.3-5.1); Sodium 140 mmol/L (135-145); Total Protein 7.5 g/dL (6.5-8.0); Triglycerides 123 mg/dL (<150)
[2024-10-30 16:41] LABS: Microalbum/Creatinine Ratio Ur 19.5 ug/mg cr (<30)
== END 2024-10-30 08:33 | disposition home or self-care (01) ==
LOC: HO.WFDLDS 08:32
PROVIDERS: Visit Provider Family Medicine
DX: Z00.00 Encounter for general adult medical examination without abnormal findings (principal); E78.00 Pure hypercholesterolemia, unspecified; I10 Essential (primary) hypertension; E11.40 Type 2 diabetes mellitus with diabetic neuropathy, unspecified
CPT/HCPCS: 36415; 80053; 80061; 82043; 82570

== ENCOUNTER 2024-11-01 08:37 | Outpatient (AMB) | payer OTHER, SELFPAY ==
--- OUTSIDE RECORDS SUMMARY | 2024-11-01 08:43 | XMS_ITS | Patient Health Record ---
[facility] Address [address] [place] [address] Care Team Providers Care Client Insights Consultant Name Role Phone Juan Canales MD Primary Care Provider Fab Stevens Unavailable [phone] Reason For Referral No Information Encounters Encounter Location Date Provider Diagnosis [facility] [place] [address] [facility] [address] [place] [address] 10/04/2024 Fab Diaz Plan Of Treatment No Information Insurance Providers Payer Name Payer Address Payer Phone Subscriber Number Group Number Insured Name Patient Relationship to Insured Coverage Start Date Coverage End Date [employer] [address] [place] [phone] [id number] Jan Cespedes Self - patient is the insured
--- OUTSIDE RECORDS SUMMARY | 2024-11-01 08:43 | XMS_ITS | Clinical Summary ---
Author Organization [facility] it Address [address] [place] [address] Care Team Providers Care Project Manager Name Role Phone Unavailable Primary Care Provider [...]
--- NOTE | 2024-11-01 08:48 | MHC.PC.OV ---
Vital Signs 11/01/24 08:50 Height 6 ft Weight 231 lb 6 oz BMI 31.4 BP 120/80 Blood Pressure Location Lt brachial Position Sitting Respiration 14 Pulse 100 Pulse Source Pulse Oximeter Temp 97.5 F Temp Source Oral Pulse Oximetry (%) 95 Oxygen Delivery Method Room Air Intake Visit Reasons: f/u HLD, DM Intake Note: patient is scheduled for dm follow up and lab review Supplier Relationship Director Required: No Allergies cat dander (CAT) Allergy (Mild, Verified 11/01/24 08:48) FACIAL SWELLING WATERY EYES dog dander (DOG) Allergy (Mild, Verified 11/01/24 08:48) FACIAL SWELLING, WATERY EYES Medication List - Last Reconciled 11/01/24 by Juan Canales MD diazepam (Valium) 5 mg PO TID PRN tirzepatide 5 mg (0.5 mL) subcut QWEEK 28 days Tobacco use date assessed: 08/01/24 Dental Screening Dental Screen Date: 05/02/24 HPI f/u HLD, DM HPI Details 39 y/o male presents to f/u HLD, diabetes. Last A1c 08/01/24 6.7%. A1c today 6.4%. Labs drawn 10/30/24. Reviewed labs with pt. Triglycerides 123. TC 162. LDL 104. HDL low at 34. Blood pressure today 120/80, 100p. Has complaints of L neck/shoulder pain with radicular symptoms into L arm. HPI Comments History of Present Illness Details Documentation assistance for Juan Canales MD, was provided by Sterling Blue,? Clinical Quality Manager on 11/01/2024 at 9:22 AM CURTIS. Jarrett, Dr. Canales, have read, observed, and verified documentation. ? PFSH Medical History Uncontrolled diabetes mellitus with hyperglycemia Cigarette smoker Hypertension Type 2 diabetes mellitus Surgical History Hx of tonsillectomy Social History Household Members: Spouse and Children Housing: Apartment Do you presently have visiting nurse or other home services: No Alcohol intake: current Alcohol intake frequency: does not drink Patient Tobacco Use Status: Current everyday Tobacco user Tobacco use type: Cigarette Cigarettes Per Day: 10 Years Smoked: 16 e-Cigarette/Vaping Use: Never Used Second Hand Smoke Exposure: No Substance Use Type: Marijuana service: No Current occupational status: employed 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 Current occupational exposures/hazards: No Cognitive needs: No Hearing needs: Yes Vision needs: No Questionnaire Thrive Questionnaire Date Thrive assessed: 05/02/24 I am a: Patient What is your living situation today?: I have a steady place to live Within the past 12 months, did the food you bought not last and you didn't have the money to get more?: Never true Within the past 12 months, did you worry whether your food would run out before you got money to buy more?: Never true Do you have trouble paying for medicines?: No Do you have trouble getting transportation to medical appointments?: No Do you have trouble paying your heating and electricity bill?: No Do you have trouble taking care of your child, family member or friend?: No Do you have trouble with day-to-day activities such as bathing, preparing meals, shopping, managing finances, etc.?: No Are you currently unemployed and looking for a job?: No Are you interested in more education?: No Please select the resources that you would like help with: None Currently or been in a relationship where the following occur: No concerns reported THRIVE Score: 0 AMANDA-7 AMB Questionnaire AMANDA-7 Date AMANDA - 7 assessed: 05/02/24 Source: Developed by Drs. Harrison Ramírez, Kristine Cox, Jose Alfredo Zaldivar and colleagues, with an educational lorenzo from [employer]. Review of Systems Const Denies chills, Denies fatigue, Denies fever(s), Denies headache(s) and Denies weakness ENT Denies dizziness, Denies headache(s) and Reports neck pain Card Denies dyspnea Resp Denies cough, Denies dyspnea, Denies wheezing and Denies other (shortness of breath) Musc Reports neck pain, Denies numbness and Denies tingling Neuro Denies dizziness, Denies headache(s), Denies numbness, Denies tingling and Denies weakness Psych Denies anxiety and Denies depression Endo Denies fatigue Aller/Immun Denies wheezing Physical exam (Primary Care) Vital Signs: Last Vital Signs Temp 97.5 F 11/01/24 08:50 Pulse 100 11/01/24 08:50 Resp 14 11/01/24 08:50 BP 120/80 11/01/24 08:50 Pulse Ox 95 11/01/24 08:50 Oxygen Delivery Method Room Air 11/01/24 08:50 BMI result Body Mass Index 31.4 Tobacco/Smoking Status: Tobacco use Status Tobacco use date assessed 08/01/24 11/01/24 08:52 Patient Tobacco Use Status Current everyday Tobacco 11/01/24 08:52 Tobacco use type Cigarette 11/01/24 08:52 e-Cigarette/Vaping Use Never Used 11/01/24 08:52 Thrive Assessment: Date of Thrive Assessment Date Thrive assessed 05/02/24 11/01/24 08:52 Currently or been in a relationship where the following occur: No concerns reported Const General: well developed; No acute distress Nutritional Appearance: well nourished Orientation/consciousness: patient oriented x3 HENMT Head: Yes normocephalic and Yes atraumatic Eyes General: appearance normal, both eyes and all related structures Pupils: Equal, round and reactive pupils present EOM: EOMs intact bilaterally Resp Effort & Inspection: normal respiratory effort Neuro General: patient oriented x3 and gait normal Cranial nerves: Yes Equal, round and reactive pupils present Psych Affect: normal affect Coding Level of Care Code Est Pt Level 4 (40765) Diagnoses Diabetes mellitus with neuropathy E11.40 Elevated LDL cholesterol level E78.00 Low HDL (under 40) E78.6 Cervical radiculopathy M54.12 Assessment & Plan Assessment & Plan (1) Diabetes mellitus with neuropathy: Code(s): E11.40 - Type 2 diabetes mellitus with diabetic neuropathy, unspecified Category: Medical Plan: A1c 6.4%. Good control. Goal is less than 7.0% Taking tirzepatide and has good blood sugar control but he notes that his weight is start creeping up. Requests increase in dose tirzepatide which we will make today. Continue diabetic diet, exercise and weight loss (2) Elevated LDL cholesterol level: Code(s): E78.00 - Pure hypercholesterolemia, unspecified Category: Medical Plan: LDL cholesterol is slightly above goal of less than 100 HDL is low Encouraged dietary changes in weight loss (3) Low HDL (under 40): Code(s): E78.6 - Lipoprotein deficiency Category: Medical Plan: As above (4) Cervical radiculopathy: Code(s): M54.12 - Radiculopathy, cervical region Category: Medical Plan: Left neck and shoulder pain with radicular symptoms into left arm Use naproxen Ice/heat Physical therapy Short course of cyclobenzaprine He will let me know if this is not improving over the course the next couple of weeks or if worsens. Orders: Orders AMB Hemoglobin A1c Today E11.9 - Type 2 diabetes mellitus without complications PT Evaluation and Treatment Today M54.12 - Radiculopathy, cervical region, M54.2 - Cervicalgia Medications: New naproxen 500 mg PO BID PRN 60 tabs 3RF pain 30 days cyclobenzaprine 10 mg PO TID PRN 21 tabs 0RF muscle spasm 7 days Changed From tirzepatide for 4 weeks 5 mg (0.5 mL) subcut QWEEK 28 days 2 mL 3RF E11.40 - Type 2 diabetes mellitus with diabetic neuropathy, unspecified To tirzepatide for 4 weeks 7.5 mg (0.5 mL) subcut QWEEK 2 mL 3RF 28 days E11.40 - Type 2 diabetes mellitus with diabetic neuropathy, unspecified
[2024-11-01 08:50] VITALS: BP 120/80; PULSE 100; RESP 14; TEMP 36.4; O2SAT 95; BMI 31.4
== END 2024-11-01 09:33 | disposition home or self-care (01) ==
LOC: HO.HMCFM 08:38
PROVIDERS: PCP Family Medicine; Visit Provider Family Medicine
DX: E11.40 Type 2 diabetes mellitus with diabetic neuropathy, unspecified (principal); E78.00 Pure hypercholesterolemia, unspecified; E78.6 Lipoprotein deficiency; M54.12 Radiculopathy, cervical region

== ENCOUNTER 2025-02-13 13:44 | Outpatient (AMB) | payer OTHER, SELFPAY ==
--- NOTE | 2025-02-13 13:46 | MHC.PC.OV ---
Vital Signs 02/13/25 13:49 Height 6 ft Weight 233 lb 4 oz BMI 31.6 BP 118/84 Blood Pressure Location Rt brachial Position Sitting Respiration 14 Pulse 94 Pulse Source Pulse Oximeter Temp 97.4 F Temp Source Oral Pulse Oximetry (%) 98 Oxygen Delivery Method Room Air Intake Visit Reasons: F/U Diabetes Intake Note: Follow up diabetes Rehabilitation Assistant Required: No Allergies cat dander (CAT) Allergy (Mild, Verified 02/13/25 13:48) FACIAL SWELLING WATERY EYES dog dander (DOG) Allergy (Mild, Verified 02/13/25 13:48) FACIAL SWELLING, WATERY EYES Medication List - Last Reconciled 02/13/25 by Juan Canales MD tirzepatide 7.5 mg (0.5 mL) subcut QWEEK 28 days Tobacco use date assessed: 02/13/25 Dental Screening Dental Screen Date: 05/02/24 HPI F/U Diabetes HPI Details 49 y/o male presents to f/u diabetes. A1c today 6.2%. No further weight loss. He is asking for increase of his tirzepatide 10mg. Complaints of lump, L shoulder. [facility] Medical History Uncontrolled diabetes mellitus with hyperglycemia Cigarette smoker Hypertension Type 2 diabetes mellitus Surgical History Hx of tonsillectomy Social History (Updated 02/13/25 @ 14:07 by Kylie Mohamud CMA) Household Members: Spouse and Children Housing: Apartment Do you presently have visiting nurse or other home services: No Alcohol intake: current Alcohol intake frequency: does not drink Patient Tobacco Use Status: Current someday Tobacco user Tobacco use type: Cigarette Cigarettes Per Day: 1 Years Smoked: 16 e-Cigarette/Vaping Use: Never Used Second Hand Smoke Exposure: No Substance Use Type: Marijuana service: No Current occupational status: employed 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 Current occupational exposures/hazards: No Cognitive needs: No Hearing needs: Yes Vision needs: No Questionnaire Thrive Questionnaire Date Thrive assessed: 05/02/24 I am a: Patient What is your living situation today?: I have a steady place to live Within the past 12 months, did the food you bought not last and you didn't have the money to get more?: Never true Within the past 12 months, did you worry whether your food would run out before you got money to buy more?: Never true Do you have trouble paying for medicines?: No Do you have trouble getting transportation to medical appointments?: No Do you have trouble paying your heating and electricity bill?: No Do you have trouble taking care of your child, family member or friend?: No Do you have trouble with day-to-day activities such as bathing, preparing meals, shopping, managing finances, etc.?: No Are you currently unemployed and looking for a job?: No Are you interested in more education?: No Please select the resources that you would like help with: None Currently or been in a relationship where the following occur: No concerns reported THRIVE Score: 0 AUDIT C Alcohol Use Questionnaire (AUDIT-C) 1. How often do you have a drink containing alcohol?: Monthly or less 2. How many drinks containing alcohol do you have on a typical day when you are drinking?: 1 or 2 3. How often do you have six or more drinks on one occasion?: Never Total Score: 1 AMANDA-7 AMB Questionnaire AMANDA-7 Date AMANDA - 7 assessed: 05/02/24 Source: Developed by Drs. Harrison Ramírez, Kristine Cox, Jose Alfredo Zaldivar and colleagues, with an educational lorenzo from [employer]. Review of Systems Const Denies chills, Denies fatigue, Denies fever(s), Denies headache(s) and Denies weakness ENT Denies dizziness and Denies headache(s) Card Denies dyspnea Resp Denies cough, Denies dyspnea, Denies wheezing and Denies other (shortness of breath) Musc Denies numbness and Denies tingling Neuro Denies dizziness, Denies headache(s), Denies numbness, Denies tingling and Denies weakness Psych Denies anxiety and Denies depression Endo Denies fatigue Aller/Immun Denies wheezing Physical exam (Primary Care) Vital Signs: Last Vital Signs Temp 97.4 F 02/13/25 13:49 Pulse 94 02/13/25 13:49 Resp 14 02/13/25 13:49 BP 118/84 02/13/25 13:49 Pulse Ox 98 02/13/25 13:49 Oxygen Delivery Method Room Air 02/13/25 13:49 BMI result Body Mass Index 31.6 Tobacco/Smoking Status: Tobacco use Status Tobacco use date assessed 02/13/25 02/13/25 13:55 Patient Tobacco Use Status Current someday Tobacco 02/13/25 14:07 Tobacco use type Cigarette 02/13/25 14:07 e-Cigarette/Vaping Use Never Used 02/13/25 14:07 Thrive Assessment: Date of Thrive Assessment Date Thrive assessed 05/02/24 02/13/25 13:47 Currently or been in a relationship where the following occur: No concerns reported Const General: well developed; No acute distress Nutritional Appearance: well nourished Orientation/consciousness: patient oriented x3 HENMT Head: Yes normocephalic and Yes atraumatic Eyes General: appearance normal, both eyes and all related structures Pupils: Equal, round and reactive pupils present EOM: EOMs intact bilaterally Resp Effort & Inspection: normal respiratory effort Neuro General: patient oriented x3 and gait normal Cranial nerves: Yes Equal, round and reactive pupils present Psych Affect: normal affect Results AMB Hemoglobin A1c AMB Hemoglobin A1c 6.2 % Last Edit by Kylie Mohamud CMA on 02/13/25 14:06 Results Reviewed Results Reviewed: Laboratory Last Values Hgb A1c (Clinic) 6.2 % (4.0-6.0) H 02/13/25 13:55 Coding Level of Care Code Est Pt Level 4 (01402) Diagnoses Type 2 diabetes mellitus E11.9 Obesity E66.9 Lump of skin R22.9 Assessment & Plan Assessment & Plan (1) Type 2 diabetes mellitus: Code(s): E11.9 - Type 2 diabetes mellitus without complications Category: Medical (2) Obesity: Code(s): E66.9 - Obesity, unspecified Category: Medical (3) Lump of skin: Code(s): R22.9 - Localized swelling, mass and lump, unspecified Category: Medical Plan A1c improved from 6.4-6.2%. Good control. Goal is less than 7% Would continue current medication however patient would like to try increasing dose for further weight loss. No weight loss since last visit in fact he gained a couple lb. Increasing to his appetite from 7.5 mg weekly to 10 mg weekly. Had referred patient to Ophthalmology in July but he has not been contacted. Will make a new referral Patient also has complaint of a lump at left shoulder. 1 cm lump which is in subcutaneous tissue and is fir matted or [place] and is mobile. Likely sebaceous cyst. He can use warm soaks Watch for increasing redness or pain Orders: Orders AMB Hemoglobin A1c Today E11.9 - Type 2 diabetes mellitus without complications Medications: Changed From tirzepatide for 4 weeks 7.5 mg (0.5 mL) subcut QWEEK 28 days 2 mL 3RF E11.40 - Type 2 diabetes mellitus with diabetic neuropathy, unspecified To tirzepatide for 4 weeks 10 mg (0.5 mL) subcut QWEEK 2 mL 3RF 28 days E11.40 - Type 2 diabetes mellitus with diabetic neuropathy, unspecified
[2025-02-13 13:49] VITALS: BP 118/84; PULSE 94; RESP 14; TEMP 36.3; O2SAT 98; BMI 31.6
== END 2025-02-13 14:29 | disposition home or self-care (01) ==
LOC: HO.HMCFM 13:45
PROVIDERS: PCP Family Medicine; Visit Provider Family Medicine
DX: E11.9 Type 2 diabetes mellitus without complications (principal); E66.9 Obesity, unspecified; Z68.31 Body mass index [BMI] 31.0-31.9, adult; R22.9 Localized swelling, mass and lump, unspecified

== ENCOUNTER → 2025-02-13 13:44 | Outpatient (BNVA) | payer OTHER, SELFPAY | PROVIDERS: PCP Family Medicine; Visit Provider Family Medicine | DX: E11.40 Type 2 diabetes mellitus with diabetic neuropathy, unspecified (principal); R22.32 Localized swelling, mass and lump, left upper limb; E66.9 Obesity, unspecified; Z68.31 Body mass index [BMI] 31.0-31.9, adult; Z79.899 Other long term (current) drug therapy | CPT/HCPCS: 83036 ==